=== PATIENT | male | born 1945 | race Caucasian/White ===

== ENCOUNTER → 2019-08-24 09:54 | Outpatient (BNVA) | payer MEDICARE, SELFPAY | PROVIDERS: Family Provider Family Medicine; PCP Family Medicine; Visit Provider Urology | DX: N13.8 Other obstructive and reflux uropathy (principal); N40.1 Benign prostatic hyperplasia with lower urinary tract symptoms; F17.210 Nicotine dependence, cigarettes, uncomplicated | CPT/HCPCS: 81001 ==

== ENCOUNTER → 2020-08-23 09:36 | Outpatient (BNVA) | payer MEDICARE, SELFPAY | PROVIDERS: Family Provider Family Medicine; PCP Family Medicine; Visit Provider Urology | DX: N40.1 Benign prostatic hyperplasia with lower urinary tract symptoms (principal); N13.8 Other obstructive and reflux uropathy | CPT/HCPCS: 81003 ==

== ENCOUNTER 2020-11-02 05:54 | Inpatient (IN) | payer MEDICARE, SELFPAY ==
[2020-11-02] VITALS (20 sets, daily range): BP systolic 90–118; BP diastolic 50–73; PULSE 60–144; RESP 18–26; TEMP 36.6; O2SAT 91–95; BMI 23.1
--- NOTE | 2020-11-02 06:07 | W.ED.FALL ---
HPI - Fall General: Chief Complaint: Fall Stated Complaint: FALL Time Seen by Provider: 11/02/20 05:57 History of Present Illness: HPI Narrative: 75-year-old male presents emergency room after a fall at home. He had a mechanical fall yesterday afternoon he is able to get himself up and get into the house and eventually get into bed he was not able to really bear weight on his left leg when he did that. This morning he was unable to get out of bed and called EMS. He states he only has pain if he tries to move or get around. On presentation here he is in atrial fibrillation with a rapid heart rate in the 140s to 150s he denies any chest pain or shortness of breath states he is actually fairly comfortable as long as he does not move around at all. MD complaint: fall Onset (ago): hour(s) Fall from: standing Fall witnessed: no Place fall occurred: home Loss of consciousness: None Prolonged down time: no Context: tripped/slipped Location of injury: pelvis (Left hip) Associated symptoms-after fall: Denies abdominal pain, chest pain, confusion, difficulty walking, headache(s), hematuria, lightheadedness, neck pain, numbness, short of breath, vertigo or weakness Review of Systems Const: Denies: fever(s), chills, body aches, change in appetite, fatigue or malaise ENMT: Denies: throat pain, ear or mastoid pain, nasal discharge or nasal congestion Card: Denies: chest pain or lightheadedness Resp: Denies: dyspnea, productive cough or non-productive cough GI: Denies: abdominal pain : Denies: hematuria Musc: Denies: neck pain Skin/Breast: Denies: rash or pruritus Neuro: Denies: headache(s), difficulty walking, vertigo or confusion PFSH ED PFSH: Medical History BPH w urinary obs/LUTS Chronic progressive lower urinary tract symptoms consistent with BPH with good response to double dose TAMSULOSIN. No objective concerns regarding risk Heart murmur Skin lesion Surgical History H/O cataract removal with insertion of prosthetic lens H/O hernia repair H/O knee surgery Social History Smoking and tobacco status: current every day smoker Alcohol intake: current Alcohol intake frequency: 0-2 Drinks per Day Lives independently: Yes Current occupational status: retired Physical Exam Const: COMMON NORMALS: no acute distress GENERAL APPEARANCE: cooperative and comfortable ORIENTATION/CONSCIOUSNESS: Yes awake, Yes oriented to person, Yes oriented to place and Yes oriented to time HENMT: COMMON NORMALS: normocephalic, atraumatic and hearing grossly normal bilaterally HEAD & SCALP: normocephalic and atraumatic Resp: COMMON NORMALS: normal respiratory effort, No retractions, No use of accessory muscles and clear to auscultation bilaterally AUSCULTATION: clear to auscultation bilaterally Cardio: RATE: tachycardic RHYTHM: abnormal rhythm irregularly irregular GI: COMMON NORMALS: Soft to palpation and No hepatosplenomegaly present AUSCULTATION: Yes normoactive bowel sounds PALPATION: Yes Soft to palpation, No Tenderness to palpation present (GI), No Guarding due to palpation present (GI) and Yes No hepatosplenomegaly present Extremity: COMMON NORMALS: normal to inspection, capillary refill normal, no clubbing, cyanosis or edema, no calf tenderness and no pedal edema Neuro: SENSORIUM/ORIENTATION: Yes oriented to person, Yes oriented to place and Yes oriented to time Skin: COMMON NORMALS: no rashes or lesions noted GENERAL SKIN EXAM: no rashes or lesions noted Course Vital Signs: Vital signs: Vital Signs Temperature 97.9 F 11/02/20 05:55 Pulse Rate 74 11/02/20 10:54 Respiratory Rate 18 11/02/20 10:54 Blood Pressure 107/59 11/02/20 10:54 Pulse Oximetry 94 11/02/20 10:54 MDM - Fall MDM Narrative: Medical decision making narrative: New onset atrial fibrillation with rapid ventricular response additionally patient has mild hyponatremia his primary issue is the left hip fracture. Discussed with Dr. Cachorro Morrissey has been started for rate control ordered an echo as well. Also discussed Dr. Murcia. Lab Data: Labs: Lab Results 11/02/20 11/02/20 11/02/20 Range/Units 07:20 07:20 07:20 WBC 11.6 H (4.0-10.0) 10^3/ uL RBC 4.87 (4.1-5.3) 10^6/u L Hgb 14.7 (11.7-16.6) g/dL Hct 43.1 (42.0-52.0) % MCV 88.5 (80-94) fl MCH 30.2 (28.0-34.0) pg MCHC 34.1 (30.0-36.0) g/dL RDW 14.2 (12.1-15.1) % Plt Count 262 (130-400) 10^3/c mm MPV 9.1 (7.4-10.4) fL Neut % (Auto) 84.4 % Lymph % (Auto) 7.7 % [place] % (Auto) 6.3 % Eos % (Auto) 0.7 % Baso % (Auto) 0.4 % Neut # (Auto) 9.80 H (1.8-7.7) 10^3/u L Lymph # (Auto) 0.9 (0.8-4.8) 10^3/u L [place] # (Auto) 0.7 (0.2-0.9) 10^3/u L Eos # (Auto) 0.1 (0.0-0.8) 10^3/u L Baso # (Auto) 0.1 (0.0-0.1) 10^3/u L Nucleated RBC % (a uto) 0 % Nucleated RBCs # 0.0 /100WBC PT (12.1-14.9) SECO NDS INR (0.8-1.2) APTT (23.9-36.7) SECO NDS Sodium 129 L (136-145) mmol/L Potassium 3.8 (3.5-5.1) mmol/L Chloride 93 L (98-107) mmol/L Carbon Dioxide 23 (22-29) mmol/L Anion Gap 16.8 (5-19) BUN 7 L (8-23) mg/dL Creatinine 0.4 L (0.7-1.2) mg/dL GFR Calculation Not Reportable Glucose 93 (65-115) mg/dL Calculated Osmolal ity 266 L (285-295) mOsm/k g Calcium 8.7 (8.5-10.5) mg/dL Magnesium 1.9 (1.7-2.3) mg/dL Total Bilirubin 1.2 (0.15-1.2) mg/dL AST 14 (0-40) U/L ALT 11 (0-41) U/L Alkaline Phosphata se 95 (40-130) IU/L Troponin T Baselin e 23 H (0-15) ng/L Troponin T 120 Min [place] (0-15) ng/L Delta Troponin T (0-10) ABS# Total Protein 7.3 (6.6-8.7) g/dL Albumin 3.7 (3.5-5.2) g/dL Globulin 3.6 (1.3-4.6) g/dL TSH 3.37 (0.27-4.20) uIU/ mL Urine Color (Yellow) Urine Appearance (CLEAR) Urine pH (5-7) Ur Specific Gravit y (1.005-1.030) Urine Protein (Negative) Urine Glucose (UA) (Normal) Urine Ketones (Negative) Urine Blood (Negative) Urine Nitrate (Negative) Urine Bilirubin (Negative) Urine Urobilinogen (Negative) mg/dL Ur Leukocyte Riana ase (Negative) Urine RBC (0-2) /hpf Urine WBC (0-5) /hpf Ur Squamous Epith Cells (0-5) /hpf Amorphous Sediment Urine Bacteria (NONE) /hpf Urine Mucus /hpf Urine Sperm /hpf 11/02/20 11/02/20 11/02/20 Range/Units 07:20 07:44 09:59 WBC (4.0-10.0) 10^3/ uL RBC (4.1-5.3) 10^6/u L Hgb (11.7-16.6) g/dL Hct (42.0-52.0) % MCV (80-94) fl MCH (28.0-34.0) pg MCHC (30.0-36.0) g/dL RDW (12.1-15.1) % Plt Count (130-400) 10^3/c mm MPV (7.4-10.4) fL Neut % (Auto) % Lymph % (Auto) % [place] % (Auto) % Eos % (Auto) % Baso % (Auto) % Neut # (Auto) (1.8-7.7) 10^3/u L Lymph # (Auto) (0.8-4.8) 10^3/u L [place] # (Auto) (0.2-0.9) 10^3/u L Eos # (Auto) (0.0-0.8) 10^3/u L Baso # (Auto) (0.0-0.1) 10^3/u L Nucleated RBC % (a uto) % Nucleated RBCs # /100WBC PT 15.40 H (12.1-14.9) SECO NDS INR 1.18 (0.8-1.2) APTT 29.5 (23.9-36.7) SECO NDS Sodium (136-145) mmol/L Potassium (3.5-5.1) mmol/L Chloride (98-107) mmol/L Carbon Dioxide (22-29) mmol/L Anion Gap (5-19) BUN (8-23) mg/dL Creatinine (0.7-1.2) mg/dL GFR Calculation Glucose (65-115) mg/dL Calculated Osmolal ity (285-295) mOsm/k g Calcium (8.5-10.5) mg/dL Magnesium (1.7-2.3) mg/dL Total Bilirubin (0.15-1.2) mg/dL AST (0-40) U/L ALT (0-41) U/L Alkaline Phosphata se (40-130) IU/L Troponin T Baselin e (0-15) ng/L Troponin T 120 Min [place] 20.88 H (0-15) ng/L Delta Troponin T -2.12 L (0-10) ABS# Total Protein (6.6-8.7) g/dL Albumin (3.5-5.2) g/dL Globulin (1.3-4.6) g/dL TSH (0.27-4.20) uIU/ mL Urine Color Yellow (Yellow) Urine Appearance Clear (CLEAR) Urine pH 6.5 (5-7) Ur Specific Gravit y 1.015 (1.005-1.030) Urine Protein Neg (Negative) Urine Glucose (UA) Norm (Normal) Urine Ketones 2+ H (Negative) Urine Blood 2+ H (Negative) Urine Nitrate Negative (Negative) Urine Bilirubin Neg (Negative) Urine Urobilinogen 4 H (Negative) mg/dL Ur Leukocyte Riana ase Negative (Negative) Urine RBC 0-4 H (0-2) /hpf Urine WBC None (0-5) /hpf Ur Squamous Epith Cells 0-4 H (0-5) /hpf Amorphous Sediment Not Reportable Urine Bacteria Trace (NONE) /hpf Urine Mucus 1+ /hpf Urine Sperm 1+ /hpf Discharge Plan Discharge Patient Disposition: Admitted As Inpatient Clinical Impression: Atrial fibrillation, Closed left hip fracture, BPH w urinary obs/LUTS Condition: Stable Coding Level of Care Code ED Supervisor for Chg Fwd Exam Detailed
--- NOTE | 2020-11-02 06:08 | XRR_ITS ---
PROCEDURE INFORMATION: Exam: XR Left Hip Exam date and time: 11/02/2020 6:08 AM Age: 75 years old Clinical indication: Injury or trauma; Fall; Blunt trauma (contusions or hematomas); Left; Hip; Injury details: Fell yesterday; Additional info: Fall/pain TECHNIQUE: Imaging protocol: XR Left hip. Views: 2 or 3 views hip with pelvis when performed. COMPARISON: CTA Lower Extremity [id number] 11/16/2015 7:56 AM FINDINGS: Bones/joints: There is a transverse impacted fracture through the left femoral neck with varus deformity. Soft tissues: Unremarkable. XR/XR hip LT 2-3V wo/w pel* [id number] IMPRESSION: Impacted fracture of the left femoral neck.
--- NOTE | 2020-11-02 06:10 | ECG_ITS ---
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 Measurements Intervals [place] Rate: 147 P: MD: QRS: -52 QRSD: 88 T: 64 QT: 275 QTc: 430 Interpretive Statements ATRIAL FIBRILLATION WITH RVR LEFT AXIS DEVIATION [QRS AXIS < -30] Compared to ECG 01/30/2016 10:17:51 Ventricular premature complex(es) now present Sinus rhythm no longer present Electronically Signed On 11-02-2020 20:06:09 CDT by David Merino M.D. [id number]
[2020-11-02] MEDS: sodium chloride 0.9% 500 ML 999 ML IV (06:15)
--- NOTE | 2020-11-02 06:38 | USCV_ITS ---
Elliott Anderson Age: 75 Gender: M : 1945 Exam Date: 11/02/2020 09:18 Ordering Phys: Romeo Cortes DO Technologist: Exam Location: [facility] [place] Indication: MURM BP: 104 / 57 HR: 113 Rhythm: Sinus Technical Quality: Difficult MEASUREMENTS (Male / Female) Normal Values 2D ECHO LV Diastolic Diameter PLAX 3.5 cm 4.2 - 5.9 / 3.9 - 5.3 cm LV Systolic Diameter PLAX 2.5 cm IVS Diastolic Thickness 1.0 cm 0.6 - 1.0 / 0.6 - 0.9 cm IVS Systolic Thickness 1.6 cm LVPW Diastolic Thickness 1.1 cm 0.6 - 1.0 / 0.6 - 0.9 cm LVPW Systolic Thickness 1.1 cm LVOT Diameter 2.0 cm LV Ejection Fraction 2D Teich 53.5 % LV Ejection Fraction MOD 2C 51.1 % LV Ejection Fraction 2C AL 51.8 % LA Diameter 3.1 cm LA Width 4.9 cm LA Height 4.9 cm RA Width 4.3 cm RA Height 5.0 cm Aorta at Sinotubular Diameter 2.9 cm DOPPLER AV Peak Velocity 461.2 cm/s LVOT Peak Velocity 94.0 cm/s AV Area Cont Eq vti 0.8 cm squared AV Area Cont Eq pk 0.7 cm squared MV Area PHT 5.0 cm squared Mitral E to A Ratio 1.6 MV E' Velocity 49.0 cm/s Mitral E to MV E' Ratio 7.4 Mitral E to LV E' Lateral Ratio 6.0 Mitral E to LV E' Septal Ratio 9.8 TR Peak Velocity 259.8 cm/s TR Peak Gradient 27.0 mmHg TV Peak E Velocity 119.0 cm/s Right Atrial Pressure 3.0 mmHg Pulmonary Artery Systolic Pressu 30.0 mmHg FINDINGS Left Ventricle Normal left ventricular size. LV systolic function is normal with EF of 55-60%. No regional wall motion abnormalities. Diastolic function is indeterminate because of atrial fibrillation Right Ventricle The right ventricle is normal in size and function. Right Atrium The right atrium is normal in size. Left Atrium The left atrium is normal in size. Mitral Valve Grossly normal without significant stenosis or prolapse. There is no mitral regurgitation. Aortic Valve Grossly aortic valve is thick and calcified. Severe aortic stenosis is noted. By continuity equation, aortic valve area is 0.73cm2 and mean gradient across the aortic valve is 41mmHg. There is no aortic regurgitation. Tricuspid Valve Structurally normal tricuspid valve without significant stenosis or regurgitation. Insufficient TR jet to calculate RVSP Pulmonic Valve Structurally normal pulmonic valve without significant stenosis. There is no pulmonic regurgitation. Pericardium Normal pericardium without effusion. Aorta Normal ascending aorta dimension. CONCLUSIONS Technically limited quality echocardiogram because of poor ultrasonic windows. LV systolic function is normal with EF of 55 to 60%. Diastolic function is indeterminate because of atrial fibrillation. Aortic valve is grossly thick and calcified. May continue to equation, severe aortic stenosis is noted with aortic valve area of 0.73 cm squared and mean gradient across the valve of 41 mmHg. Compared to prior echocardiogram from 2017, aortic stenosis has progressed from moderate at that time to severe now. David Merino MD (Electronically Signed) Final Date: 02 November 2020 12:42 S
--- NOTE | 2020-11-02 06:43 | XRR_ITS ---
PROCEDURE INFORMATION: Exam: XR Chest Exam date and time: 11/02/2020 6:43 AM Age: 75 years old Clinical indication: Chest pressure; Patient HX: Fall hip pain. Film was done supine. ; Additional info: New onset afib TECHNIQUE: Imaging protocol: XR of the chest. Views: 1 view. COMPARISON: CTA Lower Extremity [id number] 11/16/2015 7:56 AM FINDINGS: Lungs: There is pulmonary vascular prominence with bilateral hazy interstitial pulmonary infiltrates. These findings could be due to heart failure with interstitial edema. A superimposed interstitial pneumonitis cannot be excluded. Pleural spaces: Unremarkable. No pleural effusion. No pneumothorax. Heart/Mediastinum: Heart is not enlarged. There is tortuosity and calcification of the aorta. Bones/joints: Unremarkable. XR/XR chest 1V portable [id number] IMPRESSION: There is pulmonary vascular congestion with bilateral interstitial hazy infiltrates suggesting heart failure with interstitial edema. Superimposed interstitial pneumonia is not excluded.
[2020-11-02 07:30] LABS: Basophils # 0.1 10^3/uL (0.0-0.1); Basophils % 0.4 %; Eosinophils # 0.1 10^3/uL (0.0-0.8); Eosinophils % 0.7 %; Hematocrit 43.1 % (42.0-52.0); Hemoglobin 14.7 g/dL (11.7-16.6); Lymphocytes # 0.9 10^3/uL (0.8-4.8); Lymphocytes % 7.7 %; Mean Corpuscular HGB Conc 34.1 g/dL (30.0-36.0); Mean Corpuscular Hemoglobin 30.2 pg (28.0-34.0); Mean Corpuscular Volume 88.5 fl (80-94); Mean Platelet Volume 9.1 fL (7.4-10.4); Monocytes # 0.7 10^3/uL (0.2-0.9); Monocytes % 6.3 %; Neutrophils % 84.4 %; Nucleated Red Blood Cells % 0 %; Platelet Count 262 10^3/cmm (130-400); Red Blood Count 4.87 10^6/uL (4.1-5.3); Red Cell Distribution Width 14.2 % (12.1-15.1); White Blood Count 11.6 10^3/uL (4.0-10.0)
--- NOTE | 2020-11-02 07:42 | PM.HP ---
Providers/Chief Complaint Primary Care Provider: Leonard Huerta DO Chief Complaint: FALL History of Present Illness Elliott Anderson is a 75 year old male who presents to the hospital with history of fall yesterday and left hip pain since that time. He reports he was carrying a lot of eggs and some orange juice and he fell after loss losing his balance. He denies any dizziness, head injury, loss of consciousness. He reports he has a little bit of breast pain as well on the left. He denies any severe pain when he takes a deep breath. He denies any frequent falls. He reports he does not know that he has any lung disease, but certainly might as he has a long history of smoking. Denies any prior history of coronary disease, or arrhythmia. He reports he has had a heart murmur in the past but this has not been worked up. Denies history of Covid. Was vaccinated April. Review of Systems General: Reports: 10 or more systems reviewed and unremarkable except in HPI and below Const: Denies: fever(s) or chills Eyes: Denies: change in vision ENMT: Denies: throat pain Card: Reports: chest pain (Left-sided musculoskeletal following fall) Resp: Denies: dyspnea (Denies any shortness of breath above baseline.) GI: Denies: abdominal pain : Denies: flank pain Musc: Denies: neck pain Skin/Breast: Denies: rash Neuro: Denies: headache(s) Psych: Denies: anxiety or depression Endo: Denies: polyuria Yohan/Lymph: Denies: easy bruising All/Imm: Denies: urticaria Medications/Allergies Home Medications Medication Instructions Recorded Confirmed Last Taken Type coenzyme Q10 [CoQ-10] 100 mg PO DAILY 11/02/20 11/02/20 10/26/20 History multivitamin 1 tab PO DAILY 11/02/20 11/02/20 10/26/20 History tamsulosin 0.4 mg PO BID 11/02/20 11/02/20 11/01/20 History Allergies Allergy/AdvReac Type Severity Reaction Status Date / Time No Known Allergies Allergy Verified 11/02/20 07:46 PFSH Acute PFSH: Medical History (Updated 11/02/20 @ 07:48 by Kana Martinez MD) BPH w urinary obs/LUTS Chronic progressive lower urinary tract symptoms consistent with BPH with good response to double dose TAMSULOSIN. No objective concerns regarding risk Heart murmur Skin lesion Surgical History H/O cataract removal with insertion of prosthetic lens H/O hernia repair H/O knee surgery Social History Smoking and tobacco status: current every day smoker Alcohol intake: current Alcohol intake frequency: 0-2 Drinks per Day Lives independently: Yes Current occupational status: retired Vitals/I&O/Wt Last Vital Signs Temp 97.9 F 11/02/20 05:55 Pulse 122 H 11/02/20 07:41 Resp 20 H 11/02/20 07:41 BP 111/61 11/02/20 07:41 Pulse Ox 95 11/02/20 07:41 11/01/20 11/02/20 11/02/20 22:59 06:59 14:59 Intake Total 5.083 / 5.083 Balance 5.083 / 5.083 Weight last 48 hrs Weight 79.379 kg Physical Exam Narrative: EXAM NARRATIVE: General exam no distress HEENT: Pupils equally round. Oropharynx clear. Neck is supple no lymphadenopathy thyromegaly Cardiovascular irregularly irregular with accelerated rate but 3/6 systolic murmur heard best at the right upper sternal border, honking in quality Lungs bilateral expiratory wheezes Abdomen is soft with positive bowel sounds. No obvious organomegaly exam is deferred, Jones is noted Extremities no cyanosis clubbing or edema. Some shortening of the left lower extremity with external rotation is noted. Distal pulses intact. Skin no rash Neuro no obvious focal deficits. Urinary Catheter Management^: Jones: Cath Placed During This Visit: yes Urinary Catheter Date of Insertion: 11/02/20 Urinary Catheter Time of Insertion: 07:18 Data : 11/02/20 07:20 11/02/20 07:20 Other data: Left hip film demonstrates leftfemoral neck fracture with shortening. Final reading pending. Chest x-ray demonstrates hilar fullness, COPD/fibrotic disease. Final reading pending. \EKG demonstrates a rate of 147, irregular, A. fib with RVR, left axis deviation, nonspecific ST-T wave changes. 1 PVC is noted. A&P Assessment and plan (1) Closed left hip fracture: No other obvious injuries Will need surgical repair Orthopedic consultation Will allow p.o. diet. The surgical repair is unlikely to occur today. This is secondary to need for treatment of atrial fibrillation with rapid ventricular rate. Status: Acute (2) Atrial fibrillation: Continue Cardizem drip Initiate metoprolol 25 mg p.o. twice daily, titrate up as needed Echocardiogram, suspect aortic stenosis Check TSH, magnesium, electrolytes Cardiology consultation Consider full dose anticoagulation, following surgical repair. Status: Acute (3) Fall: Mechanical fall, no evidence of syncope Status: Acute (4) Wheezing: Budesonide DuoNeb as needed Await formal reading of chest x-ray Status: Acute (5) Heart murmur: Echocardiogram Status: Acute (6) Tobacco dependency: Encourage abstinence Status: Acute (7) BPH w urinary obs/LUTS: Status: Chronic Additional A&P Information Full code SCDs for DVT prophylaxis. Consider pharmacologic DVT prophylaxis with heparin or Lovenox pending further clarification of surgical timing. Secondary to atrial fibrillation will likely need long-term anticoagulation following surgery as well. Attestations Medical Necessity Statement*: Will need greater than 2 midnight stay for treatment of hip fracture in atrial fibrillation with rapid ventricular rate Time Spent in Patient Care: Greater than 35 minutes Coding Level of Care Code Acute Rn Outpatient Surgery for g Fwd Diagnoses Closed left hip fracture S72.002A Atrial fibrillation I48.91 Fall W19.XXXA Wheezing R06.2 Heart murmur R01.1 Tobacco dependency F17.200 BPH w urinary obs/LUTS N40.1; N13.8
[2020-11-02 07:44] LABS: INR 1.18 (0.8-1.2); Partial Thromboplastin Time 29.5 SECONDS (23.9-36.7)
--- NOTE | 2020-11-02 07:47 | PC.PHAR ---
pt states he takes care of his own medications-pt states he only takes one rx medication which is flomax-pt states he hasnt taken his otc meds for a week
[2020-11-02 07:56] LABS: Add Urine Culture? No; Bacteria Urine TRACE /hpf; Bilirubin Urine Neg (Negative); Blood Urine 2+ (Negative); Glucose Urine UA Norm (Normal); Ketones Urine 2+ (Negative); Leukocyte Esterase Urine Negative (Negative); Mucus Urine 1+ /hpf; Nitrate Urine Negative (Negative); Protein Urine Neg (Negative); RBC Urine 0-4 /hpf (0-2); Specific Gravity, Urine 1.015 (1.005-1.030); Sperm Urine 1+ /hpf; Squamous Epithelial Cell Urine 0-4 /hpf (0-5); Urine Appearance Clear (CLEAR); Urine Color Yellow (Yellow); Urobilinogen Urine 4 mg/dL (Negative); pH Urine 6.5 (5-7)
[2020-11-02 07:57] LABS: Troponin(5th) Baseline 23 ng/L (0-15)
[2020-11-02 08:07] LABS: Alanine Aminotransferase 11 U/L (0-41); Albumin Level 3.7 g/dL (3.5-5.2); Alkaline Phosphatase 95 IU/L (40-130); Aspartate Amino Transferase 14 U/L (0-40); Blood Urea Nitrogen 7 mg/dL (8-23); Calcium 8.7 mg/dL (8.5-10.5); Carbon Dioxide 23 mmol/L (22-29); Chloride 93 mmol/L (98-107); Globulin 3.6 g/dL (1.3-4.6); Glucose 93 mg/dL (65-115); Magnesium 1.9 mg/dL (1.7-2.3); Osmolality Calculated 266 mOsm/kg (285-295); Sodium 129 mmol/L (136-145); Thyroid Stimulating Hormone 3.37 uIU/mL (0.27-4.20); Total Bilirubin 1.2 mg/dL (0.15-1.2); Total Protein 7.3 g/dL (6.6-8.7)
--- NOTE | 2020-11-02 08:10 | ECG_ITS ---
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 Measurements Intervals [place] Rate: 111 P: [place]: QRS: -48 QRSD: 101 T: 73 QT: 327 QTc: 446 Interpretive Statements ATRIAL FIBRILLATION WITH RAPID VENTRICULAR RESPONSE LEFT ANTERIOR FASCICULAR BLOCK [QRS AXIS <= -45, QR IN I, RS IN II] Compared to ECG 01/30/2016 10:17:51 Left anterior fascicular block now present Sinus rhythm no longer present Left-axis deviation no longer present Electronically Signed On 11-02-2020 20:09:45 CDT by David Merino M.D. [id number]
[2020-11-02 08:12] LABS: Anion Gap 16.8 (5-19); Potassium 3.8 mmol/L (3.5-5.1)
[2020-11-02] MEDS: heparin 5,000 unit/mL INJ 1 mL 5000 UNIT SUBCUT (08:25)
[2020-11-02 10:23] LABS: Troponin 5 2HR 20.88 ng/L (0-15)
[2020-11-02 10:30] LABS: Troponin 5 2HR Delta -2.12 ABS# (0-10)
[2020-11-02] MEDS: metoprolol tartrate 25 mg Tablet PO (10:55)
--- NOTE | 2020-11-02 12:10 | ECG_ITS ---
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 Measurements Intervals [place] Rate: 60 P: [place]: QRS: -42 QRSD: 102 T: 62 QT: 422 QTc: 422 Interpretive Statements ATRIAL FIBRILLATION INCOMPLETE RIGHT BUNDLE BRANCH BLOCK [90+ ms QRS DURATION, TERMINAL R IN V1/V2, 40+ ms S IN I/aVL/V4/V5/V6] Compared to ECG 11/02/2020 08:23:36 Left-axis deviation now present Incomplete right bundle-branch block now present Left anterior fascicular block no longer present Electronically Signed On 11-02-2020 20:09:06 CDT by David Merino M.D. [id number]
[2020-11-02] MEDS: D5-NS 0.45% + KCL 20 mEq 20 MEQ/1,000 ML BAG 75 MEQ IV (12:26)
--- NOTE | 2020-11-02 12:47 | PM.CONSULT ---
Providers/Reason For Consult Consulting Physician/Specialty*: David Merino MD/ Cardiology Reason for Consult*: Pre op clearance/aortic stenosis Requesting Physician: Dr Martinez Attending Physician: Dolores Villanueva MD Primary Care Provider: Leonard Huerta DO History of Present Illness History of Present Illness Elliott Anderson is a 75 year old male with history of moderate aortic stenosis on echo performed in 2017, presented to the hospital after a fall and was found to have left hip fracture. Plan was to perform surgery and that is the reason cardiology was consulted for preop clearance. Patient also went into A. fib with RVR. He was started on Cardizem drip. Heart rate is controlled. Patient has mild palpable chest discomfort on the left side following fall. No shortness of breath at this time. He was having palpitations before. Echocardiogram was performed and showed severe aortic stenosis with a valve area of 0.7 cm?, mean gradient of 41 mmHg and an EF of 55%. EKG shows atrial fibrillation with RVR. Troponins did not trend up significantly. Denies any symptoms of chest pain at baseline prior to current episode but does get short of breath on exertion. Review of Systems General: Reports: 10 or more systems reviewed and unremarkable except in HPI and below Const: Denies: fever(s) or chills Eyes: Denies: change in vision ENMT: Denies: throat pain Card: Reports: chest pain (Left-sided musculoskeletal following fall) Resp: Reports: dyspnea GI: Denies: abdominal pain : Denies: flank pain Musc: Denies: neck pain Skin/Breast: Denies: rash Neuro: Denies: headache(s) Psych: Denies: anxiety or depression Endo: Denies: polyuria Yohan/Lymph: Denies: easy bruising All/Imm: Denies: urticaria Meds/Allergies Home Medications and Allergies Home Medications Medication Instructions Recorded Confirmed Last Taken Type coenzyme Q10 [CoQ-10] 100 mg PO DAILY 11/02/20 11/02/20 10/26/20 History multivitamin 1 tab PO DAILY 11/02/20 11/02/20 10/26/20 History tamsulosin 0.4 mg PO BID 11/02/20 11/02/20 11/01/20 History Allergies Allergy/AdvReac Type Severity Reaction Status Date / Time No Known Allergies Allergy Verified 11/02/20 07:46 Current Medications Current Medications Generic Name Dose Route Start Last Admin Trade Name Ernst PRN Reason Stop Dose Admin Heparin Sodium (Beef Lung) 5,000 unit 11/02/20 08:00 11/02/20 08:25 Heparin 5,000 Unit/Ml Inj 1 Ml SUBCUT 5,000 unit Q12H ANNA Administration Diltiazem HCl 125 mg/ Sodium 125 mls @ 0 mls/hr 11/02/20 06:15 11/02/20 12:32 Chloride IV 5 mg/hr .Q0M ANNA 5 mls/hr Titration Protocol Per Protocol Potassium Chloride/Dextrose/Sod Cl 20 meq in 1,000 mls @ 75 mls/hr 11/02/20 12:07 11/02/20 12:26 D5-Ns 0.45% + Kcl 20 Meq IV 75 mls/hr .[id number] ANNA Administration Metoprolol Tartrate 25 mg 11/02/20 09:00 11/02/20 10:55 Metoprolol Tartrate 25 Mg Tablet PO 25 mg BID@0900,2100 ANNA Administration PFSH Acute PFSH: Medical History BPH w urinary obs/LUTS Chronic progressive lower urinary tract symptoms consistent with BPH with good response to double dose TAMSULOSIN. No objective concerns regarding risk Heart murmur Skin lesion Surgical History H/O cataract removal with insertion of prosthetic lens H/O hernia repair H/O knee surgery Social History Smoking and tobacco status: current every day smoker Alcohol intake: current Alcohol intake frequency: 0-2 Drinks per Day Lives independently: Yes Current occupational status: retired Vitals/I&O/Wt Last Vital Signs Temp 97.9 F 11/02/20 05:55 Pulse 72 11/02/20 12:08 Resp 18 11/02/20 12:08 BP 100/54 11/02/20 12:08 Pulse Ox 92 11/02/20 12:08 11/01/20 11/02/20 11/02/20 22:59 06:59 14:59 Intake Total 74.917 / 74.917 Balance 74.917 / 74.917 Weight last 48 hrs Weight 175 lb Physical Exam Narrative: EXAM NARRATIVE: GENERAL: Patient is alert, awake and oriented x3. [] NECK: No jugular vein distension. [] HEENT: No cyanosis. No icterus. No pallor. [] HEART: Irregularly irregular heart rhyhtm, grade 4/6 systolic murmur best heard on right sternal borders radiating to the carotids LUNGS: Clear to auscultate bilaterally. [] ABDOMEN: Soft, nontender and nondistended. Positive bowel sounds. No guarding, rebound or tenderness. [] CENTRAL NERVOUS SYSTEM: Grossly nonfocal. [] EXTREMITIES: Lower extremities with 1+ edema bilaterally. Pulses palpable in the lower extremities, both dorsalis pedis and posterior tibial. [] Urinary Catheter Management^: Jones: Cath Placed During This Visit: yes Urinary Catheter Date of Insertion: 11/02/20 Urinary Catheter Time of Insertion: 07:18 A&P Assessment and plan (1) Atrial fibrillation: Status: Acute (2) Severe aortic stenosis: Status: Acute (3) Tobacco dependency: Status: Acute (4) Pre-operative clearance: Status: Acute Patient has presented with hip fracture and will need surgery for that. He has new onset atrial fibrillation which has been rate controlled at this time. Hold off on anticoagulation in anticipation of surgical procedure. Can receive DVT prophylaxis dose. Patient is at high cardiac risk to undergo surgical procedure given his severe aortic stenosis. We will recommend transferring him to tertiary care center for orthopedic surgery with ability to perform balloon valvuloplasty/for TAVR if needed to emergently and have cardiac anesthesia availability. Patient's heart rate is well controlled at this time. Continue current medications. Thank you for involving us with care of this patient. Please call with questions. Coding Level of Care Code Acute Balance Wheel Motion Inspector for Jw Mazariegos Diagnoses Atrial fibrillation I48.91 Severe aortic stenosis I35.0 Tobacco dependency F17.200 Pre-operative clearance Z01.818
--- NOTE | 2020-11-02 12:49 | PM.MISC ---
Miscellaneous Note Purpose of Documentation: Review of x-ray with decision for appropriate intervention. Subsequent cancellation secondary to medical issues. Note: This morning, I was consulted by the emergency room physician regarding this patient with a subcapital left hip fracture. I reviewed the imaging studies and scheduled him for surgical intervention after cardiology evaluation and medical optimization. At approximately 12:15 p.m., I received a call from the hospitalist stating that the patient would likely be transferred secondary to severe aortic stenosis. Currently, this transfer is pending, but a formal consultation will not be made at this time at the request of the hospitalist team.
[2020-11-02 13:03] LABS: SARS Covid-2 Antigen Negative (Negative)
--- NOTE | 2020-11-02 13:07 | PM.TDS ---
Transfer Summary Providers Date of Admission: 11/02/20 06:58 Date of Discharge: 11/02/20 Attending Provider at Admission: Kana Martinez MD Attending Provider at Transfer: Kana Martinez MD Primary Care Provider: Leonard Huerta DO Anticipated Date of Transfer: Anticipated date of transfer: 11/02/20 Receiving Facility & Provider: Receiving Provider: [Dr. Moffett] Receiving facility: [[facility]] Diagnoses at Discharge Discharge Diagnosis (1) Closed left hip fracture: Status: Acute (2) Atrial fibrillation: Status: Acute (3) Fall: Status: Acute (4) Wheezing: Status: Acute (5) Heart murmur: Status: Acute (6) Tobacco dependency: Status: Acute (7) BPH w urinary obs/LUTS: Status: Chronic Permanent problem details: Chronic progressive lower urinary tract symptoms consistent with BPH with good response to double dose TAMSULOSIN. No objective concerns regarding risk Reason for Visit Reason for Visit: FALL Hospital Course Hospital Course Elliott presented to hospital with history of mechanical fall the day previously. He was having left hip pain. On arrival to the emergency department he was found to be in atrial fibrillation with rapid ventricular rate. X-ray of the hip demonstrated a left femoral neck fracture with varus deformity and impaction of the fracture site. In the emergency department the ER physician ordered Cardizem for control of his atrial fibrillation. I was called for admission. The patient was known to have a cardiac murmur. On auscultation this appeared to be aortic stenosis. Echocardiogram was obtained, as well as EKG troponin and other lab work. Troponin demonstrated no significant delta. EKG demonstrated a right bundle branch block. No ST elevation or ST depression that was significant was noted. Echocardiogram was called to me by cardiology, and demonstrated severe aortic stenosis with a valve area of 0.7, significant gradient, and an EF of 50 to 55%. Cardiology believe the patient needed transfer to a larger facility who has the ability to do aortic valvuloplasty/TAVR and have cardiac anesthesia available secondary to his aortic stenosis. This was arranged in [facility] kindly accepted the patient. When I last evaluated the patient vital signs were stable, heart rate was 70, Cardizem drip was at 10 mg/h. Metoprolol had been initiated on the patient to try to transition him off Cardizem drip, and he received his first dose of 25 mg in the emergency department. Physical Exam Narrative: EXAM NARRATIVE: See exam done earlier today, no changes Urinary Catheter Management^: Jones: Cath Placed During This Visit: yes Urinary Catheter Date of Insertion: 11/02/20 Urinary Catheter Time of Insertion: 07:18 TS Data Data Completed and Pending: Completed Studies During Hospitalization Category Date Time Status XR chest 1V cole ble [id number] Stat Exams 11/02/20 06:43 Completed XR hip LT 2-3V wo /w pel* [id number] Stat Exams 11/02/20 06:08 Completed CV. echo complete * [id number] Stat Ultrasound 11/02/20 06:38 Completed Pending at discharge Category Date Time Status Complete Blood Co unt w/Auto AM LABS Lab 11/03/20 04:00 Ordered Comprehensive Met abolic Panel AM LA BS Lab 11/03/20 04:00 Ordered Troponin(5th) 6 h our. Timed Lab 11/02/20 12:10 Ordered Labs from last 24 hours 11/02/20 11/02/20 11/02/20 12:37 09:59 07:44 WBC RBC Hgb Hct MCV MCH MCHC RDW Plt Count MPV Neut % (Auto) Lymph % (Auto) Troup % (Auto) Eos % (Auto) Baso % (Auto) Neut # (Auto) Lymph # (Auto) Troup # (Auto) Eos # (Auto) Baso # (Auto) Nucleated RBC % (a uto) Nucleated RBCs # PT INR APTT Sodium Potassium Chloride Carbon Dioxide Anion Gap BUN Creatinine GFR Calculation Glucose Calculated Osmolal ity Calcium Magnesium Total Bilirubin AST ALT Alkaline Phosphata se Troponin T Baselin e Troponin T 120 Min [place] 20.88 H Delta Troponin T -2.12 L Total Protein Albumin Globulin TSH Urine Color Yellow Urine Appearance Clear Urine pH 6.5 Ur Specific Gravit y 1.015 Urine Protein Neg Urine Glucose (UA) Norm Urine Ketones 2+ H Urine Blood 2+ H Urine Nitrate Negative Urine Bilirubin Neg Urine Urobilinogen 4 H Ur Leukocyte Riana ase Negative Urine RBC 0-4 H Urine WBC None Ur Squamous Epith Cells 0-4 H Amorphous Sediment Not Reportable Urine Bacteria Trace Urine Mucus 1+ Urine Sperm 1+ SARS-CoV-2 Ag (Rap id) Negative 11/02/20 11/02/20 11/02/20 07:20 07:20 07:20 WBC RBC Hgb Hct MCV MCH MCHC RDW Plt Count MPV Neut % (Auto) Lymph % (Auto) Troup % (Auto) Eos % (Auto) Baso % (Auto) Neut # (Auto) Lymph # (Auto) Troup # (Auto) Eos # (Auto) Baso # (Auto) Nucleated RBC % (a uto) Nucleated RBCs # PT 15.40 H INR 1.18 APTT 29.5 Sodium 129 L Potassium 3.8 Chloride 93 L Carbon Dioxide 23 Anion Gap 16.8 BUN 7 L Creatinine 0.4 L GFR Calculation Not Reportable Glucose 93 Calculated Osmolal ity 266 L Calcium 8.7 Magnesium 1.9 Total Bilirubin 1.2 AST 14 ALT 11 Alkaline Phosphata se 95 Troponin T Baselin e 23 H Troponin T 120 Min [place] Delta Troponin T Total Protein 7.3 Albumin 3.7 Globulin 3.6 TSH 3.37 Urine Color Urine Appearance Urine pH Ur Specific Gravit y Urine Protein Urine Glucose (UA) Urine Ketones Urine Blood Urine Nitrate Urine Bilirubin Urine Urobilinogen Ur Leukocyte Riana ase Urine RBC Urine WBC Ur Squamous Epith Cells Amorphous Sediment Urine Bacteria Urine Mucus Urine Sperm SARS-CoV-2 Ag (Rap id) 11/02/20 07:20 WBC 11.6 H RBC 4.87 Hgb 14.7 Hct 43.1 MCV 88.5 MCH 30.2 MCHC 34.1 RDW 14.2 Plt Count 262 MPV 9.1 Neut % (Auto) 84.4 Lymph % (Auto) 7.7 Troup % (Auto) 6.3 Eos % (Auto) 0.7 Baso % (Auto) 0.4 Neut # (Auto) 9.80 H Lymph # (Auto) 0.9 Troup # (Auto) 0.7 Eos # (Auto) 0.1 Baso # (Auto) 0.1 Nucleated RBC % (a uto) 0 Nucleated RBCs # 0.0 PT INR APTT Sodium Potassium Chloride Carbon Dioxide Anion Gap BUN Creatinine GFR Calculation Glucose Calculated Osmolal ity Calcium Magnesium Total Bilirubin AST ALT Alkaline Phosphata se Troponin T Baselin e Troponin T 120 Min [place] Delta Troponin T Total Protein Albumin Globulin TSH Urine Color Urine Appearance Urine pH Ur Specific Gravit y Urine Protein Urine Glucose (UA) Urine Ketones Urine Blood Urine Nitrate Urine Bilirubin Urine Urobilinogen Ur Leukocyte Riana ase Urine RBC Urine WBC Ur Squamous Epith Cells Amorphous Sediment Urine Bacteria Urine Mucus Urine Sperm SARS-CoV-2 Ag (Rap id) Vitals: Last Vital Signs Temp 97.9 F 11/02/20 05:55 Pulse 63 11/02/20 13:03 Resp 20 H 11/02/20 13:03 BP 96/61 11/02/20 13:03 Pulse Ox 93 11/02/20 13:03 TS Medications Medications Home Medications coenzyme Q10 [CoQ-10] 100 mg PO DAILY 11/02/20 [History Confirmed 11/02/20] multivitamin 1 tab PO DAILY 11/02/20 [History Confirmed 11/02/20] tamsulosin 0.4 mg PO BID 11/02/20 [History Confirmed 11/02/20] Active Medications Acetaminophen (Acetaminophen 325 Mg Tablet) 650 mg PO Q6H PRN PRN Reason: Mild/Mod Pain Or Temp >/= 101 Albuterol/Ipratropium (Ipratropium-Albuterol 3 Ml Neb) 3 ml INHALATION Q6H PRN PRN Reason: SHORTNESS OF BREATH Budesonide (Budesonide 0.5 Mg/2 Ml Neb) 0.5 mg INHALATION BID.RESPIRATORY ANNA Heparin Sodium (Beef Lung) (Heparin 5,000 Unit/Ml Inj 1 Ml) 5,000 unit SUBCUT Q12H ANNA Last Admin: 11/02/20 08:25 Dose: 5,000 unit Documented by: Diltiazem HCl 125 mg/ Sodium (Chloride) 125 mls @ 0 mls/hr IV .Q0M ANNA; Protocol Last Titration: 11/02/20 12:32 Dose: 5 mg/hr, 5 mls/hr Documented by: Potassium Chloride/Dextrose/Sod Cl (D5-Ns 0.45% + Kcl 20 Meq) 20 meq in 1,000 mls @ 75 mls/hr IV .[id number] ANNA Last Admin: 11/02/20 12:26 Dose: 75 mls/hr Documented by: Metoprolol Tartrate (Metoprolol Tartrate 25 Mg Tablet) 25 mg PO BID@0900,2100 [facility] Last Admin: 11/02/20 10:55 Dose: 25 mg Documented by: Morphine Sulfate (Morphine 4 Mg/Ml Sdv 1 Ml) 4 mg IVP Q4H PRN PRN Reason: SEVERE PAIN Ondansetron HCl (Ondansetron 2 Mg/Ml Sdv 2 Ml) 4 mg IVP Q6H PRN PRN Reason: vomiting, or N/V if npo Tamsulosin HCl (Tamsulosin 0.4 Mg Capsule) 1 mg PO BID [facility] Discharge Plan Discharge Patient Disposition: Xfer Short-Term Hosp Condition: Stable Prescriptions: No Action multivitamin Tablet 1 tab PO DAILY RF: 0 CoQ-10 100 mg Capsule 100 mg PO DAILY RF: 0 tamsulosin 0.4 mg capsule 0.4 mg PO BID RF: 0 Discharge Orders: Transfer Out of Facility (Order); Ordered 11/02/20 Ordered By: Kana Martinez Referrals: Leonard Huerta DO [Primary Care Provider] - Transfer Attestations Time Spent in Transfer Care*: greater than 30 min Status at Transfer: Cognitive status at transfer: cognitively intact, Quality Metrics Clinical Quality Measures: During this hospital stay, did patient experience: None Coding Level of Care Code Acute Pusher Runner for Chg Fwd Diagnoses Closed left hip fracture S72.002A Atrial fibrillation I48.91 Fall W19.XXXA Wheezing R06.2 Heart murmur R01.1 Tobacco dependency F17.200 BPH w urinary obs/LUTS N40.1; N13.8
[2020-11-02 14:25] LABS: Troponin 5 6HR 20.09 ng/L (0-15)
[2020-11-02 14:29] LABS: Troponin 5 6HR Delta -2.91 ng/L (0-12)
[2020-11-02] MEDS: heparin drip 25,000 UNIT/500 ML PREMIX 22.23 UNIT IV (14:37)
--- NOTE | 2020-11-03 18:20 | PC.RESP ---
Smoking Cessation information sent to patient.
== END 2020-11-02 19:08 | disposition short-term general hospital (02) | DRG 536 ==
LOC: ER 10:29 → ER IP 12:34
PROVIDERS: Internal Medicine; Admitting Provider Student in an Organized Health Care Education/Training Program; Emergency Provider Family Medicine; PCP Family Medicine; Visit Provider Student in an Organized Health Care Education/Training Program
DX: S72.012A Unspecified intracapsular fracture of left femur, initial encounter for closed fracture (principal); N13.8 Other obstructive and reflux uropathy; E87.1 Hypo-osmolality and hyponatremia; W01.0XXA Fall on same level from slipping, tripping and stumbling without subsequent striking against object, initial encounter; I48.91 Unspecified atrial fibrillation; N40.1 Benign prostatic hyperplasia with lower urinary tract symptoms; F17.210 Nicotine dependence, cigarettes, uncomplicated; J44.9 Chronic obstructive pulmonary disease, unspecified; I35.0 Nonrheumatic aortic (valve) stenosis
CPT/HCPCS: 51702; 71045; 73502; 80053; 81001; 83735; 84443; 84484; 85025; 85610; 85730; 87426; 93005; 93306; 96365; 96367; 96372; 96375; 99291; 99292; J1644; J3490; J7040

== ENCOUNTER → 2020-12-11 15:43 | Outpatient (BNVA) | payer MEDICARE, SELFPAY | PROVIDERS: PCP Family Medicine; Visit Provider Nurse Practitioner Family | DX: R82.71 Bacteriuria (principal); N40.1 Benign prostatic hyperplasia with lower urinary tract symptoms; N13.8 Other obstructive and reflux uropathy | CPT/HCPCS: 81003; 87077; 87086; 87184 ==

== ENCOUNTER 2020-12-21 09:08 | Outpatient (CLI) | payer MEDICARE, SELFPAY ==
--- NOTE | 2020-12-21 13:01 | ONC CON_ITS ---
Dr. Caraballo New Patient Note Patient: Elliott Anderson Unit #: [id number]: 1945 Dicatated By: Roger Caraballo M.D.Date of Visit: Dec 21, 2020 Onc MED New Patient/Consult Referring Physician: Juan Antonio Robles Chief Complaint: Lung cancer. 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 On 11/02/2020 he was admitted to the hospital with traumatic left hip fracture. It occurred in association with atrial fibrillation/RVR and severe aortic stenosis. Due to the aortic stenosis, he was transferred to [facility] for further management, where he underwent a valvuloplasty procedure followed by left hip hemiarthroplasty. His preoperative evaluation also included chest CT which showed a 2.5 x 2.7 cm spiculated mass in the right upper lobe with extension into the mediastinum and right hilum. Overall the soft tissue mass measured 6.9 x 3.8 cm. The mass was noted to encase and significantly narrow the right lobar and segmental pulmonary arteries and was also noted to encase the right upper lobe bronchus. There were associated small mediastinal left hilar lymph nodes. An additional spiculated nodule measuring 8 mm was noted in the right apex. Other findings included severe emphysematous changes bilaterally. There was complete collapse of the left lower lung secondary to occlusion of the left lower lobe bronchus thought to be related to mucous plugging. CT abdomen/pelvis showed no obvious metastatic disease and there was also no metastatic disease noted on contrast-enhanced head CT scan. On 11/09/2020 he underwent bronchoscopy/EBUS. There were copious secretions found throughout the tracheobronchial tree which were partially obstructing the airway, and nose were suctioned. There is apparently no endobronchial lesion identified. You underwent FNA biopsy of left and right paratracheal and subcarinal lymph nodes. Cytology on the 4L in the subcarinal lymph nodes were negative, but the 4R FNA biopsy was positive for metastatic non-small cell carcinoma. The PD-L1 expression by IHC was negative at < 1%. He was then transferred to [place] for rehabilitation, and he has since then been able to return home. He is seen now for further management of the lung cancer. He still has very limited activity, though he is able to ambulate short distances with a walker. His ECOG score is 3. His appetite has not been good, though lately it has been getting a little better. He has had a recent weight loss in the range of 15 pounds. He does not have fever or night sweats. He reports some visual blurring/haziness. He has not had sore throat or difficulty swallowing. He has a little bit of cough at night. He does not complain of shortness of breath, and he has not had chest pain or hemoptysis. He has no GI complaints other than some constipation, but that also is improving. He required an indwelling Jones catheter while he was at rehab. He is now voiding adequately, but he has on antibiotic therapy for urinary tract infection. He has some pain in his left hip with ambulation. He has no other joint or bone pain. He does not complain of headache or dizziness, and he has no focal neurologic symptoms. Past Medical History: His medical history includes aortic stenosis, atrial fibrillation, benign prostatic hypertrophy, and chronic obstructive pulmonary disease. Past Surgical History: He underwent valvuloplasty for aortic stenosis on 11/06/2020, left total hip arthroplasty on 11/07/2020, and bronchoscopy/EBUS on 11/09/2020. His other surgical/procedural history includes arthroscopic right knee surgery, bilateral cataract excisions, hernia repair, and left knee surgery. Medications: Apixaban 1 Tablet (of 5 mg) Oral b.i.d., Aspirin 81 1 Tablet (of 81 mg) Tablet, chewable Oral daily, Bactrim DS 1 Tablet (of 800-160 mg) Oral b.i.d. for 3 days, Metoprolol Tartrate 12.5 mg (of 25 mg) Tablet Oral daily, Tamsulosin HCl 1 Capsule (of 0.4 mg) Oral b.i.d. Allergies: No Known Allergies. Social History: Mr. Anderson is . 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 He has history of smoking 1 pack of cigarettes daily for about 50 years. He quit smoking in October 2020. He says that he used to drink a lot, but he cut down significantly about 6 to 8 months ago. He now drinks 1 beer daily. Family History: His father and his sister both with dementia. He does not know anything about his mother. Review Of Symptoms: Constitutional - He still has very limited activity. Is able to ambulate short distances with a walker. His appetite has not been good, but it is getting a little better. He has had recent weight loss of about 15 pounds. He does not have fever or night sweats. ECOG score is 3, Eyes - His vision has been blurry, ENMT - No hearing loss or tinnitus. No sinus congestion/drainage. No mouth sores. No sore throat or difficulty swallowing, Hematologic/Lymphatic - He has easy bruising, but no other bleeding, Respiratory - He has a little bit of cough at night. He says his breathing is fine. No pleuritic pain or hemoptysis, Cardiovascular - No angina pain. No palpitations, Gastrointestinal - No nausea or vomiting. No heartburn or acid reflux. He has been having some constipation. No blood in the stool or black stools, Genitourinary (M) - He was having difficulty voiding and he had Jones catheter placed during rehab. Bladder function now is adequate, but he is on antibiotic for urinary tract infection, Musculoskeletal - He has some left hip pain with ambulation. He has no other joint or bone pain, Integumentary - He has dry skin. He has a decubitus ulceration on the left heel, Neurologic - No headache or dizziness. No numbness or tingling. No other focal neurologic symptoms, Psychiatric - No anxiety or depression. No insomnia. Vital Signs: Performed on Dec 21, 2020 09:50: 0, 0, 21.37, 1.97 sq.m, 73 in, 97 %, 65 /min, 18 /min, 103/57 mm(hg), 97.8 F (LOW), and 162 lbs (HIGH). Physical Examination: Constitutional - He appears generally weak and chronically ill, Eyes - Sclerae nonicteric. Conjunctivae clear, ENMT - No lesions noted in the oral cavity, Neck - No mass or thyromegaly, Hematologic/Lymphatic - No cervical, clavicular, or axillary adenopathy, Respiratory - Lungs sound clear with diminished air movement bilaterally, Cardiovascular - Heart rhythm is regular. There is a II/ systolic murmur. There is no gallop or rub noted, Abdomen - Soft and non-tender. Liver and spleen are not enlarged. There is no abdominal mass or ascites noted and there is no inguinal adenopathy, Back/Spine - No spine or CVA tenderness noted, Extremities - There are venous stasis changes bilaterally. There is slight edema on the left. There is a palpable posterior tibial pulse on the right. I am not able to palpate a pulse in the left foot, but it is warm to touch. He has fairly extensive purpura, Integumentary - His skin is dry and flaky. There is an ulceration on the left heel. There are no suspicious skin lesions noted, Neurologic - No focal neurologic deficits noted. Problem List: 1. Non-small cell carcinoma involving the upper lobe of the right lung, stage at least IIIB (T3, N2, M0). 2. He had CT evidence of left lower lobe atelectasis, presumed to be due to mucous plugging. 3. Aortic stenosis, status post valvuloplasty procedure on 11/06/2020. 4. Traumatic left hip fracture, status post hemiarthroplasty on 11/07/2020. 5. Atrial fibrillation. 6. COPD. 7. Benign prostatic hypertrophy. 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 He underwent bronchoscopy/EBUS on 11/09/2020. The diagnosis was confirmed by FNA biopsy of station 4R lymph node. The tumor was negative for PD-L1 expression, <1%. CT shows relatively large primary malignancy in the right upper lobe/right hilar area. There is additional 8 mm satellite nodule in the right apex, which appears suspicious. The CT findings and pathology results reviewed with the patient and we discussed the clinical implications. He has a non-small cell lung cancer with biopsy-proven mediastinal lymph node involvement. He is advised that his disease is inoperable. In the absence of any metastatic disease, the standard treatment would be radiation and concurrent chemotherapy with potential for subsequent maintenance immunotherapy. Treatment recommendations may change, though, depending on the status of the right apical pulmonary nodule and/or evidence of other metastatic disease. As such, he will be scheduled now for staging PET/CT. I will see him again when those results are available. In the meantime, as he is on full dose anticoagulation with apixaban, he is recommended to stop aspirin. Signed By: Roger Caraballo M.D. <<Signature on File>>
== END 2020-12-21 09:09 | disposition home or self-care (01) ==
PROVIDERS: PCP Family Medicine; Visit Provider Internal Medicine Medical Oncology
DX: C34.11 Malignant neoplasm of upper lobe, right bronchus or lung (principal); J98.11 Atelectasis; I70.0 Atherosclerosis of aorta; Z96.642 Presence of left artificial hip joint; I48.91 Unspecified atrial fibrillation; J44.9 Chronic obstructive pulmonary disease, unspecified; N40.0 Benign prostatic hyperplasia without lower urinary tract symptoms; Z23 Encounter for immunization; Z79.899 Other long term (current) drug therapy
CPT/HCPCS: 90471; 90670; 90686; 99205

== ENCOUNTER 2021-01-17 08:30 | Outpatient (CLI) | payer MEDICARE, SELFPAY | END 2021-01-17 08:31 | disposition home or self-care (01) | LOC: ONCMED 08:33 | PROVIDERS: PCP Family Medicine; Visit Provider Internal Medicine Medical Oncology | DX: C34.11 Malignant neoplasm of upper lobe, right bronchus or lung (principal) | CPT/HCPCS: 36415 ==

== ENCOUNTER 2021-02-01 10:23 | Outpatient (CLI) | payer MEDICARE, SELFPAY ==
--- NOTE | 2021-02-02 08:33 | ONC FU_ITS ---
Dr. Caraballo Patient Follow-Up Note Patient: Elliott Anderson Unit #: [id number]: 1945 Dicatated By: Roger Caraballo M.D.Date of Visit:Feb 01, 2021 Onc Med Follow-up/Prog Note Chief Complaint: Lung cancer. 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 On 11/02/2020 he was admitted to the hospital with traumatic left hip fracture. It occurred in association with atrial fibrillation/RVR and severe aortic stenosis. Due to the aortic stenosis, he was transferred to [facility] for further management, where he underwent a valvuloplasty procedure followed by left hip hemiarthroplasty. His preoperative evaluation also included chest CT which showed a 2.5 x 2.7 cm spiculated mass in the right upper lobe with extension into the mediastinum and right hilum. Overall the soft tissue mass measured 6.9 x 3.8 cm. The mass was noted to encase and significantly narrow the right lobar and segmental pulmonary arteries and was also noted to encase the right upper lobe bronchus. There were associated small mediastinal left hilar lymph nodes. An additional spiculated nodule measuring 8 mm was noted in the right apex. Other findings included severe emphysematous changes bilaterally. There was complete collapse of the left lower lung secondary to occlusion of the left lower lobe bronchus thought to be related to mucous plugging. CT abdomen/pelvis showed no obvious metastatic disease and there was also no metastatic disease noted on contrast-enhanced head CT scan. On 11/09/2020 he underwent bronchoscopy/EBUS. There were copious secretions found throughout the tracheobronchial tree which were partially obstructing the airway, and nose were suctioned. There is apparently no endobronchial lesion identified. You underwent FNA biopsy of left and right paratracheal and subcarinal lymph nodes. Cytology on the 4L in the subcarinal lymph nodes were negative, but the 4R FNA biopsy was positive for metastatic non-small cell carcinoma. The PD-L1 expression by IHC was negative at < 1%. He was then transferred to [place] for rehabilitation, and he subsequently was able to return home. I had seen him initially on 12/21/2020. His further evaluation included a staging PET/CT on 01/01/2021. 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 This included a left parotid mass measuring 1.6 x 1.2 cm with SUV 7.76 and an additional medial nodular density within the left parotid measuring 8.3 x 13.6 mm with SUV 10.02. A 9.3 mm density either within or anterior to the right parotid had SUV 5.61 and there are multiple additional right parotid lesions with SUVs ranging from 3.13-6.24. A level 2 lymph node just behind the right parotid measuring 8.4 mm was FDG avid with SUV 8.07. A large right hilar mass which was noted to invade the mediastinum and encases the right upper lobe bronchus measured 6.7 x 4.0 cm and was FDG avid with SUV 14.09. A left lower lobe superior segment subpleural nodular density measuring 4.2 x 3.6 cm had SUV 12.18. Left bronchial and hilar lymphadenopathy showed increased metabolic activity with SUVs of 11.16 and 5.50. A spiculated nodule in the right apex anteriorly was FDG negative and an additional spiculated nodule in the right upper lobe measuring 8.4 x 10.4 mm was FDG avid with SUV 3.18. Right carinal lymph nodes measuring 1.2 and 1.7 cm were FDG avid with SUV of 13.55 and 10.57. Overall, the findings were consistent with bilateral pulmonary neoplastic lesions and bilateral neoplastic parotid gland lesions and associated right cervical level 2, left bronchial, left hilar, and right subcarinal lymph node involvement. His evaluation also included next generation sequencing by liquid biopsy which showed no actionable mutations. His medical illnesses, in addition to the aortic stenosis and atrial fibrillation, include COPD and benign prostatic hypertrophy. He has a history of smoking 1 pack of cigarettes daily for about 50 years. He quit smoking in October 2020. He is seen for a follow-up visit. He still has limited activity, but he is ambulatory with a walker and he is trying to exercise more. His ECOG score is 2. He has pretty good appetite for breakfast, not much the rest of the day. He has gained weight. He does not have fever or night sweats. He is having difficulty with his vision. He does not have sore throat or difficulty swallowing. He has shortness of breath with activity. He tends to have cough when he first goes to bed. He is not having chest pain or hemoptysis. He has no GI complaints other than constipation, his bowels are moving about every other day. He says his urination is too frequent. He currently is not having any significant joint or bone pain. He does not complain of headache. He does have some lightheadedness and he also has difficulty with balance. He has no numbness/paresthesia or other focal neurologic symptoms. Medications: Apixaban 1 Tablet (of 5 mg) Oral b.i.d., Aspirin 81 1 Tablet (of 81 mg) Tablet, chewable Oral daily, Bactrim DS 1 Tablet (of 800-160 mg) Oral b.i.d. for 3 days, Metoprolol Tartrate 12.5 mg (of 25 mg) Tablet Oral daily, Tamsulosin HCl 1 Capsule (of 0.4 mg) Oral b.i.d. Allergies: No Known Allergies. Vital Signs: Performed on Feb 01, 2021 10:51 Height - 73.00 in Weight - 176.0 lbs (HIGH) BSA - 2.04 sq.m BMI - 23.22 Temperature - 97.0 F (LOW) Pulse - 129 /min (HIGH) Respiration - 18 /min BP - 145/63 mm(hg) (HIGH) O2 Sat - 98 % Pain - 0 Fatigue - 10 Physical Examination: Constitutional - He appears somewhat weak generally, Eyes - Sclerae nonicteric. Conjunctivae clear, ENMT - No lesions noted in the oral cavity, Hematologic/Lymphatic - No cervical, clavicular, or axillary adenopathy, Respiratory - Lungs show coarse breath sounds and some decrease in air movement bilaterally, Cardiovascular - Heart rhythm is irregular. There is a II/ systolic murmur. There is no gallop or rub noted, Abdomen - Soft. Liver and spleen are not enlarged. There is no abdominal mass or ascites noted. There is a large inguinal hernia on the right. There is no inguinal adenopathy noted, Extremities - There are venous stasis changes bilaterally. There is no edema, Neurologic - No focal neurologic deficits noted. Problem List: 1. Non-small cell carcinoma involving the upper lobe of the right lung, by clinical evaluation stage at least NICOLE (T4, N3, M1a). 2. He had CT evidence of left lower lobe atelectasis, initially thought to be due to mucous plugging. 3. Aortic stenosis, status post valvuloplasty procedure on 11/06/2020. 4. Traumatic left hip fracture, status post hemiarthroplasty on 11/07/2020. 5. Atrial fibrillation. 6. COPD. 7. Benign prostatic hypertrophy. 8. Right inguinal hernia. 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 He underwent bronchoscopy/EBUS on 11/09/2020. The diagnosis was confirmed by FNA biopsy of station 4R lymph node. The tumor was negative for PD-L1 expression, <1%. CT showed relatively large primary malignancy in the right upper lobe/right hilar area. Staging PET/CT showed FDG avid right hilar mass measuring 6.7 x 4.0 cm. There was associated invasion of the mediastinum. A 4.2 x 3.6 cm left lower lobe mass was also FDG avid. Other findings included bilateral FDG avid parotid lesions. There appeared to be involved cervical level 2, left bronchial, left hilar, and right subcarinal lymph nodes. As such, his disease appears to be stage at least NICOLE (T4, N3, M1a) and possibly IVB to be aware of the parotid lesions represent metastatic disease or an unrelated malignant process. There were no actionable mutations identified on next generation sequencing by liquid biopsy. The PET/CT findings and pathology were reviewed with the patient and his son, and we discussed the clinical implications. While there is some uncertainty as to the staging of his lung cancer, with bilateral pulmonary masses he is clearly not a candidate for chemoradiation. With a PD-L1 negative tumor and in the absence of an actionable mutation, the recommended treatment would be combined chemotherapy/immunotherapy utilizing carboplatin/paclitaxel for the chemotherapy regimen. I reviewed anticipated side effects with the chemotherapy which may include nausea/vomiting, alopecia, weakness/fatigue, low blood counts, and neuropathy, among others. I also reviewed potential side effects with the immunotherapy which may include enteritis, pneumonitis, endocrinopathies, skin rash, joint pain, and renal or hepatic dysfunction, among others. Given the potential for those side effects, I also discussed the possibility of limiting treatment to palliative radiation to the right hilar mass. Patient indicates that he does want to pursue treatment aggressively, but he tells me now that he is scheduled to have a repeat echocardiogram later this month in preparation for additional surgery for the aortic stenosis. 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 Signed By: Roger Caraballo M.D. <<Signature on File>>
== END 2021-02-01 10:24 | disposition home or self-care (01) ==
LOC: ONCMED 10:27
PROVIDERS: PCP Family Medicine; Visit Provider Internal Medicine Medical Oncology
DX: C34.11 Malignant neoplasm of upper lobe, right bronchus or lung (principal); I48.91 Unspecified atrial fibrillation; J44.9 Chronic obstructive pulmonary disease, unspecified; N40.0 Benign prostatic hyperplasia without lower urinary tract symptoms; I35.0 Nonrheumatic aortic (valve) stenosis; Z87.891 Personal history of nicotine dependence
CPT/HCPCS: 99215

== ENCOUNTER → 2021-02-06 07:53 | Outpatient (BNVA) | payer MEDICARE, SELFPAY | PROVIDERS: PCP Family Medicine; Visit Provider Nurse Practitioner Family | DX: R60.9 Edema, unspecified (principal) | CPT/HCPCS: 80048; 83880 ==

== ENCOUNTER 2021-02-09 09:52 | Outpatient (CLI) | payer MEDICARE, SELFPAY ==
--- NOTE | 2021-02-09 09:55 | USCV_ITS ---
Elliott Anderson Age: 76 Gender: M : 1945 Exam Date: 02/09/2021 10:11 Ordering Phys: RENNY KELLER Technologist: Gabriella Holbrook Exam Location: [facility] [place] Indication: POST WORK ON AO. BP: 120 / 80 HR: 112 Rhythm: Sinus Technical Quality: Technically difficult study MEASUREMENTS (Male / Female) Normal Values 2D ECHO LV Diastolic Diameter PLAX 3.1 cm 4.2 - 5.9 / 3.9 - 5.3 cm LV Systolic Diameter PLAX 1.9 cm IVS Diastolic Thickness 1.0 cm 0.6 - 1.0 / 0.6 - 0.9 cm IVS Systolic Thickness 1.2 cm LVPW Diastolic Thickness 1.1 cm 0.6 - 1.0 / 0.6 - 0.9 cm LVPW Systolic Thickness 1.5 cm LVOT Diameter 2.0 cm LV Ejection Fraction 2D Teich 72.6 % LV Ejection Fraction MOD 2C 63.7 % LV Ejection Fraction 2C AL 64.1 % LA Diameter 3.5 cm Aorta at Sinotubular Diameter 3.3 cm M-MODE Aortic Annulus Diameter 3.3 cm LA Ao Ratio MM 1.2 MV E Point Septal Separation 0.5 cm DOPPLER AV Peak Velocity 343.5 cm/s LVOT Peak Velocity 80.6 cm/s AV Area Cont Eq vti 0.8 cm squared AV Area Cont Eq pk 0.7 cm squared TR Peak Velocity 198.8 cm/s TR Peak Gradient 15.8 mmHg TR Mean Velocity 115.0 cm/s TR Mean Gradient 6.5 mmHg TR Velocity Time Integral 34.0 cm TV Peak E Velocity 75.0 cm/s FINDINGS Left Ventricle Normal left ventricular cavity size. Normal left ventricular systolic function. No regional wall motion abnormalities. Left ventricular ejection fraction is estimated at 60 %. Right Ventricle Normal right ventricular size. RVSP could not be calculated due to incomplete tricuspid regurgitation velocity profile. Right Atrium The right atrium is normal in size. Left Atrium The left atrium is normal in size. Mitral Valve Structurally normal mitral valve without significant stenosis or prolapse. There is no mitral regurgitation. Aortic Valve Severe aortic valve calcification. Moderate to severe aortic valve stenosis, mean gradient 24 mmHg, ERIKA 0.85 cm squared. Mild aortic valve regurgitation. Tricuspid Valve Mild tricuspid valve regurgitation. Pulmonic Valve Structurally normal pulmonic valve without significant stenosis. There is no pulmonic regurgitation. Pericardium Normal pericardium without effusion. Aorta Normal ascending aorta dimension. CONCLUSIONS 1-Normal left ventricular cavity size. Normal left ventricular systolic function. No regional wall motion abnormalities. Left ventricular ejection fraction is estimated at 60 %. 2-Severe aortic valve calcification. Moderate to severe aortic valve stenosis, mean gradient 24 mmHg, ERIKA 0.85 cm squared. Mild aortic valve regurgitation. 3-Mild tricuspid valve regurgitation. 4-There is no pericardial effusion. 5-No significant change since the prior echocardiogram study of 12/02/2020. Ruddy Self MD (Electronically Signed) Final Date: 10 February 2021 15:27 S
== END 2021-02-09 09:53 | disposition home or self-care (01) ==
LOC: US 09:54
PROVIDERS: PCP Family Medicine; Visit Provider Internal Medicine Cardiovascular Disease
DX: I08.2 Rheumatic disorders of both aortic and tricuspid valves (principal)
CPT/HCPCS: 93308; 93325

== ENCOUNTER → 2021-02-12 09:20 | Outpatient (BNVA) | payer MEDICARE, SELFPAY | PROVIDERS: PCP Family Medicine; Visit Provider Urology | DX: R33.9 Retention of urine, unspecified (principal) | CPT/HCPCS: 81003; 87077; 87086; 87184 ==

== ENCOUNTER 2021-02-14 16:32 | Outpatient (CLI) | payer MEDICARE, SELFPAY ==
--- NOTE | 2021-02-14 17:00 | CTR_ITS ---
PROCEDURE INFORMATION: Exam: CTA Chest With Contrast Exam date and time: 02/14/2021 5:00 PM Age: 76 years old Clinical indication: Shortness of breath; Additional info: Lung CA, swelling in both arms TECHNIQUE: Imaging protocol: Computed tomographic angiography of the chest with contrast. 3D rendering (Not supervised by radiologist): MIP and/or 3D reconstructed images were created by the technologist. Total images: 905 Radiation optimization: All CT scans at this facility use at least one of these dose optimization techniques: automated exposure control; mA and/or kV adjustment per patient size (includes targeted exams where dose is matched to clinical indication); or iterative reconstruction. Contrast material: OMNI 350; Contrast volume: 95 ml; Contrast route: INTRAVENOUS (IV); COMPARISON: CTA Chest w Abd/Pel w* 11/03/2020 4:37 PM RADIATION DOSE METRICS: Total DLP (mGy-cm): 634.78 FINDINGS: Pulmonary arteries: No visible evidence of pulmonary embolism/pulmonary arterial thrombus. Aorta: The thoracic aorta is nonaneurysmal. No visible intimal flap or dissection. Moderately advanced arterial sclerotic disease. Tortuous thoracic aorta often seen in hypertensive cardiovascular disease. Lungs: Marked progression of disease of lung carcinoma. Right upper lobe, right suprahilar, and right middle mediastinal tumor mass has increased substantially in volume resulting in complete occlusion of the right upper lobe bronchus and collapse of the right upper lobe. Three new large metastatic neoplasm masses left lower lobe superior segment largest measuring approximately 5.5 cm x 4.3 cm and a 2nd inferiorly measuring approximately 4.7 cm x 3.1 cm and a 3rd measuring approximately 3.3 cm in diameter. Small hematogenous metastasis right lung identified. Advanced centrilobular emphysema. Pleural spaces: Moderate volume right pleural effusion presumed malignant. Heart: Microcardia. Left ventricular hypertrophy. No visible pericardial effusion. Advanced 3 vessel coronary artery disease. 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 Extensive venous collateralization. Lymph nodes: Evidence of lymphangitic metastasis. Mediastinal and bilateral hilar tumor lymphadenopathy. Bilateral marginal axillary lymphadenopathy. Bones/joints: No visible acute osseous abnormality. No visible osteolytic or osteoblastic destructive process. Degenerative disease of the spine with diffuse idiopathic skeletal hyperostosis. Soft tissues: Anasarca. CT/CT angio chest PE protcl [id number] IMPRESSION: 1. No visible evidence of pulmonary embolism/pulmonary arterial thrombus. 2. Superior vena cava syndrome as detailed in text above. 3. Marked progression of lung carcinoma as detailed in text above. 4. Evidence of lymphangitis metastasis with mediastinal and bilateral hilar tumor lymphadenopathy. 5. Prominent bilateral axillary lymph nodes. 6. Anasarca. 7. Other nonurgent, nonemergent, chronic, and age related findings as detailed in text above.
[2021-02-14] MEDS: iohexol 350 mg/mL 100 mL Btl IV (18:01)
== END 2021-02-14 16:33 | disposition home or self-care (01) ==
LOC: RAD 16:34
PROVIDERS: PCP Family Medicine; Visit Provider Internal Medicine Medical Oncology
DX: C34.11 Malignant neoplasm of upper lobe, right bronchus or lung (principal); M79.89 Other specified soft tissue disorders; R06.02 Shortness of breath; R60.1 Generalized edema
CPT/HCPCS: 71275

== ENCOUNTER 2021-02-22 06:19 | Outpatient (RCR) | payer MEDICARE, SELFPAY ==
[2021-02-14 14:12] LABS: Basophils # 0.1 10^3/uL (0.0-0.1); Basophils % 0.9 %; Eosinophils # 0.3 10^3/uL (0.0-0.8); Eosinophils % 4.9 %; Hematocrit 30.2 % (42.0-52.0); Hemoglobin 9.6 g/dL (11.7-16.6); Lymphocytes # 1.3 10^3/uL (0.8-4.8); Lymphocytes % 19.8 %; Mean Corpuscular HGB Conc 31.8 g/dL (30.0-36.0); Mean Corpuscular Volume 85.1 fl (80-94); Mean Platelet Volume 8.8 fL (7.4-10.4); Monocytes # 0.7 10^3/uL (0.2-0.9); Monocytes % 10.7 %; Neutrophils # 4.26 10^3/uL (1.8-7.7); Neutrophils % 63.4 %; Nucleated Red Blood Cells % 0 %; Platelet Count 298 10^3/cmm (130-400); Red Blood Count 3.55 10^6/uL (4.1-5.3); Red Cell Distribution Width 14.8 % (12.1-15.1); White Blood Count 6.7 10^3/uL (4.0-10.0)
[2021-02-14 14:33] LABS: Alanine Aminotransferase 12 U/L (0-41); Albumin Level 3.8 g/dL (3.5-5.2); Alkaline Phosphatase 108 IU/L (40-130); Anion Gap 19.2 (5-19); Aspartate Amino Transferase 16 U/L (0-40); Blood Urea Nitrogen 7 mg/dL (8-23); Calcium 8.5 mg/dL (8.5-10.5); Carbon Dioxide 21 mmol/L (22-29); Chloride 94 mmol/L (98-107); Globulin 3.5 g/dL (1.3-4.6); Glucose 88 mg/dL (65-115); NT Pro B Type Natriuretic Pept 568 pg/mL (0-450); Osmolality Calculated 267 mOsm/kg (285-295); Potassium 4.2 mmol/L (3.5-5.1); Sodium 130 mmol/L (136-145); Total Bilirubin 0.4 mg/dL (0.15-1.2); Total Protein 7.3 g/dL (6.6-8.7)
[2021-02-14 15:41] LABS: Iron 33 ug/dL (59-158); Percent Saturation 12.3 % (20-50); Total Iron Binding Capacity 268 mcg/dl; Unsaturated Iron Binding 235 ug/dL (112-347)
--- NOTE | 2021-02-14 17:27 | ONC FU_ITS ---
Dr. Caraballo Patient Follow-Up Note Patient: Elliott Anderson Unit #: [id number]: 1945 Dicatated By: Roger Caraballo M.D.Date of Visit:Feb 14, 2021 Onc Med Follow-up/Prog Note Chief Complaint: Lung cancer. 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 On 11/02/2020 he was admitted to the hospital with traumatic left hip fracture. It occurred in association with atrial fibrillation/RVR and severe aortic stenosis. Due to the aortic stenosis, he was transferred to [facility] for further management, where he underwent a valvuloplasty procedure followed by left hip hemiarthroplasty. His preoperative evaluation also included chest CT which showed a 2.5 x 2.7 cm spiculated mass in the right upper lobe with extension into the mediastinum and right hilum. Overall the soft tissue mass measured 6.9 x 3.8 cm. The mass was noted to encase and significantly narrow the right lobar and segmental pulmonary arteries and was also noted to encase the right upper lobe bronchus. There were associated small mediastinal left hilar lymph nodes. An additional spiculated nodule measuring 8 mm was noted in the right apex. Other findings included severe emphysematous changes bilaterally. There was complete collapse of the left lower lung secondary to occlusion of the left lower lobe bronchus thought to be related to mucous plugging. CT abdomen/pelvis showed no obvious metastatic disease and there was also no metastatic disease noted on contrast-enhanced head CT scan. On 11/09/2020 he underwent bronchoscopy/EBUS. There were copious secretions found throughout the tracheobronchial tree which were partially obstructing the airway, and nose were suctioned. There is apparently no endobronchial lesion identified. You underwent FNA biopsy of left and right paratracheal and subcarinal lymph nodes. Cytology on the 4L in the subcarinal lymph nodes were negative, but the 4R FNA biopsy was positive for metastatic non-small cell carcinoma. The PD-L1 expression by IHC was negative at < 1%. He was then transferred to [place] for rehabilitation, and he subsequently was able to return home. I had seen him initially on 12/21/2020. His further evaluation included a staging PET/CT on 01/01/2021. 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 This included a left parotid mass measuring 1.6 x 1.2 cm with SUV 7.76 and an additional medial nodular density within the left parotid measuring 8.3 x 13.6 mm with SUV 10.02. A 9.3 mm density either within or anterior to the right parotid had SUV 5.61 and there are multiple additional right parotid lesions with SUVs ranging from 3.13-6.24. A level 2 lymph node just behind the right parotid measuring 8.4 mm was FDG avid with SUV 8.07. A large right hilar mass which was noted to invade the mediastinum and encases the right upper lobe bronchus measured 6.7 x 4.0 cm and was FDG avid with SUV 14.09. A left lower lobe superior segment subpleural nodular density measuring 4.2 x 3.6 cm had SUV 12.18. Left bronchial and hilar lymphadenopathy showed increased metabolic activity with SUVs of 11.16 and 5.50. A spiculated nodule in the right apex anteriorly was FDG negative and an additional spiculated nodule in the right upper lobe measuring 8.4 x 10.4 mm was FDG avid with SUV 3.18. Right carinal lymph nodes measuring 1.2 and 1.7 cm were FDG avid with SUV of 13.55 and 10.57. Overall, the findings were consistent with bilateral pulmonary neoplastic lesions and bilateral neoplastic parotid gland lesions and associated right cervical level 2, left bronchial, left hilar, and right subcarinal lymph node involvement. His evaluation also included next generation sequencing by liquid biopsy which showed no actionable mutations. His medical illnesses, in addition to the aortic stenosis and atrial fibrillation, include COPD and benign prostatic hypertrophy. He has a history of smoking 1 pack of cigarettes daily for about 50 years. He quit smoking in October 2020. INTERIM HISTORY: I had seen him for a follow-up visit on 02/01/2021. At that point he was beginning to show some improvement in his performance status. Treatment for the lung cancer was deferred pending repeat echocardiogram and further recommendations from his cardiac surgeon. The echocardiogram, on 02/09/2021 showed normal left ventricular systolic function with ejection fraction estimated at 60%. There was severe aortic valve calcification and moderate to severe aortic valve stenosis with a mean gradient of 24 mmHg and ERIKA 0.85 cm???. There was mild aortic valve regurgitation. There was no pericardial effusion. He is seen now for an unplanned visit, as he has now developed swelling in both arms. He has also been feeling lightheaded. He is able to ambulate short distances with a walker. His ECOG score is 2. His appetite is not very good. He has not had fever or night sweats. He has not had sore throat or difficulty swallowing. He says his breathing is terrible at times, but at other times it is okay. He does get short of breath with activity. He does not have much cough. He has not had chest pain or hemoptysis. He has no GI complaints. During his hospitalization and rehab he had catheter associated urinary tract infection twice, and since he has been home he has continued to have problems with bladder function. He is seeing Dr. Bear. He is not having any significant joint or bone pain. He has no focal neurologic symptoms. Medications: Apixaban 1 Tablet (of 5 mg) Oral b.i.d., Aspirin 81 1 Tablet (of 81 mg) Tablet, chewable Oral daily, Bactrim DS 1 Tablet (of 800-160 mg) Oral b.i.d. for 3 days, Metoprolol Tartrate 12.5 mg (of 25 mg) Tablet Oral daily, Tamsulosin HCl 1 Capsule (of 0.4 mg) Oral b.i.d. Allergies: No Known Allergies. Vital Signs: Performed on Feb 14, 2021 15:35 Height - 73.00 in Weight - 185.8 lbs (HIGH) BSA - 2.09 sq.m BMI - 24.51 Temperature - 97.5 F (LOW) Pulse - 81 /min Respiration - 18 /min BP - 144/67 mm(hg) (HIGH) O2 Sat - 97 % Pain - 0 Fatigue - 10 Physical Examination: Constitutional - He appears generally weak, Eyes - Sclerae nonicteric. Conjunctivae clear, ENMT - No lesions noted in the oral cavity, Neck - There is no swelling noted in the neck or face. There is no jugular venous distention, Hematologic/Lymphatic - No cervical, clavicular, or axillary adenopathy, Respiratory - Lungs show coarse breath sounds bilaterally. There is some decrease in air movement which is worse on the right, Cardiovascular - Heart rhythm is regular. There is a II/ systolic murmur. There is no gallop or rub noted, Abdomen - Soft. Liver and spleen are not enlarged. There is no abdominal mass or ascites noted. There is a large inguinal hernia on the right. There is no inguinal adenopathy noted, Extremities - He has developed swelling of both arms extending down to the dorsum of the hands. There is mild lower extremity edema, Neurologic - No focal neurologic deficits noted. Lab/Imaging: Test performed on Feb 14, 2021 13:50 NT proBNP 568 pg/mL Iron 33 mcg/dL Sodium 130 mmol/L Iron Binding Capacity (TIBC) 268 mcg/dl Potassium 4.2 mmol/L % Iron Saturation 12.3 % Chloride 94 mmol/L CO2 21 mmol/L UIBC 235 mcg/dL Anion Gap 19.2 BUN 7 mg/dL Creatinine 0.4 mg/dL Cr Clearance (Est) 190.21 mL/min Glucose 88 mg/dL Osmolality - Calculated 267 mOsm/kg Calcium 8.5 mg/dL Protein, Total 7.3 g/dL Albumin 3.8 g/dL Globulin 3.5 g/dL Bilirubin, Total 0.4 mg/dL ALT (SGPT) 12 U/L AST (SGOT) 16 U/L Alkaline Phosphatase 108 IU/L WBC 6.7 10 3/uL RBC 3.55 10 6/uL HGB 9.6 g/dL HCT 30.2 % MCV 85.1 fl MCH 27.0 pg MCHC 31.8 g/dL RDW 14.8 % Platelet Count 298 10 3/cmm MPV 8.8 fL Neutrophils 4.26 10 3/uL Lymphocytes 1.3 10 3/uL Monocytes 0.7 10 3/uL Eosinophils 0.3 10 3/uL Basophils 0.1 10 3/uL Neutrophil % 63.4 % Lymphocyte % 19.8 % Monocyte % 10.7 % Eosinophil % 4.9 % Basophils % 0.9 % NRBC % 0 % Problem List: 1. Non-small cell carcinoma involving the upper lobe of the right lung, by clinical evaluation stage at least NICOLE (T4, N3, M1a). 2. He had CT evidence of left lower lobe atelectasis, initially thought to be due to mucous plugging. 3. Aortic stenosis, status post valvuloplasty procedure on 11/06/2020. 4. Traumatic left hip fracture, status post hemiarthroplasty on 11/07/2020. 5. Atrial fibrillation. 6. COPD. 7. Benign prostatic hypertrophy. 8. Right inguinal hernia. Problems Addressed with this Encounter and Plan: 1. 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 He underwent bronchoscopy/EBUS on 11/09/2020. The diagnosis was confirmed by FNA biopsy of station 4R lymph node. The tumor was negative for PD-L1 expression, <1%. CT showed relatively large primary malignancy in the right upper lobe/right hilar area. Staging PET/CT showed FDG avid right hilar mass measuring 6.7 x 4.0 cm. There was associated invasion of the mediastinum. A 4.2 x 3.6 cm left lower lobe mass was also FDG avid. Other findings included bilateral FDG avid parotid lesions. There appeared to be involved cervical level 2, left bronchial, left hilar, and right subcarinal lymph nodes. As such, his disease appears to be stage at least NICOLE (T4, N3, M1a) and possibly IVB to be aware of the parotid lesions represent metastatic disease or an unrelated malignant process. There were no actionable mutations identified on next generation sequencing by liquid biopsy. The PET/CT findings and pathology were reviewed with the patient and his son, and we discussed the clinical implications. He was advised that he would not be a candidate for chemoradiation, and that any treatment would be palliative. He indicated, though, that he did want to pursue treatment aggressively. We discussed the fact that with a PD-L1 negative tumor and with no actionable mutations identified, the best option would be combined chemotherapy/immunotherapy utilizing carboplatin/paclitaxel for the chemotherapy regimen. However, his treatment initially was deferred pending repeat echocardiogram and further recommendations from his cardiovascular surgeon. The echocardiogram showed moderate to severe aortic stenosis but with normal left ventricular systolic function. Following discussion with the cardiovascular surgeon, the plan was to proceed with treatment for the lung cancer. With evidence of significant response, he would then potentially be eligible for aortic valve replacement. In the meantime, he has now developed significant swelling in both arms. Given the location of his tumor, the findings are highly suspicious for developing superior vena cava obstruction. As such, he is being evaluated today with a CT angiogram of the chest. If it does confirm vena cava obstruction, he will be referred to Dr. Franklin on an urgent basis for palliative radiation prior to beginning any systemic therapy. 2. He has moderately severe anemia with low transferrin saturation, consistent with iron deficiency. He will initially start on oral iron supplementation. If he is not showing response or not able to tolerate the oral iron, he will be given parenteral iron replacement. Signed By: Roger Caraballo M.D. <<Signature on File>>
--- NOTE | 2021-02-15 | CT_ITS ---
Radiation Therapy Planning CT images; total exam DLP: 572.71 mGy-cm MTDD
--- NOTE | 2021-02-15 10:54 | N.ONRAD NP_ITS ---
Radiation Oncology Consultation Patient Name: Elliott Anderson Date of : 1945 Date of Service: 02/15/2021 Attending Physician: Gurwinder Franklin M.D. Elliott Anderson was seen for urgent consultation this morning at the request of Roger Caraballo M.D. for consideration of palliative thoracic radiotherapy. In October, he was transported by EMS to be evaluated at the [facility] Emergency Department after he sustained a fall at home. Upon arrival, an ECG identified atrial fibrillation with rapid ventricular rate. A left hip radiograph identified a transverse impacted fracture femoral neck with a varus deformity. Chest x-ray revealed pulmonary vascular congestion suggesting heart failure. An echocardiogram diagnosed severe aortic stenosis with an aortic valve area of 0.73 cm??? and a mean gradient of 41 mmHg. He was transferred to [facility] in [place], [place] for management of the aortic valve stenosis. A thoracoabdominopelvic CT scan according to TAVR protocol demonstrated a 2.5 cm x 2.7 cm spiculated mass within the right upper lobe of the lung contiguous with the right cristian and mediastinum. The mass encases the right upper lobe bronchus resulting in moderate narrowing. Mediastinal and left hilar lymphadenopathy was described. A cardiac catheterization with balloon aortic valvuloplasty and left hip hemiarthroplasty were performed on November 06 ??? 2020. A bronchoscopy with EBUS guided biopsy was completed on November 09, 2020. The biopsy from lymph node station 4R was positive for metastatic non-small cell carcinoma. Immunostains positive for p40 and negative for TTF-1???1 and consistent with squamous cell carcinoma. The tumor???s PD???L1 TPS was less than 1% and there was no ALK gene rearrangement/deletion nor ROS1 gene rearrangement. A PET CT ordered on January 01, 2021 identified a 6.7 cm x 4 cm right hilar mass (SUV 14.1), a left lower lobe subpleural nodule measuring 4.2 cm x 3.6 cm (SUV 12.2), left hilar adenopathy (SUV 11.2), and bilateral parotid masses with FDG activity. On February 14, 2021, he requested an appointment with his medical oncologist for bilateral upper extremity edema. Physical exam reported edema bilateral extending to the dorsum of the hands. No jugulo-venous distention. A CT angiogram (independently reviewed in synapse) confirmed disease progression of the right upper lobe mass resulting in complete occlusion of the superior vena cava, and right upper lobe bronchus with collapse of the right upper lobe lung. Also described were left lower lobe masses measuring 5.5 cm x 4.3 cm, 7 cm x 3.1 cm, and 3.3 cm. The patient was evaluated for emergent palliative thoracic radiotherapy in the setting of superior vena cava syndrome. Following a discussion concerning Mr. Anderson??? symptoms, an attempt at palliative radiotherapy is warranted. I would recommend a two week course of hypo-fractionated radiotherapy focusing upon the previously described right upper lobe and hilar mass. A computed tomographic radiotherapy planning scan will be performed to identify the gross tumor volume. The potential toxicities of thoracic radiotherapy were reviewed. The patient has verbalized understanding would like to proceed as recommended. The patient's medical treatment plan was discussed with Ree Mccormack M.D. Signed by: Dr. Gurwinder Franklin 02/15/2021 10:52:25 AM
--- NOTE | 2021-02-19 12:57 | ONCRAD TMN_ITS ---
Radiation Oncology Weekly Treatment Management Patient: Justin Tejada MR#: [id number] : 1945> Attending Physician: Dr. Gabe Christie Date of Service: 02/19/2021 Referring Physician(s) : Roger Caraballo M.D. Diagnosis: C34.11 - Malignant neoplasm of upper lobe, right bronchus or lung, Diagnosed 02/01/2021 (Active) Stage NICOLE, T4, N3, M1a Radiotherapy to date: Course: SVC Syn 2020, Treatment Site: SVC Syndrome, Ref. ID: [id number], Energy: 15X, Dose/Fx (cGy): 300, #Fx: 3 / 10, Dose Correction (cGy): 0, Total Dose (cGy): 900, Start Date: 02/15/2021, Elapsed Days: 4 Reason for visit: The patient is being seen today as part of their regularly scheduled weekly on treatment visits to assess for acute toxicities from radiotherapy. Mr. Anderson was seen in the treatment room prior to his third treatment because of some serous drainage and slight bleeding from the area of severe lymphedema in his right arm. There was no evidence of infection in the area of drainage was wrapped. His treatment occurred routinely and he was seen in nursing. Although the treating therapist impression is that he has improved, the patient is concerned about lightheadedness with standing and feeling poorly in general. He does not have any shortness of breath, and that certainly represents improvement. No troublesome cough or hemoptysis. Review of Systems: See above for symptoms related to SVC syndrome. He does state that he was hospitalized in [place] for a protracted period of time and had a catheter placed in his bladder. He has continued to have some issues with voiding and is under the care of Dr. Bear. He says that Dr. Bear has checked a specimen to evaluate for infection. Results are pending. He is concerned that his urine volume has diminished. My impression is that the diminished urination has occurred very recently during the time he has become symptomatic from SVC syndrome and developed lymphedema. Vital Signs: Performed on 02/19/2021 11:42 AM BMI - 24.514 kg/m2 (high), Height - 73 in, Weight - 185.8 lbs, Temperature - 97.2 f, Pulse - 82 /min, Respiration - 18 /min, O2 Sat - 95 % (low), Pain - 0, Fatigue - 0 and BP - 128/ 58 mm(hg)(/low). Physical Exam: Alert, oriented, in no respiratory distress. He is anxious about the symptoms related to SVC syndrome. He readily engages in conversation and does not develop any difficulty breathing with that. The veins in his neck become distended when he is in the supine position. They are barely noticeable when he is erect. There are distended veins on both the anterior and posterior chest antonio. On auscultation of the lungs he has harsh rhonchi bilaterally. No rales or wheezes noted. Heart rhythm regular. He has a very harsh systolic murmur. Imaging: Radiation therapy imaging related to accurate target localization (i.e. KV, MV and CBCT) was reviewed. Appropriate changes, if any, were made to ensure treatment accuracy. Plan: We discussed the anticipated improvement that should occur as the cancer shrinks and there is less pressure on the superior vena cava. He had no questions about the treatment process itself. No change in treatment plan. Signed by: Dr. Gabe Christie 02/19/2021 12:56:19 PM
--- NOTE | 2021-02-22 12:42 | ONCRAD TMN_ITS ---
Radiation Oncology Weekly Treatment Management Patient: Justin Tejada MR#: [id number] : 1945> Attending Physician: Dr. Gabe Christie Date of Service: 02/22/2021 Referring Physician(s) : Roger Caraballo M.D. Diagnosis: C34.11 - Malignant neoplasm of upper lobe, right bronchus or lung, Diagnosed 02/01/2021 (Active) Stage NICOLE, T4, N3, M1a Radiotherapy to date: Course: SVC Syn 2020, Treatment Site: SVC Syndrome, Ref. ID: [id number], Energy: 15X, Dose/Fx (cGy): 300, #Fx: 6 / 10, Dose Correction (cGy): 0, Total Dose (cGy): 1,800, Start Date: 02/15/2021, Elapsed Days: 7 Reason for visit: Mr. Anderson was seen today because he seemed to be having more difficulty breathing in the supine position on the treatment unit. His exam revealed that he was afebrile. His lung exam revealed slightly more dullness to percussion over the right lower lung. He had harsh rhonchi over the right upper lobe area. The left lung was clear except for mild rhonchi. Pulse oximetry in the supine position on the treatment table was 70% on room air. In the sitting position his pulse ox was 80 to 81% on room air. He was placed on 6 L/min O2 per nasal cannula. On this level of O2, he was comfortable in the supine position and was able to go through with his treatment. In the sitting position after the treatment, his pulse ox was 90%. The offline review images taken today were reviewed. The tumor volume appears unchanged. There is slightly more pleural fluid fluid noted in the right hemithorax. The right mainstem bronchus and bronchus intermedius are both are open but appear slightly narrowed compared to his simulation images. In discussing this issue with the patient, he denies noticing any change at all in his breathing at home. He does not complain of fever, chills, or purulent sputum production. Review of Systems: No change in any symptoms. Vital Signs: Temp 98.0 F Physical Exam: Alert, oriented, no acute distress. Distention of neck veins and veins on the chest unchanged. No lymphadenopathy or masses in the neck. Increased dullness to percussion over the right lower lobe. Harsh rhonchi over the right upper lobe. Left lung clear except for mild rhonchi. Imaging: Radiation therapy imaging related to accurate target localization (i.e. KV, MV and CBCT) was reviewed. Appropriate changes, if any, were made to ensure treatment accuracy. Plan: Based on his pulse oximetry values, Mr. Anderson will be placed on home O2. We will start at 2 L/min continuously. He may increase the oxygen on his own to 2-1/2 to 3 L/min. If he has respiratory difficulty at 3 L/min, he should come to the emergency room for evaluation. He does have slightly more pleural fluid on the right and may need a thoracentesis. He is grandson lives with him and the patient said there would be no problem in terms of being transported to the emergency room if needed. Signed by: Dr. Gabe Christie 02/22/2021 12:40:52 PM
[2021-02-22] MEDS: sodium chloride 0.9% (100 ml) 100 ML 75 ML (13:00)
[2021-02-22] MEDS: ipratropium-albuterol 3 mL Neb INHALATION (13:05)
== END 2021-02-23 23:59 | disposition home or self-care (01) ==
LOC: ONCMED 06:19
PROVIDERS: Internal Medicine Medical Oncology; PCP Family Medicine; Visit Provider Specialist
DX: Z51.0 Encounter for antineoplastic radiation therapy (principal); C34.11 Malignant neoplasm of upper lobe, right bronchus or lung; S72.092A Other fracture of head and neck of left femur, initial encounter for closed fracture; M21.152 Varus deformity, not elsewhere classified, left hip; I35.0 Nonrheumatic aortic (valve) stenosis; Z79.899 Other long term (current) drug therapy; M79.89 Other specified soft tissue disorders; R06.02 Shortness of breath; R60.1 Generalized edema
CPT/HCPCS: 36415; 71275; 77290; 77295; 77300; 77334; 77336; 77387; 77412; 80053; 83540; 83550; 83880; 85025; 96374; 99205; 99214; J2930; Q9967

== ENCOUNTER 2021-02-28 10:29 | Outpatient (RCR) | payer MEDICARE, SELFPAY ==
--- NOTE | 2021-02-26 12:54 | ONCRAD TMN_ITS ---
Radiation Oncology Treatment Management Note Patient Name: Elliott Anderson Date of : 1945 Date of Service: 02/26/2021 Attending Physician: Gurwinder Franklin M.D. 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 The M1a designation corresponds to separate nodules in the contralateral lung. He was transported by EMS to be evaluated at the [facility] Emergency Department after he sustained a fall at home. Upon arrival, an ECG identified atrial fibrillation with rapid ventricular rate. A left hip radiograph identified a transverse impacted fracture femoral neck with a varus deformity. An echocardiogram diagnosed severe aortic stenosis with an aortic valve area of 0.73 cm??? and a mean gradient of 41 mmHg. He was transferred to [facility] in [place], [place] for management of the aortic valve stenosis. A thoracoabdominopelvic CT scan according to TAVR protocol demonstrated a 2.5 cm x 2.7 cm spiculated mass within the right upper lobe of the lung contiguous with the right cristian and mediastinum. The mass encases the right upper lobe bronchus resulting in moderate narrowing. Mediastinal and left hilar lymphadenopathy was described. A cardiac catheterization with balloon aortic valvuloplasty and left hip hemiarthroplasty were performed on November 06 ??? 2020. A bronchoscopy with EBUS guided biopsy was completed on November 09, 2020. The biopsy from lymph node station 4R was positive for metastatic non-small cell carcinoma. Immunostains positive for p40 and negative for TTF-1???1. The tumor???s PD???L1 TPS was less than 1% and there was no ALK gene rearrangement/deletion nor ROS1 gene rearrangement. A PET CT ordered on January 01, 2021 identified a 6.7 cm x 4 cm right hilar mass (SUV 14.1), a left lower lobe subpleural nodule measuring 4.2 cm x 3.6 cm (SUV 12.2), left hilar adenopathy (SUV 11.2), and bilateral parotid masses with FDG activity. On February 14, 2021, he requested an appointment with his medical oncologist for bilateral upper extremity edema. Physical exam reported edema bilateral extending to the dorsum of the hands. No jugulo-venous distention. 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 Also described were left lower lobe masses measuring 5.5 cm x 4.3 cm, 7 cm x 3.1 cm, and 3.3 cm. The patient has received 21 Gy of a prescribed 30 Magallanes to the right upper-lobe lung mass with a 3-dimensional conformal radiotherapy plan utilizing wedge pair treatment talavera. Upon review of systems, he denied On physical examination, the patient weighed 186 lbs. His temperature was 98 ???F and the blood pressure was 129/73 mmHg. His pulse was 77 bpm and his respiratory rate was 20. No erythema was present within the skin. Continue palliative radiotherapy as prescribed. Signed by: Dr. Gurwinder Franklin 02/26/2021 12:53:34 PM
--- NOTE | 2021-03-01 08:16 | N.ONRD TS_ITS ---
Radiation OncologyTreatment Summary Patient Name: Elliott Anderson Date of : 1945 Date of Service: 03/01/2021 Attending Physician: Gurwinder Franklin M.D. Elliott Anderson has completed palliative radiation therapy for the management of a superior vena cava syndrome. 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 The M1a designation corresponds to separate nodules in the contralateral lung. He was transported by EMS to be evaluated at the [facility] Emergency Department after he sustained a fall at home. Upon arrival, an ECG identified atrial fibrillation with rapid ventricular rate. A left hip radiograph identified a transverse impacted fracture femoral neck with a varus deformity. An echocardiogram diagnosed severe aortic stenosis with an aortic valve area of 0.73 cm??? and a mean gradient of 41 mmHg. He was transferred to [facility] in [place], [place] for management of the aortic valve stenosis. A thoracoabdominopelvic CT scan according to TAVR protocol demonstrated a 2.5 cm x 2.7 cm spiculated mass within the right upper lobe of the lung contiguous with the right cristian and mediastinum. The mass encases the right upper lobe bronchus resulting in moderate narrowing. Mediastinal and left hilar lymphadenopathy was described. A cardiac catheterization with balloon aortic valvuloplasty and left hip hemiarthroplasty were performed on November 06 ??? 2020. A bronchoscopy with EBUS guided biopsy was completed on November 09, 2020. The biopsy from lymph node station 4R was positive for metastatic non-small cell carcinoma. Immunostains positive for p40 and negative for TTF-1???1. The tumor???s PD???L1 TPS was less than 1% and there was no ALK gene rearrangement/deletion nor ROS1 gene rearrangement. A PET CT ordered on January 01, 2021 identified a 6.7 cm x 4 cm right hilar mass (SUV 14.1), a left lower lobe subpleural nodule measuring 4.2 cm x 3.6 cm (SUV 12.2), left hilar adenopathy (SUV 11.2), and bilateral parotid masses with FDG activity. On February 14, 2021, he requested an appointment with his medical oncologist for bilateral upper extremity edema. Physical exam reported edema bilateral extending to the dorsum of the hands. No jugulo-venous distention. 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 Also described were left lower lobe masses measuring 5.5 cm x 4.3 cm, 7 cm x 3.1 cm, and 3.3 cm. Daily radiotherapy was administered between the dates of February 15, 2021 through February 28, 2021. A prescribed dose of 27 Gy was delivered in 9 fractions encompassing 14 elapsed days. The final treatment was deferred on account of inclement weather. The right upper-lobe mass was treated utilizing a 3-dimensional conformal radiotherapy plan with a LIBYAN/PEARCE wedge pair field design. The LIBYAN/PEARCE wedge pair talavera were designed with a gantry angles of 45??? and 315??? and an enhanced dynamic wedge of 45???. The LIBYAN field measured 7.5 cm x 7.5 cm within the X-direction and 7 cm x 7 cm within the Y-direction. The measured SSD was 88.4 cm. The field allocated 237 monitor units. The PEARCE field measured 7.5 cm x 7.5 cm within the X-direction and 7 cm x 7 cm within the Y-direction. The SSD measured 88.4 cm. The port apportioned 228 monitor units. All treatments were performed with the Mixpanel linear accelerator and an isocentric technique. The dose was calculated by Anisotropic Analytic Algorithm. A photon energy of 15 MV was prescribed with the plan normalized to deliver 100% of the prescription dose to 100% of the planning target volume. Signed by: Dr. Gurwinder Franklin 03/01/2021 8:15:27 AM
== END 2021-03-09 10:15 | disposition home or self-care (01) ==
LOC: ONCMED 10:29
PROVIDERS: PCP Family Medicine; Visit Provider Radiology Radiation Oncology
DX: Z51.0 Encounter for antineoplastic radiation therapy (principal); C34.11 Malignant neoplasm of upper lobe, right bronchus or lung; D50.9 Iron deficiency anemia, unspecified; Z79.899 Other long term (current) drug therapy
CPT/HCPCS: 77014; 77387; 77412; 99214

== ENCOUNTER 2021-03-09 10:30 | Day surgery (SDC) | payer MEDICARE, SELFPAY ==
[2021-03-05 16:02] VITALS: BMI 23.7
--- NOTE | 2021-03-09 10:57 | US_ITS ---
WS: [id number] ULTRASOUND-GUIDED THORACENTESIS CLINICAL INFORMATION: malignant neoplasm rtt upper lobe lung COMPARISON: None. PROCEDURE: Informed consent: The risks, benefits, and alternatives of the procedure were discussed with the dain ent. Verbal and written consent was obtained. Timeout: A timeout was performed to confirm the correct patient, procedure, and site. Site: Right Preparation: A suitable skin site was identified. The patient was prepped and draped in usual sterile fashion. Lidocaine 1% was used for local anesthesia. Catheter: 4 Danish One-Step catheter. Fluid Volume: 1200 ml Color: Clear yellow Discarded safely. Complications: None. US/ thoracentesis [id number] IMPRESSION: 1. Uncomplicated ultrasound-guided thoracentesis. 2. Portable radiograph is pending.
[2021-03-09 11:13] VITALS: BP 112/72; PULSE 110; RESP 18; TEMP 36.2; O2SAT 98
[2021-03-09 11:28] LABS: INR 1.06 (0.8-1.2)
--- NOTE | 2021-03-09 12:25 | XR_ITS ---
WS: [id number] XR chest 1V portable [id number] REASON FOR EXAM: POST THORACENTESIS FINDINGS: Large right hilar and mediastinal mass with significant atelectasis of the right upper lobe. Residual right pleural fluid postthoracentesis. No right pneumothorax. Reticular central/hilar lung opacities and enlargement/and/or overlying mass in the left hilum. XR/XR chest 1V portable [id number] IMPRESSION: No recent imaging to evaluate the prethoracentesis right pleural fluid volume. There is some residual pleural fluid. There is no pneumothorax. There is neoplasm in both hemithoraces.
[2021-03-09 12:26] VITALS: BP 115/82; PULSE 109; RESP 18; O2SAT 100
== END 2021-03-09 13:19 | disposition home or self-care (01) ==
LOC: GILAB 10:33
PROVIDERS: PCP Family Medicine; Visit Provider Radiology Neuroradiology
PROC: (CPT 32554; principal; 2021-03-09 12:00)
DX: C34.11 Malignant neoplasm of upper lobe, right bronchus or lung (principal)
CPT/HCPCS: 32555; 36415; 71045; 85610; 88112; 88305

== ENCOUNTER 2021-03-26 06:43 | Outpatient (RCR) | payer MEDICARE, SELFPAY ==
--- NOTE | 2021-03-18 11:34 | ONC FU_ITS ---
Dr. Caraballo Patient Follow-Up Note Patient: Elliott Anderson Unit #: [id number]: 1945 Dicatated By: Roger Caraballo M.D.Date of Visit:Mar 15, 2021 Onc Med Follow-up/Prog Note Chief Complaint: Lung cancer. 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 On 11/02/2020 he was admitted to the hospital with traumatic left hip fracture. It occurred in association with atrial fibrillation/RVR and severe aortic stenosis. Due to the aortic stenosis, he was transferred to [facility] for further management, where he underwent a valvuloplasty procedure followed by left hip hemiarthroplasty. His preoperative evaluation also included chest CT which showed a 2.5 x 2.7 cm spiculated mass in the right upper lobe with extension into the mediastinum and right hilum. Overall the soft tissue mass measured 6.9 x 3.8 cm. The mass was noted to encase and significantly narrow the right lobar and segmental pulmonary arteries and was also noted to encase the right upper lobe bronchus. There were associated small mediastinal left hilar lymph nodes. An additional spiculated nodule measuring 8 mm was noted in the right apex. Other findings included severe emphysematous changes bilaterally. There was complete collapse of the left lower lung secondary to occlusion of the left lower lobe bronchus thought to be related to mucous plugging. CT abdomen/pelvis showed no obvious metastatic disease and there was also no metastatic disease noted on contrast-enhanced head CT scan. On 11/09/2020 he underwent bronchoscopy/EBUS. There were copious secretions found throughout the tracheobronchial tree which were partially obstructing the airway, and nose were suctioned. There is apparently no endobronchial lesion identified. You underwent FNA biopsy of left and right paratracheal and subcarinal lymph nodes. Cytology on the 4L in the subcarinal lymph nodes were negative, but the 4R FNA biopsy was positive for metastatic non-small cell carcinoma. The PD-L1 expression by IHC was negative at < 1%. He was then transferred to [place] for rehabilitation, and he subsequently was able to return home. I had seen him initially on 12/21/2020. His further evaluation included a staging PET/CT on 01/01/2021. 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 This included a left parotid mass measuring 1.6 x 1.2 cm with SUV 7.76 and an additional medial nodular density within the left parotid measuring 8.3 x 13.6 mm with SUV 10.02. A 9.3 mm density either within or anterior to the right parotid had SUV 5.61 and there are multiple additional right parotid lesions with SUVs ranging from 3.13-6.24. A level 2 lymph node just behind the right parotid measuring 8.4 mm was FDG avid with SUV 8.07. A large right hilar mass which was noted to invade the mediastinum and encases the right upper lobe bronchus measured 6.7 x 4.0 cm and was FDG avid with SUV 14.09. A left lower lobe superior segment subpleural nodular density measuring 4.2 x 3.6 cm had SUV 12.18. Left bronchial and hilar lymphadenopathy showed increased metabolic activity with SUVs of 11.16 and 5.50. A spiculated nodule in the right apex anteriorly was FDG negative and an additional spiculated nodule in the right upper lobe measuring 8.4 x 10.4 mm was FDG avid with SUV 3.18. Right carinal lymph nodes measuring 1.2 and 1.7 cm were FDG avid with SUV of 13.55 and 10.57. Overall, the findings were consistent with bilateral pulmonary neoplastic lesions and bilateral neoplastic parotid gland lesions and associated right cervical level 2, left bronchial, left hilar, and right subcarinal lymph node involvement. His evaluation also included next generation sequencing by liquid biopsy which showed no actionable mutations. His medical illnesses, in addition to the aortic stenosis and atrial fibrillation, include COPD and benign prostatic hypertrophy. He has a history of smoking 1 pack of cigarettes daily for about 50 years. He quit smoking in October 2020. INTERIM HISTORY: I had seen him for a follow-up visit on 02/01/2021. At that point he was beginning to show some improvement in his performance status. Treatment for the lung cancer was deferred pending repeat echocardiogram and further recommendations from his cardiac surgeon. The echocardiogram, on 02/09/2021 showed normal left ventricular systolic function with ejection fraction estimated at 60%. There was severe aortic valve calcification and moderate to severe aortic valve stenosis with a mean gradient of 24 mmHg and ERIKA 0.85 cm???. There was mild aortic valve regurgitation. There was no pericardial effusion. He was then seen again on February 14, 2021. 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 CT angiogram of the chest showed significant disease progression of the right upper lobe, right suprahilar, and right middle mediastinal tumor mass. There was associated occlusion of the right upper lobe bronchus and collapse of the right upper lobe and there was associated obstruction of the superior vena cava. Three new large metastatic lesions were noted in the left lower lobe superior segment, largest measuring 5.5 x 4.3 cm. With those findings, he began palliative radiation on an urgent basis. He completed treatment on February 28, 2021, total dose 2700 cGy. For some reason he opted not to take his last treatment. On March 09, 2021 he underwent ultrasound-guided right thoracentesis with removal of 1200 mL of pleural fluid. Cytology was negative. He is seen for a follow-up visit. He is feeling somewhat better following completion of the radiation. He is up and around at home. His ECOG score is 2. Appetite is still poor. He does not have fever or night sweats. He has had some soreness in his throat, but it is getting better. He still has some cough, but his breathing is better now. He has not been having chest pain. He has no GI/ complaints other than constipation. He has no significant joint or bone pain. He does not complain of headache. He does have some lightheadedness, but that also is decreasing. He has no numbness/paresthesia or other focal neurologic symptoms. Medications: Apixaban 1 Tablet (of 5 mg) Oral b.i.d., Aspirin 81 1 Tablet (of 81 mg) Tablet, chewable Oral daily, Bactrim DS 1 Tablet (of 800-160 mg) Oral b.i.d. for 3 days, Metoprolol Tartrate 12.5 mg (of 25 mg) Tablet Oral daily, Tamsulosin HCl 1 Capsule (of 0.4 mg) Oral b.i.d. Allergies: No Known Allergies. Vital Signs: Performed on Mar 15, 2021 10:37 Height - 73.00 in Weight - 171.4 lbs (LOW) BSA - 2.02 sq.m BMI - 22.61 Temperature - 97.6 F (LOW) Pulse - 50 /min (LOW) Respiration - 16 /min BP - 98/70 mm(hg) O2 Sat - 91 % (LOW) Pain - 0 Fatigue - 0 Physical Examination: Constitutional - He appears somewhat weak generally, Eyes - Sclerae nonicteric. Conjunctivae clear, ENMT - No lesions noted in the oral cavity, Hematologic/Lymphatic - No cervical, clavicular, or axillary adenopathy, Respiratory - Lungs show diminished air movement bilaterally, Cardiovascular - Heart rhythm is irregular. There is a II/ systolic murmur. There is no gallop or rub noted, Abdomen - Soft. Liver and spleen are not enlarged. There is no abdominal mass or ascites noted. There is a large inguinal hernia on the right. There is no inguinal adenopathy noted, Extremities - There is mild residual swelling of the arms. There is no lower extremity edema, Neurologic - No focal neurologic deficits noted. Lab/Imaging: Test performed on Feb 14, 2021 13:50 NT proBNP 568 pg/mL Iron 33 mcg/dL Sodium 130 mmol/L Iron Binding Capacity (TIBC) 268 mcg/dl Potassium 4.2 mmol/L % Iron Saturation 12.3 % Chloride 94 mmol/L CO2 21 mmol/L UIBC 235 mcg/dL Anion Gap 19.2 BUN 7 mg/dL Creatinine 0.4 mg/dL Cr Clearance (Est) 190.21 mL/min Glucose 88 mg/dL Osmolality - Calculated 267 mOsm/kg Calcium 8.5 mg/dL Protein, Total 7.3 g/dL Albumin 3.8 g/dL Globulin 3.5 g/dL Bilirubin, Total 0.4 mg/dL ALT (SGPT) 12 U/L AST (SGOT) 16 U/L Alkaline Phosphatase 108 IU/L WBC 6.7 10 3/uL RBC 3.55 10 6/uL HGB 9.6 g/dL HCT 30.2 % MCV 85.1 fl MCH 27.0 pg MCHC 31.8 g/dL RDW 14.8 % Platelet Count 298 10 3/cmm MPV 8.8 fL Neutrophils 4.26 10 3/uL Lymphocytes 1.3 10 3/uL Monocytes 0.7 10 3/uL Eosinophils 0.3 10 3/uL Basophils 0.1 10 3/uL Neutrophil % 63.4 % Lymphocyte % 19.8 % Monocyte % 10.7 % Eosinophil % 4.9 % Basophils % 0.9 % NRBC % 0 % Problem List: 1. Non-small cell carcinoma involving the upper lobe of the right lung, by clinical evaluation stage at least NICOLE (T4, N3, M1a). 2. He had CT evidence of left lower lobe atelectasis, initially thought to be due to mucous plugging. 3. Aortic stenosis, status post valvuloplasty procedure on 11/06/2020. 4. Traumatic left hip fracture, status post hemiarthroplasty on 11/07/2020. 5. Atrial fibrillation. 6. COPD. 7. Benign prostatic hypertrophy. 8. Right inguinal hernia. Problems Addressed with this Encounter and Plan: 1. 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 He underwent bronchoscopy/EBUS on 11/09/2020. The diagnosis was confirmed by FNA biopsy of station 4R lymph node. The tumor was negative for PD-L1 expression, <1%. CT showed relatively large primary malignancy in the right upper lobe/right hilar area. Staging PET/CT showed FDG avid right hilar mass measuring 6.7 x 4.0 cm. There was associated invasion of the mediastinum. A 4.2 x 3.6 cm left lower lobe mass was also FDG avid. Other findings included bilateral FDG avid parotid lesions. There appeared to be involved cervical level 2, left bronchial, left hilar, and right subcarinal lymph nodes. As such, his disease appears to be stage at least NICOLE (T4, N3, M1a) and possibly IVB to be aware of the parotid lesions represent metastatic disease or an unrelated malignant process. There were no actionable mutations identified on next generation sequencing by liquid biopsy. The PET/CT findings and pathology were reviewed with the patient and his son, and we discussed the clinical implications. He was advised that he would not be a candidate for chemoradiation, and that any treatment would be palliative. He indicated, though, that he did want to pursue treatment aggressively. We discussed the fact that with a PD-L1 negative tumor and with no actionable mutations identified, the best option would be combined chemotherapy/immunotherapy utilizing carboplatin/paclitaxel for the chemotherapy regimen. However, his treatment initially was deferred pending repeat echocardiogram and further recommendations from his cardiovascular surgeon. The echocardiogram showed moderate to severe aortic stenosis but with normal left ventricular systolic function. Following discussion with the cardiovascular surgeon, the plan was to proceed with treatment for the lung cancer and consider aortic valve replacement if he was to have significant response. 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 He has CT angiogram of the chest showed significant disease progression of the right upper lobe, right suprahilar, and right middle mediastinal tumor mass. There was associated occlusion of the right upper lobe bronchus and collapse of the right upper lobe and there was associated obstruction of the superior vena cava. Three new large metastatic lesions were noted in the left lower lobe superior segment, largest measuring 5.5 x 4.3 cm. With those findings, he underwent palliative radiation. He received 9/10 planned fractions, completed on February 28, 2021, total dose 2700 cGy. He has had symptomatic improvement with the radiation. Performance status is still somewhat marginal, but he is motivated to continue further treatment for the lung cancer. With a PD-L1 negative tumor and with no actionable mutations identified, he is offered the option to have combined chemotherapy/immunotherapy with carboplatin/pemetrexed in combination with pembrolizumab. Treatment will be initiated pending verification of insurance coverage. He also will need some type of venous access device, and I will discuss that with Dr. Alexis. 2. He has moderately severe anemia with low transferrin saturation, consistent with iron deficiency. He began on oral iron supplementation, but he has been tolerating it poorly due to constipation. As such, he will be given the option to have parenteral iron replacement, but that also will be subject to verification of insurance coverage. Signed By: Roger Caraballo M.D. <<Signature on File>>
--- NOTE | 2021-03-22 09:31 | CT_ITS ---
WS: [id number] CT CHEST WITH INTRAVENOUS CONTRAST HISTORY: RESTAGING EVALUATION TECHNIQUE: Contiguous 5 mm axial imaging performed on the thorax. Coronal and sagittal reformats are submitted. All CT scans at [facility] use at least one of these dose optimization techniques: automated exposure control; mA and/or kV adjustment per patient size (includes targeted exams where dose is matched to clinical indication); or iterative reconstruction. CONTRAST: Omnipaque 300; 95 mL IV. DLP: 711.5 mGy.cm COMPARISON: 02/14/2021 Lungs and central airway: Complete and progressive collapse of the RIGHT upper lobe. Soft tissue occl usion of the RIGHT upper lobe bronchus as seen on the prior examination. Moderate-sized layering RIGH T pleural effusion has slightly progressed since the prior study. Fluid along the fissures bilaterall y. 2 subpleural-based nodules in the posterior LEFT lower lobe are reidentified. The superior nodule measures 3.6 x 2.7 cm and the more inferior nodule measures 3.8 x 3.4 cm. These nodules have not dukes ged significantly in size. There is adjacent interstitial thickening and stranding which may be lymph angitic spread of tumor. This interstitial thickening is also noted throughout the remaining lobes. A dditional solid nodule with a maximum diameter of 2.1 cm in the more central LEFT lower lobe. There i s an additional nodule measuring 0.8 cm in the RIGHT lower lobe which was present on the prior study. Pleura: No significant effusion on the LEFT. Moderate size RIGHT pleural effusion has slightly increa sed. Heart and pericardium: No significant shift of the mediastinal structures. Heart is moderately enlarg ed. Mediastinum and cristian: The mediastinal and hilar lymph nodes surrounding the aorta and in the prevascu lar space actually have slightly decreased in size. The LEFT hilar lymph node measures 14 mm which is unchanged. There are additional LEFT hilar lymph nodes which have improved or resolved significantly . Mild improvement in the RIGHT hilar lymphadenopathy. Vessels: Thoracic aorta is mildly atherosclerotic. Normal size pulmonary artery. Partial narrowing an d encasement by tumor of the LEFT upper lobe pulmonary artery. Slight improved contrast enhancement t hrough the SVC although there is still occlusion of the SVC. Extensive collateralization from the SVC obstruction noted. Chest wall and lower neck: No soft tissue masses. Upper abdomen: Splenic granulomata. No adrenal mass seen. The visualized liver is negative for metast atic sites. Mild soft tissue anasarca. Osseous structures: No destructive process. CT/CT chest w con* [id number] IMPRESSION: 1. No appreciable change in size of the 3 metastatic masses in the LEFT lower lobe. 2. Complete collapse RIGHT upper lobe due to proximal bronchial obstruction. P rogressed slightly since the prior examination. Mass obstructing the bronchus i n the RIGHT upper lobe has not significantly changed or improved. 3. Moderate RIGHT pleural effusion has also increased in size. 4. Additional RIGHT lower lobe pulmonary nodule is unchanged. Other changes of lymphangitic spread of tumor are suspected bilaterally. 5. Bilateral hilar lymphadenopathy has improved slightly. Overall the mediasti nal and hilar lymph nodes seen on the prior study have also slightly improved. The largest lymph node in the LEFT hilar region measures 14 mm. 6. No evidence for metastatic disease to the liver or adrenal glands. 7. Continued superior vena cava syndrome. Extensive enhancing collaterals thro ughout the upper thorax.
[2021-03-22] MEDS: iohexol 300 mg/mL 100 mL Btl IV (09:58)
[2021-03-26] MEDS: cyanocobalamin 1,000 mcg/mL SDV 1000 MCG SUBCUT (10:51)
[2021-03-26] MEDS: ferric carboxy (IVPB) 750 MG in sodium chloride 0.9% (100 ml) 100 ML 460 MG IV (10:55)
[2021-03-26] MEDS: sodium chloride 0.9% (100 ml) 100 ML 400 ML (10:55)
== END 2021-03-26 23:59 | disposition home or self-care (01) ==
LOC: RAD 06:43
PROVIDERS: PCP Family Medicine; Visit Provider Internal Medicine Medical Oncology
DX: C34.11 Malignant neoplasm of upper lobe, right bronchus or lung (principal); J98.11 Atelectasis; I70.0 Atherosclerosis of aorta; Z96.642 Presence of left artificial hip joint; I48.91 Unspecified atrial fibrillation; J44.9 Chronic obstructive pulmonary disease, unspecified; N40.0 Benign prostatic hyperplasia without lower urinary tract symptoms; K40.90 Unilateral inguinal hernia, without obstruction or gangrene, not specified as recurrent; D50.9 Iron deficiency anemia, unspecified; D51.9 Vitamin B12 deficiency anemia, unspecified; Z79.899 Other long term (current) drug therapy
CPT/HCPCS: 71260; 96365; 96372; 99214; 99215; J1439; J3420; Q9967

== ENCOUNTER 2021-04-02 10:38 | Outpatient (RCR) | payer MEDICARE, SELFPAY ==
[2021-04-02] MEDS: sodium chloride 0.9% (100 ml) 100 ML 400 ML (10:55)
[2021-04-02] MEDS: ferric carboxy (IVPB) 750 MG in sodium chloride 0.9% (100 ml) 100 ML 460 MG IV (10:55)
--- NOTE | 2021-04-18 14:13 | ONC FU_ITS ---
Dr. Caraballo Patient Follow-Up Note Patient: Elliott Anderson Unit #: [id number]: [id number] Dicatated By: Roger Caraballo M.D.Date of Visit:Apr 18, 2021 Onc Med Follow-up/Prog Note Chief Complaint: Lung cancer. 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 On 11/02/2020 he was admitted to the hospital with traumatic left hip fracture. It occurred in association with atrial fibrillation/RVR and severe aortic stenosis. Due to the aortic stenosis, he was transferred to [facility] for further management, where he underwent a valvuloplasty procedure followed by left hip hemiarthroplasty. His preoperative evaluation also included chest CT which showed a 2.5 x 2.7 cm spiculated mass in the right upper lobe with extension into the mediastinum and right hilum. Overall the soft tissue mass measured 6.9 x 3.8 cm. The mass was noted to encase and significantly narrow the right lobar and segmental pulmonary arteries and was also noted to encase the right upper lobe bronchus. There were associated small mediastinal left hilar lymph nodes. An additional spiculated nodule measuring 8 mm was noted in the right apex. Other findings included severe emphysematous changes bilaterally. There was complete collapse of the left lower lung secondary to occlusion of the left lower lobe bronchus thought to be related to mucous plugging. CT abdomen/pelvis showed no obvious metastatic disease and there was also no metastatic disease noted on contrast-enhanced head CT scan. On 11/09/2020 he underwent bronchoscopy/EBUS. There were copious secretions found throughout the tracheobronchial tree which were partially obstructing the airway, and nose were suctioned. There is apparently no endobronchial lesion identified. You underwent FNA biopsy of left and right paratracheal and subcarinal lymph nodes. Cytology on the 4L in the subcarinal lymph nodes were negative, but the 4R FNA biopsy was positive for metastatic non-small cell carcinoma. The PD-L1 expression by IHC was negative at < 1%. He was then transferred to [place] for rehabilitation, and he subsequently was able to return home. I had seen him initially on 12/21/2020. His further evaluation included a staging PET/CT on 01/01/2021. 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 This included a left parotid mass measuring 1.6 x 1.2 cm with SUV 7.76 and an additional medial nodular density within the left parotid measuring 8.3 x 13.6 mm with SUV 10.02. A 9.3 mm density either within or anterior to the right parotid had SUV 5.61 and there are multiple additional right parotid lesions with SUVs ranging from 3.13-6.24. A level 2 lymph node just behind the right parotid measuring 8.4 mm was FDG avid with SUV 8.07. A large right hilar mass which was noted to invade the mediastinum and encases the right upper lobe bronchus measured 6.7 x 4.0 cm and was FDG avid with SUV 14.09. A left lower lobe superior segment subpleural nodular density measuring 4.2 x 3.6 cm had SUV 12.18. Left bronchial and hilar lymphadenopathy showed increased metabolic activity with SUVs of 11.16 and 5.50. A spiculated nodule in the right apex anteriorly was FDG negative and an additional spiculated nodule in the right upper lobe measuring 8.4 x 10.4 mm was FDG avid with SUV 3.18. Right carinal lymph nodes measuring 1.2 and 1.7 cm were FDG avid with SUV of 13.55 and 10.57. Overall, the findings were consistent with bilateral pulmonary neoplastic lesions and bilateral neoplastic parotid gland lesions and associated right cervical level 2, left bronchial, left hilar, and right subcarinal lymph node involvement. His evaluation also included next generation sequencing by liquid biopsy which showed no actionable mutations. His medical illnesses, in addition to the aortic stenosis and atrial fibrillation, include COPD and benign prostatic hypertrophy. He has a history of smoking 1 pack of cigarettes daily for about 50 years. He quit smoking in October 2020. INTERIM HISTORY: I had seen him for a follow-up visit on 02/01/2021. At that point he was beginning to show some improvement in his performance status. Treatment for the lung cancer was deferred pending repeat echocardiogram and further recommendations from his cardiac surgeon. The echocardiogram, on 02/09/2021 showed normal left ventricular systolic function with ejection fraction estimated at 60%. There was severe aortic valve calcification and moderate to severe aortic valve stenosis with a mean gradient of 24 mmHg and ERIKA 0.85 cm???. There was mild aortic valve regurgitation. There was no pericardial effusion. He was then seen again on February 14, 2021. 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 CT angiogram of the chest showed significant disease progression of the right upper lobe, right suprahilar, and right middle mediastinal tumor mass. There was associated occlusion of the right upper lobe bronchus and collapse of the right upper lobe and there was associated obstruction of the superior vena cava. Three new large metastatic lesions were noted in the left lower lobe superior segment, largest measuring 5.5 x 4.3 cm. With those findings, he began palliative radiation on an urgent basis. He completed treatment on February 28, 2021, total dose 2700 cGy. For some reason he opted not to take his last treatment. On March 09, 2021 he underwent ultrasound-guided right thoracentesis with removal of 1200 mL of pleural fluid. Cytology was negative. Repeat chest CT on 03/22/2021 showed slight improvement in the superior vena cava obstruction, but there was persistent mass obstructing the bronchus in the right upper lobe with complete right upper lobe collapse. A moderate right pleural effusion was noted to have increased. Bilateral hilar adenopathy was slightly improved. The left lower lobe metastatic lesions appeared stable. I had seen him for a follow-up visit on 03/15/2021. At that point his symptoms had improved somewhat. He still had fairly marginal performance status, but he was motivated to continue with further treatment. With the PD-L1 negative tumor, he was given the option to have a trial of systemic therapy with carboplatin/pemetrexed in combination with pembrolizumab. Due to his superior vena cava obstruction and poor peripheral venous access, he underwent placement of a femoral vein Port-A-Cath. He then began cycle 1 of carboplatin/pemetrexed/pembrolizumab on 04/11/2021. He is seen for a follow-up visit. He says that he felt terrible for 1 day after his chemotherapy treatment, mainly just feeling generally weak. By the next day he was better, and since then he has been feeling pretty good. He still has limited activity, but he is up and around at home. ECOG score is 2. His appetite is a little better. He has not had fever or night sweats. He has not had sore mouth or throat. He sometimes has cough. He says his breathing is okay. He does not complain of chest pain. He has no GI complaints other than some constipation. His bladder is overactive. He does not have any significant joint or bone pain. He does not complain of headache or dizziness, and he has no focal neurologic symptoms. Medications: Apixaban 1 Tablet (of 5 mg) Oral b.i.d., Aspirin 81 1 Tablet (of 81 mg) Tablet, chewable Oral daily, Metoprolol Tartrate 12.5 mg (of 25 mg) Tablet Oral daily, Tamsulosin HCl 1 Capsule (of 0.4 mg) Oral b.i.d. Allergies: No Known Allergies. Vital Signs: Performed on Apr 18, 2021 10:15 Height - 73.00 in Weight - 173.6 lbs (LOW) BSA - 2.03 sq.m BMI - 22.90 Temperature - 97.6 F (LOW) Pulse - 68 /min Respiration - 16 /min BP - 95/58 mm(hg) O2 Sat - 98 % Pain - 0 Fatigue - 0 Physical Examination: Constitutional - He appears somewhat weak generally, but not acutely ill, Eyes - Sclerae nonicteric. Conjunctivae clear, ENMT - No lesions noted in the oral cavity, Hematologic/Lymphatic - No cervical, clavicular, or axillary adenopathy, Respiratory - Lungs show some decrease in air movement bilaterally. There are coarse rales on the right, Cardiovascular - Heart rhythm is irregular. There is a II/ systolic murmur. There is no gallop or rub noted, Abdomen - Soft. Liver and spleen are not enlarged. There is no abdominal mass or ascites noted. There is a large inguinal hernia on the right. There is no inguinal adenopathy noted, Extremities - No edema, Integumentary - His skin is angel luis flaky, particularly on the lower extremities, Neurologic - No focal neurologic deficits noted. Lab/Imaging: Test performed on Apr 18, 2021 08:45 Sodium 128 mmol/L TSH 3.80 uIU/mL Potassium 3.7 mmol/L Chloride 95 mmol/L CO2 26 mmol/L Anion Gap 10.7 BUN 10 mg/dL Creatinine 0.5 mg/dL Cr Clearance (Est) 143.1600 mL/min Glucose 115 mg/dL Osmolality - Calculated 266 mOsm/kg Calcium 8.2 mg/dL Protein, Total 6.6 g/dL Albumin 3.6 g/dL Globulin 3.0 g/dL Bilirubin, Total 0.4 mg/dL ALT (SGPT) < 5 U/L AST (SGOT) 10 U/L Alkaline Phosphatase 93 IU/L WBC 2.5 10 3/uL RBC 3.84 10 6/uL HGB 10.6 g/dL HCT 33.0 % MCV 85.9 fl MCH 27.6 pg MCHC 32.1 g/dL RDW 18.7 % Platelet Count 134 10 3/cmm MPV 9.0 fL Neutrophils 1.91 10 3/uL Lymphocytes 0.5 10 3/uL Monocytes 0.1 10 3/uL Eosinophils 0.0 10 3/uL Basophils 0.0 10 3/uL Neutrophil % 75.4 % Lymphocyte % 19.8 % Monocyte % 2.0 % Eosinophil % 1.2 % Basophils % 0.8 % NRBC % 0 % CBC Slide Review Slide Review Perform SLIDE REVIEW AGREES WITH AUTOMATED RESULTS Problem List: 1. Non-small cell carcinoma involving the upper lobe of the right lung, by clinical evaluation stage at least NICOLE (T4, N3, M1a). 2. He had CT evidence of left lower lobe atelectasis, initially thought to be due to mucous plugging. 3. Aortic stenosis, status post valvuloplasty procedure on 11/06/2020. 4. Traumatic left hip fracture, status post hemiarthroplasty on 11/07/2020. 5. Atrial fibrillation. 6. COPD. 7. Benign prostatic hypertrophy. 8. Right inguinal hernia. Problems Addressed with this Encounter and Plan: 1. 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 He underwent bronchoscopy/EBUS on 11/09/2020. The diagnosis was confirmed by FNA biopsy of station 4R lymph node. The tumor was negative for PD-L1 expression, <1%. CT showed relatively large primary malignancy in the right upper lobe/right hilar area. Staging PET/CT showed FDG avid right hilar mass measuring 6.7 x 4.0 cm. There was associated invasion of the mediastinum. A 4.2 x 3.6 cm left lower lobe mass was also FDG avid. Other findings included bilateral FDG avid parotid lesions. There appeared to be involved cervical level 2, left bronchial, left hilar, and right subcarinal lymph nodes. As such, his disease appears to be stage at least NICOLE (T4, N3, M1a) and possibly IVB to be aware of the parotid lesions represent metastatic disease or an unrelated malignant process. There were no actionable mutations identified on next generation sequencing by liquid biopsy. The PET/CT findings and pathology were reviewed with the patient and his son, and we discussed the clinical implications. He was advised that he would not be a candidate for chemoradiation, and that any treatment would be palliative. He indicated, though, that he did want to pursue treatment aggressively. We discussed the fact that with a PD-L1 negative tumor and with no actionable mutations identified, the best option would be combined chemotherapy/immunotherapy utilizing carboplatin/paclitaxel for the chemotherapy regimen. However, his treatment initially was deferred pending repeat echocardiogram and further recommendations from his cardiovascular surgeon. The echocardiogram showed moderate to severe aortic stenosis but with normal left ventricular systolic function. Following discussion with the cardiovascular surgeon, the plan was to proceed with treatment for the lung cancer and consider aortic valve replacement if he was to have significant response. 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 He has CT angiogram of the chest showed significant disease progression of the right upper lobe, right suprahilar, and right middle mediastinal tumor mass. There was associated occlusion of the right upper lobe bronchus and collapse of the right upper lobe and there was associated obstruction of the superior vena cava. Three new large metastatic lesions were noted in the left lower lobe superior segment, largest measuring 5.5 x 4.3 cm. With those findings, he underwent palliative radiation. He received 9/10 planned fractions, completed on February 28, 2021, total dose 2700 cGy. He did show some symptomatic improvement with the radiation. His performance status was still somewhat marginal, but he was motivated to continue further treatment for the lung cancer. With a PD-L1 negative tumor and with no actionable mutations identified, he was offered the option to have combined chemotherapy/immunotherapy with carboplatin/pemetrexed in combination with pembrolizumab. He began cycle 1 on 04/11/2021. He felt generally weak for the first day after the treatment, but since then his symptoms have been improving, and he has otherwise been tolerating it well. He does have moderately severe neutropenia at day 8. He is not symptomatic with it. His blood count will be rechecked next week. He is scheduled for a follow-up visit in 2 weeks. 2. He had moderately severe anemia with low transferrin saturation, consistent with iron deficiency. He had very poor tolerance for his oral iron supplement. He was given parenteral iron replacement with an infusion of Injectafer on 04/11/2021. He tolerated it well. He will proceed now with his second scheduled Injectafer infusion. Signed By: Roger Caraballo M.D. <<Signature on File>>
== END 2021-04-08 23:59 | disposition home or self-care (01) ==
LOC: ONCMED 10:38
PROVIDERS: PCP Family Medicine; Visit Provider Internal Medicine Medical Oncology
DX: C34.11 Malignant neoplasm of upper lobe, right bronchus or lung (principal); J98.11 Atelectasis; I35.0 Nonrheumatic aortic (valve) stenosis; Z96.642 Presence of left artificial hip joint; I48.91 Unspecified atrial fibrillation; J44.9 Chronic obstructive pulmonary disease, unspecified; N40.0 Benign prostatic hyperplasia without lower urinary tract symptoms; K40.90 Unilateral inguinal hernia, without obstruction or gangrene, not specified as recurrent; D50.9 Iron deficiency anemia, unspecified; Z79.899 Other long term (current) drug therapy
CPT/HCPCS: 96365; 99215; J1439

== ENCOUNTER → 2021-04-03 09:46 | Outpatient (BNVA) | payer MEDICARE, SELFPAY | PROVIDERS: PCP Family Medicine; Visit Provider Nurse Practitioner Family | DX: R82.90 Unspecified abnormal findings in urine (principal); R82.71 Bacteriuria | CPT/HCPCS: 81003; 87086 ==

== ENCOUNTER → 2021-04-05 10:00 | Outpatient (BNVA) | payer MEDICARE, SELFPAY | PROVIDERS: PCP Family Medicine; Visit Provider Thoracic Surgery (Cardiothoracic Vascular Surgery) | DX: Z20.822 Contact with and (suspected) exposure to COVID-19 (principal); I87.1 Compression of vein | CPT/HCPCS: 87635 ==

== ENCOUNTER 2021-04-09 10:35 | Day surgery (SDC) | payer MEDICARE, SELFPAY ==
--- NOTE | 2021-04-05 11:14 | ECG_ITS ---
[facility] Test Date: 2021-04-05 Pat Name: Elliott Anderson Department: Room: Gender: Male Sales Mgr: : 1945 Requested By: Ana Marroquin Order Number: [id number] Reading MD: MARIANA RAIN Measurements Intervals [place] Rate: 69 P: 71 RI: 176 QRS: 20 QRSD: 94 T: 57 QT: 407 QTc: 436 Interpretive Statements SINUS RHYTHM SEPTAL MYOCARDIAL INFARCTION , OF INDETERMINATE AGE [40+ ms Q WAVE IN V1/V2] Compared to ECG 11/02/2020 12:27:29 Myocardial infarct finding now present Atrial fibrillation no longer present Incomplete right bundle-branch block no longer present Electronically Signed On 04-05-2021 21:49:26 PATROL SERGEANT by MARIANA RAIN [email or web address]
[2021-04-05 11:19] VITALS: BMI 23.1
--- NOTE | 2021-04-05 12:09 | ANES.PREANE2 ---
Pre-Anesthetic Assessment Height/Weight: Height 1.85 m Weight 79.379 kg Operation Date: 04/09/21 12:00 Proposed Procedures p Portacath Insertion(Not Applicable) - Vamsi Alexis MD Familial anesthetic complications: None Social Alcohol (12oz wine daily) and No tobacco Exam alert, oriented x 3, clear to auscultation bilaterally and regular rate & rhythm Airway Mallampati: Class III Dentition: partials Comments: Comments: Full [facility] Pul[facility] Lung cancer February 2019 IMPRESSION: ? 1.? No appreciable change in size of the 3 metastatic masses in the LEFT lower lobe. 2.? Complete collapse RIGHT upper lobe due to proximal bronchial obstruction. Progressed slightly since the prior examination. Mass obstructing the bronchus in the RIGHT upper lobe has not significantly changed or improved. 3.? Moderate RIGHT pleural effusion has also increased in size. 4.? Additional RIGHT lower lobe pulmonary nodule is unchanged. Other changes of lymphangitic spread of tumor are suspected bilaterally. 5.? Bilateral hilar lymphadenopathy has improved slightly. Overall the mediastinal and hilar lymph nodes seen on the prior study have also slightly improved. The largest lymph node in the LEFT hilar region measures 14 mm. 6.? No evidence for metastatic disease to the liver or adrenal glands. 7.? Continued superior vena cava syndrome. Extensive enhancing collaterals throughout the upper thorax. Echo?CONCLUSIONS ?1-Normal left ventricular cavity size. Normal left ventricular ?systolic function. No regional wall motion abnormalities. Left ?ventricular ejection fraction is estimated at 60 %. ?2-Severe aortic valve calcification. Moderate to severe aortic ?valve stenosis, mean gradient 24 mmHg, ERIKA 0.85 cm squared. Mild aortic ?valve regurgitation. ?3-Mild tricuspid valve regurgitation. ?4-There is no pericardial effusion. ?5-No significant change since the prior echocardiogram study of ?12/02/2020. CV/HEM Atrial Fibrillation Severe aortic stenosis; SVC syndrome Anesthetic Plan ASA status: 4 Anesthesia: MAC Medications/Allergies Home Medications Medication Instructions Recorded Confirmed Last Taken Type apixaban 5 mg tablet (Eliquis) 5 mg PO BID 03/09/21 04/05/21 03/03/21 History methenamine hippurate 1 gram tablet 1 g PO BID 03/09/21 04/05/21 03/03/21 History metoprolol succinate 25 mg 12.5 mg PO DAILY 03/09/21 04/05/21 03/03/21 History tablet,extended release 24 hr tamsulosin 0.4 mg capsule 0.4 mg PO BID 03/09/21 04/05/21 03/03/21 History ascorbic acid (vitamin C) 1,000 mg 1,000 mg PO DAILY 04/05/21 04/05/21 Unknown History tablet (Vitamin C) folic acid 1 mg tablet 1 mg PO DAILY 04/05/21 04/05/21 Unknown History Allergies Allergy/AdvReac Type Severity Reaction Status Date / Time No Known Allergies Allergy Verified 04/03/21 09:38 [facility] Anesthesia Medical History BPH w urinary obs/LUTS Chronic progressive lower urinary tract symptoms consistent with BPH with good response to double dose TAMSULOSIN. No objective concerns regarding risk Heart murmur Skin lesion Urinary retention Surgical History H/O cataract removal with insertion of prosthetic lens H/O hernia repair H/O knee surgery Family History Father , at age 70 Alzheimer disease Mother , at age 80 No problems noted. Social History Smoking and tobacco status: former smoker Quit status (tobacco): has quit using tobacco Year quit tobacco: 10/2020 Alcohol intake: current Alcohol intake frequency: 0-2 Drinks per Day Lives independently: Yes Marital status: / Current occupational status: retired Data Anesthesia : 04/05/21 11:45 04/05/21 11:45 Cardiac Studies: Echocardiogram 11/02/20 Echocardiogram Limited Views 02/09/21
[2021-04-05 12:19] LABS: Basophils # 0.1 10^3/uL (0.0-0.1); Eosinophils # 0.2 10^3/uL (0.0-0.8); Eosinophils % 2.5 %; Hematocrit 34.2 % (42.0-52.0); Hemoglobin 10.5 g/dL (11.7-16.6); Lymphocytes # 0.8 10^3/uL (0.8-4.8); Lymphocytes % 12.5 %; Mean Corpuscular HGB Conc 30.7 g/dL (30.0-36.0); Mean Corpuscular Hemoglobin 27.1 pg (28.0-34.0); Mean Corpuscular Volume 88.1 fl (80-94); Mean Platelet Volume 9.4 fL (7.4-10.4); Monocytes # 0.6 10^3/uL (0.2-0.9); Monocytes % 9.8 %; Neutrophils # 4.41 10^3/uL (1.8-7.7); Neutrophils % 73.7 %; Nucleated Red Blood Cells % 0 %; Platelet Count 254 10^3/cmm (130-400); Red Blood Count 3.88 10^6/uL (4.1-5.3)
[2021-04-05 12:43] LABS: Anion Gap 14.1 (5-19); Blood Urea Nitrogen 8 mg/dL (8-23); Calcium 9.1 mg/dL (8.5-10.5); Carbon Dioxide 24 mmol/L (22-29); Chloride 96 mmol/L (98-107); Glucose 76 mg/dL (65-115); Osmolality Calculated 267 mOsm/kg (285-295); Potassium 4.1 mmol/L (3.5-5.1); Sodium 130 mmol/L (136-145)
[2021-04-05 12:54] LABS: Add Urine Microscopic? YES; Bilirubin Urine Neg (Negative); Blood Urine 2+ (Negative); Glucose Urine UA Norm (Normal); Ketones Urine Negative (Negative); Leukocyte Esterase Urine Negative (Negative); Nitrate Urine Negative (Negative); Protein Urine Trace (Negative); Specific Gravity, Urine 1.025 (1.005-1.030); Urine Appearance Clear (CLEAR); Urine Color Yellow (Yellow); Urobilinogen Urine Neg (Negative); pH Urine 5 (5-7)
[2021-04-05 12:55] LABS: Amorphous Sediment Urine 1+ /hpf; Bacteria Urine TRACE /hpf; Mucus Urine 2+ /hpf; RBC Urine 0-4 /hpf (0-2); Squamous Epithelial Cell Urine 0-4 /hpf (0-5); WBC Urine 0-4 /hpf (0-5)
[2021-04-09] VITALS (7 sets, daily range): BP systolic 84–114; BP diastolic 54–73; PULSE 98–114; RESP 18; TEMP 36.2–36.7; O2SAT 91–99
--- NOTE | 2021-04-09 | SCC_ITS ---
Procedure done: Femoral vein Port-A-Cath placement 6.8 seconds of fluoroscopic guidance, for a cumulative dose of 1.11 mGy, was provided to Dr. Alexis by the radiology department. C-arm images of the chest were saved for the patient's permanent record. [facility] HOSPITALGermaine
--- NOTE | 2021-04-09 10:37 | SC_ITS ---
WS: [id number] INTRAOPERATIVE TECHNIQUE: 2 Spot fluoroscopic images for intraoperative purposes. FLUOROSCOPY TIME: 6.8 seconds CLINICAL INFORMATION: Port-A-Cath placement COMPARISON: None. FINDINGS: Partially visualized RIGHT femoral catheter. SC/C-arm FL for CVA [id number] IMPRESSION: Images obtained for intraoperative purposes.
[2021-04-09] MEDS: sodium chloride 0.9% 1,000 ML 30 ML IV (11:34)
--- NOTE | 2021-04-09 11:58 | P.ANESUD_ITS ---
Pre-Anesthetic Update Pre-Anesthetic Assessment: Date of Surgery/Procedure: 04/09/21 Preop Fabby gnosis: Port-A-Cath placement Proposed Procedure: Operation Date: 04/09/21 12:00 Proposed Procedures p Portacath Insertion(Not Applicable) - Vamsi Alexis MD Any changes to Pre-Anesthetic Assessment?: No Last Intake: Intake Last Liquid Date 04/08/21 Last Liquid Time 03:30 Last Solid Date 04/08/21 Last Solid Time 13:00 Vitals: Temperature 98.1 F 04/09/21 10:48 Temperature Source Temporal Artery S can 04/09/21 10:48 Pulse Rate 108 H 04/09/21 10:48 Pulse Rhythm 04/09/21 11:01 Pulse Strength 3+ Normal 04/09/21 11:01 Respiratory Rate 18 04/09/21 10:48 Blood Pressure 95/68 04/09/21 10:48 Blood Pressure Michelle n 77 04/09/21 10:48 Pulse Oximetry 99 04/09/21 10:48 Oxygen Delivery Me thod 04/09/21 11:01 Exam: Pre-Anes Outpt Exam: alert, oriented x 3, clear to auscultation bilaterally and regular rate & rhythm Cardiac Studies: Echocardiogram 11/02/20 Echocardiogram Limited Views 02/09/21
--- NOTE | 2021-04-09 12:00 | W.PM.OPSUD ---
Surgery/Procedure H&P Update DATE OF PROCEDURE: April 09, 2021 DATE H&P PERFORMED: 03/22/21 H&P UPDATE INFORMATION: I have reviewed H&P completed within last 30 days, I have examined patient prior to procedure and No changes to prior documentation PREOP DIAGNOSIS: Port-A-Cath placement PRIMARY INDICATION FOR PROCEDURE: Vascular access for chemotherapy Given SVC obstruction, we will plan for vascular access for Port-A-Cath placement through the femoral vein approach PLANNED PROCEDURE: Operation Date: 04/09/21 12:00 Proposed Procedures p Portacath Insertion(Not Applicable) - Vamsi Alexis MD
[2021-04-09] MEDS: lidocaine 1% INJ 20 mL SUBCUT (13:14)
[2021-04-09] MEDS: ceFAZolin 1,000 mg SDV 1000 MG IRRIGATION (13:19)
[2021-04-09] MEDS: heparin, porcine 1,000 unit/mL INJ 10 mL 10000 UNIT IRRIGATION (13:19)
--- NOTE | 2021-04-09 14:11 | PM.OP ---
Operative Report Date of procedure: April 09, 2021 Pre-op diagnosis: Preop Diagnosis Port-A-Cath placement Procedure done: Femoral vein Port-A-Cath placement Implants: Port-A-Cath and tubing Pathology: none sent Surgeon: Vamsi Alexis Estimated blood loss: 5 Complications: None Brief History: Mr. 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 He is status post radiotherapy. To allow for continued chemotherapy, Port-A-Cath placement is been requested. Due to obstruction of his superior vena cava, upper thoracic access is not available. Therefore I recommended femoral access and catheter placement. Rationale was carefully discussed with Mr. Anderson and his son. Details were reviewed. Appropriate consents have been reviewed and signed. The potential increased risk for Port-A-Cath failure and infection requiring need to explant were carefully discussed. Procedure: Ms. Anderson was taken to the operating room theater and carefully position where he received IV conscious sedation with anesthesia monitoring. Hair from the groin region was removed with clippers. The entire region from the mid abdomen down to mid thigh bilaterally was sterilely prepped and draped. Utilizing hand-held ultrasound, the right femoral vein was identified. 1% lidocaine was infiltrated in the skin and then an introducer needle was placed under ultrasound guidance into the right femoral vein, easily aspirated of blood, and a guidewire was placed and advanced under fluoroscopic guidance. Next, 1% lidocaine was infiltrated laterally and slightly inferior of the proximal right thigh. #15 scalpel blade was utilized to incise the skin and a subcutaneous pocket was created for the Port-A-Cath reservoir. After confirmation hemostasis a telemetry device was utilized to pass the vascular tubing from the Port-A-Cath reservoir pocket to the point of exit of the guidewire in the groin. This next, vascular tubing was measured to the appropriate length and connected to the Port-A-Cath reservoir and the entire system was flushed with heparinized saline solution. Dilator and tear-away sheath was placed over the guidewire and advanced under fluoroscopic guidance into position with removal of the guidewire and the dilator. Next, the vascular tubing was placed inside the tear-away sheath to its maximal length at which time the tear-away sheath was removed. The entire system easily aspirated of blood and was flushed with heparinized saline solution followed by full heparin strength. Next, the reservoir was secured to the floor of the pocket utilizing 2-0 silk suture. Hemostasis was confirmed. Wound was irrigated with antibiotic solution. Subtendinous layer was closed with 3-0 Vicryl suture followed by a second layer of 3-0 Vicryl suture to reapproximate the subcuticular region. Similar fashion was done to the small incision in the groin in which the vascular tubing was passed. Wounds were cleansed and dried. Biological mesh glue was then applied followed by pressure dressing. This relieved her procedure well, he was awakened from conscious sedation, and transported back to the outpatient surgery department. I did psychotherapist counselor with his son completion of the procedure. He is scheduled for oncologic appointment on April 11.
--- NOTE | 2021-04-09 16:04 | ANE.PACU2 ---
Inpatient post-anesthesia follow up: Airway intact: Yes Vital signs: Temperature 97.6 F Pulse Rate 112 Respiratory Rate 18 Blood Pressure 99/68 Pulse Oximetry 96 Oxygen Delivery Me thod Room Air Oxygen Flow Rate 2 Fraction of Inspir ed Oxygen Hydration adequate: Yes Nausea and vomiting: No Pain level: 3 Mental status: Baseline
== END 2021-04-09 14:55 | disposition home or self-care (01) ==
PROVIDERS: PCP Family Medicine; Visit Provider Thoracic Surgery (Cardiothoracic Vascular Surgery)
PROC: (CPT 36561; principal; 2021-04-09 12:00)
DX: C49.3 Malignant neoplasm of connective and soft tissue of thorax (principal); N40.1 Benign prostatic hyperplasia with lower urinary tract symptoms; N13.8 Other obstructive and reflux uropathy; Z87.891 Personal history of nicotine dependence; I87.1 Compression of vein
CPT/HCPCS: 36561; 36415; 77001; 80048; 81001; 85025; 93005; C1788; J0690; J1644; J2704; J7030

== ENCOUNTER 2021-04-18 06:57 | Outpatient (RCR) | payer MEDICARE, SELFPAY ==
[2021-04-11 08:38] LABS: Basophils # 0.1 10^3/uL (0.0-0.1); Basophils % 0.9 %; Eosinophils # 0.1 10^3/uL (0.0-0.8); Eosinophils % 2.3 %; Hematocrit 34.8 % (42.0-52.0); Lymphocytes # 0.6 10^3/uL (0.8-4.8); Lymphocytes % 11.2 %; Mean Corpuscular HGB Conc 31.6 g/dL (30.0-36.0); Mean Corpuscular Volume 88.5 fl (80-94); Mean Platelet Volume 9.3 fL (7.4-10.4); Monocytes # 0.6 10^3/uL (0.2-0.9); Monocytes % 10.9 %; Neutrophils # 4.25 10^3/uL (1.8-7.7); Neutrophils % 74.3 %; Nucleated Red Blood Cells % 0 %; Platelet Count 209 10^3/cmm (130-400); Red Blood Count 3.93 10^6/uL (4.1-5.3); White Blood Count 5.7 10^3/uL (4.0-10.0)
[2021-04-11 08:53] LABS: Alanine Aminotransferase < 5 U/L (0-41); Albumin Level 3.6 g/dL (3.5-5.2); Alkaline Phosphatase 102 IU/L (40-130); Anion Gap 12.2 (5-19); Aspartate Amino Transferase 8 U/L (0-40); Blood Urea Nitrogen 7 mg/dL (8-23); Carbon Dioxide 24 mmol/L (22-29); Chloride 100 mmol/L (98-107); Glucose 99 mg/dL (65-115); Osmolality Calculated 272 mOsm/kg (285-295); Potassium 4.2 mmol/L (3.5-5.1); Sodium 132 mmol/L (136-145); Total Bilirubin 0.4 mg/dL (0.15-1.2); Total Protein 6.6 g/dL (6.6-8.7)
[2021-04-11] MEDS: sodium chloride 0.9% 250 ML 125 ML IV (09:47)
[2021-04-11] MEDS: palonosetron 0.25 mg/5 mL SDV IV (09:47)
--- NOTE | 2021-04-11 09:50 | ONC FU_ITS ---
Josy Berger Progress Note Patient: Elliott Anderson Unit #: [id number]: [id number] Dicatated By: Josy Berger N.P.Date of Visit:Apr 11, 2021 Onc MED Follow-up/Prog Note Chief Complaint: Lung cancer. 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 On 11/02/2020 he was admitted to the hospital with traumatic left hip fracture. It occurred in association with atrial fibrillation/RVR and severe aortic stenosis. Due to the aortic stenosis, he was transferred to [facility] for further management, where he underwent a valvuloplasty procedure followed by left hip hemiarthroplasty. His preoperative evaluation also included chest CT which showed a 2.5 x 2.7 cm spiculated mass in the right upper lobe with extension into the mediastinum and right hilum. Overall the soft tissue mass measured 6.9 x 3.8 cm. The mass was noted to encase and significantly narrow the right lobar and segmental pulmonary arteries and was also noted to encase the right upper lobe bronchus. There were associated small mediastinal left hilar lymph nodes. An additional spiculated nodule measuring 8 mm was noted in the right apex. Other findings included severe emphysematous changes bilaterally. There was complete collapse of the left lower lung secondary to occlusion of the left lower lobe bronchus thought to be related to mucous plugging. CT abdomen/pelvis showed no obvious metastatic disease and there was also no metastatic disease noted on contrast-enhanced head CT scan. On 11/09/2020 he underwent bronchoscopy/EBUS. There were copious secretions found throughout the tracheobronchial tree which were partially obstructing the airway, and nose were suctioned. There is apparently no endobronchial lesion identified. You underwent FNA biopsy of left and right paratracheal and subcarinal lymph nodes. Cytology on the 4L in the subcarinal lymph nodes were negative, but the 4R FNA biopsy was positive for metastatic non-small cell carcinoma. The PD-L1 expression by IHC was negative at < 1%. He was then transferred to [place] for rehabilitation, and he subsequently was able to return home. I had seen him initially on 12/21/2020. His further evaluation included a staging PET/CT on 01/01/2021. 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 This included a left parotid mass measuring 1.6 x 1.2 cm with SUV 7.76 and an additional medial nodular density within the left parotid measuring 8.3 x 13.6 mm with SUV 10.02. A 9.3 mm density either within or anterior to the right parotid had SUV 5.61 and there are multiple additional right parotid lesions with SUVs ranging from 3.13-6.24. A level 2 lymph node just behind the right parotid measuring 8.4 mm was FDG avid with SUV 8.07. A large right hilar mass which was noted to invade the mediastinum and encases the right upper lobe bronchus measured 6.7 x 4.0 cm and was FDG avid with SUV 14.09. A left lower lobe superior segment subpleural nodular density measuring 4.2 x 3.6 cm had SUV 12.18. Left bronchial and hilar lymphadenopathy showed increased metabolic activity with SUVs of 11.16 and 5.50. A spiculated nodule in the right apex anteriorly was FDG negative and an additional spiculated nodule in the right upper lobe measuring 8.4 x 10.4 mm was FDG avid with SUV 3.18. Right carinal lymph nodes measuring 1.2 and 1.7 cm were FDG avid with SUV of 13.55 and 10.57. Overall, the findings were consistent with bilateral pulmonary neoplastic lesions and bilateral neoplastic parotid gland lesions and associated right cervical level 2, left bronchial, left hilar, and right subcarinal lymph node involvement. His evaluation also included next generation sequencing by liquid biopsy which showed no actionable mutations. His medical illnesses, in addition to the aortic stenosis and atrial fibrillation, include COPD and benign prostatic hypertrophy. He has a history of smoking 1 pack of cigarettes daily for about 50 years. He quit smoking in October 2020. INTERIM HISTORY: I had seen him for a follow-up visit on 02/01/2021. At that point he was beginning to show some improvement in his performance status. Treatment for the lung cancer was deferred pending repeat echocardiogram and further recommendations from his cardiac surgeon. The echocardiogram, on 02/09/2021 showed normal left ventricular systolic function with ejection fraction estimated at 60%. There was severe aortic valve calcification and moderate to severe aortic valve stenosis with a mean gradient of 24 mmHg and ERIKA 0.85 cm???. There was mild aortic valve regurgitation. There was no pericardial effusion. He was then seen again on February 14, 2021. 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 CT angiogram of the chest showed significant disease progression of the right upper lobe, right suprahilar, and right middle mediastinal tumor mass. There was associated occlusion of the right upper lobe bronchus and collapse of the right upper lobe and there was associated obstruction of the superior vena cava. Three new large metastatic lesions were noted in the left lower lobe superior segment, largest measuring 5.5 x 4.3 cm. With those findings, he began palliative radiation on an urgent basis. He completed treatment on February 28, 2021, total dose 2700 cGy. For some reason he opted not to take his last treatment. On March 09, 2021 he underwent ultrasound-guided right thoracentesis with removal of 1200 mL of pleural fluid. Cytology was negative. Patient presents today for education for chemo with Keytruda, carboplatin, and pemetrexed on a 21-day cycle. Son is also available for education. Patient states that he has been feeling well, he continues to have weakness but that is improving with time. He denies shortness of breath, cough, chest pain. The only pain he experiences at this time is that his right upper leg where his Port-A-Cath has been placed. He has some constipation but denies nausea or vomiting. He is currently being treated for urinary tract infection by Dr. Bear. He denies dysuria, fever or chills. Review Of Symptoms: See above. Past Medical History: Aortic stenosis Atrial fibrillation Benign prostatic hypertrophy Chronic obstructive pulmonary disease Past Surgical History: Arthroscopic right knee surgery Bilateral cataract excisions Hernia repair Left knee surgery Bronchoscopy/EBUS in 2020 Balloon valvuloplasty for aortic stenosis in 2020 Left hip hemiarthroplasty in 2020 COVID #1&2 in 2020 Allergies: No Known Allergies. Medications: Apixaban 1 Tablet (of 5 mg) Oral b.i.d. Aspirin 81 1 Tablet (of 81 mg) Tablet, chewable Oral daily Metoprolol Tartrate 12.5 mg (of 25 mg) Tablet Oral daily Tamsulosin HCl 1 Capsule (of 0.4 mg) Oral b.i.d. Family History: Mr. Anderson's mother is . Mr. Anderson's father is : alzheimer's disease. His father and his sister both with dementia. He does not know anything about his mother. Social History: Mr. Anderson is . Mr. Anderson no longer smokes. He drinks daily. He consumes 1 drink/day. 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 He has history of smoking 1 pack of cigarettes daily for about 50 years. He quit smoking in October 2020. He says that he used to drink a lot, but he cut down significantly about 6 to 8 months ago. He now drinks 1 beer daily. Physical Examination: Performed on Apr 11, 2021 08:32: Height - 73.00 in, Weight - 174.8 lbs (HIGH), BSA - 2.03 sq.m, BMI - 23.06, Temperature - 98.0 F (LOW), Pulse - 130 /min (HIGH), Respiration - 18 /min, BP - 107/65 mm(hg), O2 Sat - 100 %, Pain - 2, and Fatigue - 0. Performance Status: 2 - Ambulatory/capable of all self-care, unable to perform any work activities. Up and about more than 50% of waking hours. (ECOG) Constitutional Alert, cooperative, oriented. Mood and affect appropriate. Appears close to chronological age. Well nourished. Well developed. Head Normocephalic; no scars. Respiratory Left lung field clear to auscultation; Right lung field with course breath sounds Cardiovascular Regular rate with irregular rhythm Abdomen Non-tender, non-distended, no masses, ascites or hepatosplenomegaly. Good bowel sounds. No guarding or rebound tenderness. Extremities No visible deformities, no cyanosis, clubbing or edema. Pulses 3+ and equal bilaterally. Psychiatric Alert and oriented times three. Coherent speech. Verbalizes understanding of our discussions today. Laboratory: Test performed on Apr 11, 2021 08:15 Sodium 132 mmol/L Potassium 4.2 mmol/L Chloride 100 mmol/L CO2 24 mmol/L Anion Gap 12.2 BUN 7 mg/dL Creatinine 0.5 mg/dL Cr Clearance (Est) 143.16 mL/min Glucose 99 mg/dL Osmolality - Calculated 272 mOsm/kg Calcium 8.0 mg/dL Protein, Total 6.6 g/dL Albumin 3.6 g/dL Globulin 3.0 g/dL Bilirubin, Total 0.4 mg/dL ALT (SGPT) < 5 U/L AST (SGOT) 8 U/L Alkaline Phosphatase 102 IU/L WBC 5.7 10 3/uL RBC 3.93 10 6/uL HGB 11.0 g/dL HCT 34.8 % MCV 88.5 fl MCH 28.0 pg MCHC 31.6 g/dL RDW 20.0 % Platelet Count 209 10 3/cmm MPV 9.3 fL Neutrophils 4.25 10 3/uL Lymphocytes 0.6 10 3/uL Monocytes 0.6 10 3/uL Eosinophils 0.1 10 3/uL Basophils 0.1 10 3/uL Neutrophil % 74.3 % Lymphocyte % 11.2 % Monocyte % 10.9 % Eosinophil % 2.3 % Basophils % 0.9 % NRBC % 0 % Test performed on Feb 14, 2021 13:50 NT proBNP 568 pg/mL Iron 33 mcg/dL Iron Binding Capacity (TIBC) 268 mcg/dl % Iron Saturation 12.3 % UIBC 235 mcg/dL Impression: 1. Non-small cell carcinoma involving the upper lobe of the right lung, by clinical evaluation stage at least NICOLE (T4, N3, M1a). 2. He had CT evidence of left lower lobe atelectasis, initially thought to be due to mucous plugging. 3. Aortic stenosis, status post valvuloplasty procedure on 11/06/2020. 4. Traumatic left hip fracture, status post hemiarthroplasty on 11/07/2020. 5. Atrial fibrillation. 6. COPD. 7. Benign prostatic hypertrophy. 8. Right inguinal hernia. Plan: 1. 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 He underwent bronchoscopy/EBUS on 11/09/2020. The diagnosis was confirmed by FNA biopsy of station 4R lymph node. The tumor was negative for PD-L1 expression, <1%. CT showed relatively large primary malignancy in the right upper lobe/right hilar area. Staging PET/CT showed FDG avid right hilar mass measuring 6.7 x 4.0 cm. There was associated invasion of the mediastinum. A 4.2 x 3.6 cm left lower lobe mass was also FDG avid. Other findings included bilateral FDG avid parotid lesions. There appeared to be involved cervical level 2, left bronchial, left hilar, and right subcarinal lymph nodes. As such, his disease appears to be stage at least NICOLE (T4, N3, M1a) and possibly IVB to be aware of the parotid lesions represent metastatic disease or an unrelated malignant process. There were no actionable mutations identified on next generation sequencing by liquid biopsy. The PET/CT findings and pathology were reviewed with the patient and his son, and we discussed the clinical implications. He was advised that he would not be a candidate for chemoradiation, and that any treatment would be palliative. He indicated, though, that he did want to pursue treatment aggressively. We discussed the fact that with a PD-L1 negative tumor and with no actionable mutations identified, the best option would be combined chemotherapy/immunotherapy utilizing carboplatin/paclitaxel for the chemotherapy regimen. However, his treatment initially was deferred pending repeat echocardiogram and further recommendations from his cardiovascular surgeon. The echocardiogram showed moderate to severe aortic stenosis but with normal left ventricular systolic function. Following discussion with the cardiovascular surgeon, the plan was to proceed with treatment for the lung cancer and consider aortic valve replacement if he was to have significant response. 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 He has CT angiogram of the chest showed significant disease progression of the right upper lobe, right suprahilar, and right middle mediastinal tumor mass. There was associated occlusion of the right upper lobe bronchus and collapse of the right upper lobe and there was associated obstruction of the superior vena cava. Three new large metastatic lesions were noted in the left lower lobe superior segment, largest measuring 5.5 x 4.3 cm. With those findings, he underwent palliative radiation. He received 9/10 planned fractions, completed on February 28, 2021, total dose 2700 cGy. He has had symptomatic improvement with the radiation. Performance status is still somewhat marginal, but he is motivated to continue further treatment for the lung cancer. With a PD-L1 negative tumor and with no actionable mutations identified, he is offered the option to have combined chemotherapy/immunotherapy with carboplatin/pemetrexed in combination with pembrolizumab. Chemotherapy education and handouts were provided to the patient and his son. We discussed indications for treatment, side effects including nausea, vomiting, diarrhea, peripheral neuropathy and rash. Patient is doing well and is ready to start treatment chemotherapy with carboplatin and pemetrexed will be started today and every 21 days x 4 cycles. Keytruda will also be started today and be administered every 21 days. He will return in 1 week with CBC and CMP. 2. He has moderately severe anemia with low transferrin saturation, consistent with iron deficiency. Injectafer x2 was administered. Signed By: Josy Berger N.P. <<Signature on File>>
[2021-04-11] MEDS: famotidine 20 mg/2 mL INJ IVP (09:55)
[2021-04-11] MEDS: diphenhydrAMINE 50 mg/mL SDV 1mL 25 MG IV (09:55)
[2021-04-11] MEDS: fosaprepitant 150 MG in sodium chloride 0.9% 150 ML 300 MG IV (09:59)
[2021-04-18 09:01] LABS: Basophils % 0.8 %; Eosinophils % 1.2 %; Hemoglobin 10.6 g/dL (11.7-16.6); Lymphocytes # 0.5 10^3/uL (0.8-4.8); Lymphocytes % 19.8 %; Mean Corpuscular HGB Conc 32.1 g/dL (30.0-36.0); Mean Corpuscular Hemoglobin 27.6 pg (28.0-34.0); Mean Corpuscular Volume 85.9 fl (80-94); Monocytes # 0.1 10^3/uL (0.2-0.9); Neutrophils # 1.91 10^3/uL (1.8-7.7); Neutrophils % 75.4 %; Nucleated Red Blood Cells % 0 %; Platelet Count 134 10^3/cmm (130-400); Red Blood Count 3.84 10^6/uL (4.1-5.3); Red Cell Distribution Width 18.7 % (12.1-15.1); White Blood Count 2.5 10^3/uL (4.0-10.0)
[2021-04-18 09:28] LABS: Alanine Aminotransferase < 5 U/L (0-41); Albumin Level 3.6 g/dL (3.5-5.2); Alkaline Phosphatase 93 IU/L (40-130); Anion Gap 10.7 (5-19); Aspartate Amino Transferase 10 U/L (0-40); Blood Urea Nitrogen 10 mg/dL (8-23); Calcium 8.2 mg/dL (8.5-10.5); Carbon Dioxide 26 mmol/L (22-29); Chloride 95 mmol/L (98-107); Glucose 115 mg/dL (65-115); Osmolality Calculated 266 mOsm/kg (285-295); Potassium 3.7 mmol/L (3.5-5.1); Sodium 128 mmol/L (136-145); Total Bilirubin 0.4 mg/dL (0.15-1.2); Total Protein 6.6 g/dL (6.6-8.7)
[2021-04-18 09:35] LABS: Slide Review Slide Review Perform
[2021-04-18] MEDS: ferric carboxy (IVPB) 750 MG in sodium chloride 0.9% (100 ml) 100 ML 460 MG IV (09:48)
== END 2021-04-23 23:59 | disposition home or self-care (01) ==
LOC: ONCMED 06:57
PROVIDERS: Nurse Practitioner Family; PCP Family Medicine; Visit Provider Internal Medicine Medical Oncology
DX: Z51.12 Encounter for antineoplastic immunotherapy (principal); Z51.11 Encounter for antineoplastic chemotherapy; C34.11 Malignant neoplasm of upper lobe, right bronchus or lung; J98.11 Atelectasis; I35.0 Nonrheumatic aortic (valve) stenosis; Z96.642 Presence of left artificial hip joint; I48.91 Unspecified atrial fibrillation; J44.9 Chronic obstructive pulmonary disease, unspecified; N40.0 Benign prostatic hyperplasia without lower urinary tract symptoms; K40.90 Unilateral inguinal hernia, without obstruction or gangrene, not specified as recurrent; Z79.899 Other long term (current) drug therapy
CPT/HCPCS: 80053; 84443; 85025; 96365; 96367; 96375; 96413; 96417; 99215; J1100; J1200; J1439; J1453; J2469; J3490; J7040; J7050; J9045; J9271; J9305

== ENCOUNTER → 2021-04-27 12:51 | Outpatient (BNVA) | payer MEDICARE, SELFPAY | PROVIDERS: PCP Family Medicine; Visit Provider Nurse Practitioner Family | DX: N13.8 Other obstructive and reflux uropathy (principal); N40.1 Benign prostatic hyperplasia with lower urinary tract symptoms; R31.29 Other microscopic hematuria | CPT/HCPCS: 81003; 87086 ==

== ENCOUNTER 2021-05-22 06:45 | Outpatient (RCR) | payer MEDICARE, SELFPAY ==
[2021-04-25 14:02] LABS: Basophils % 0.6 %; Eosinophils # 0.1 10^3/uL (0.0-0.8); Eosinophils % 6.4 %; Hemoglobin 9.5 g/dL (11.7-16.6); Lymphocytes # 0.6 10^3/uL (0.8-4.8); Lymphocytes % 39.1 %; Mean Corpuscular HGB Conc 32.8 g/dL (30.0-36.0); Mean Corpuscular Hemoglobin 27.8 pg (28.0-34.0); Mean Corpuscular Volume 84.8 fl (80-94); Mean Platelet Volume 9.4 fL (7.4-10.4); Monocytes # 0.2 10^3/uL (0.2-0.9); Monocytes % 15.4 %; Neutrophils % 38.5 %; Nucleated Red Blood Cells % 0 %; Platelet Count 31 10^3/cmm (130-400); Red Blood Count 3.42 10^6/uL (4.1-5.3); Red Cell Distribution Width 17.6 % (12.1-15.1); White Blood Count 1.6 10^3/uL (4.0-10.0)
[2021-04-25 14:36] LABS: Slide Review Slide Review Perform
[2021-05-02 08:44] LABS: Basophils % 0.4 %; Eosinophils % 0.8 %; Hematocrit 28.8 % (42.0-52.0); Hemoglobin 9.5 g/dL (11.7-16.6); Lymphocytes # 0.5 10^3/uL (0.8-4.8); Lymphocytes % 20.5 %; Mean Corpuscular Hemoglobin 27.9 pg (28.0-34.0); Mean Corpuscular Volume 84.7 fl (80-94); Monocytes # 0.4 10^3/uL (0.2-0.9); Monocytes % 18.4 %; Neutrophils # 1.41 10^3/uL (1.8-7.7); Neutrophils % 59.1 %; Nucleated Red Blood Cells % 0 %; Platelet Count 135 10^3/cmm (130-400); Red Cell Distribution Width 18.6 % (12.1-15.1); White Blood Count 2.4 10^3/uL (4.0-10.0)
[2021-05-02 09:06] LABS: Alanine Aminotransferase 6 U/L (0-41); Albumin Level 3.8 g/dL (3.5-5.2); Alkaline Phosphatase 108 IU/L (40-130); Anion Gap 13.7 (5-19); Aspartate Amino Transferase 8 U/L (0-40); Blood Urea Nitrogen 7 mg/dL (8-23); Calcium 8.9 mg/dL (8.5-10.5); Carbon Dioxide 24 mmol/L (22-29); Chloride 96 mmol/L (98-107); Globulin 2.8 g/dL (1.3-4.6); Glucose 110 mg/dL (65-115); Osmolality Calculated 269 mOsm/kg (285-295); Potassium 3.7 mmol/L (3.5-5.1); Sodium 130 mmol/L (136-145); Total Bilirubin 0.3 mg/dL (0.15-1.2); Total Protein 6.6 g/dL (6.6-8.7)
--- NOTE | 2021-05-05 10:35 | ONC FU_ITS ---
Dr. Caraballo Patient Follow-Up Note Patient: Elliott Anderson Unit #: [id number]: 1945 Dicatated By: Roger Caraballo M.D.Date of Visit:May 02, 2021 Onc Med Follow-up/Prog Note Chief Complaint: Lung cancer. 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 On 11/02/2020 he was admitted to the hospital with traumatic left hip fracture. It occurred in association with atrial fibrillation/RVR and severe aortic stenosis. Due to the aortic stenosis, he was transferred to [facility] for further management, where he underwent a valvuloplasty procedure followed by left hip hemiarthroplasty. His preoperative evaluation also included chest CT which showed a 2.5 x 2.7 cm spiculated mass in the right upper lobe with extension into the mediastinum and right hilum. Overall the soft tissue mass measured 6.9 x 3.8 cm. The mass was noted to encase and significantly narrow the right lobar and segmental pulmonary arteries and was also noted to encase the right upper lobe bronchus. There were associated small mediastinal left hilar lymph nodes. An additional spiculated nodule measuring 8 mm was noted in the right apex. Other findings included severe emphysematous changes bilaterally. There was complete collapse of the left lower lung secondary to occlusion of the left lower lobe bronchus thought to be related to mucous plugging. CT abdomen/pelvis showed no obvious metastatic disease and there was also no metastatic disease noted on contrast-enhanced head CT scan. On 11/09/2020 he underwent bronchoscopy/EBUS. There were copious secretions found throughout the tracheobronchial tree which were partially obstructing the airway, and nose were suctioned. There is apparently no endobronchial lesion identified. You underwent FNA biopsy of left and right paratracheal and subcarinal lymph nodes. Cytology on the 4L in the subcarinal lymph nodes were negative, but the 4R FNA biopsy was positive for metastatic non-small cell carcinoma. The PD-L1 expression by IHC was negative at < 1%. He was then transferred to [place] for rehabilitation, and he subsequently was able to return home. I had seen him initially on 12/21/2020. His further evaluation included a staging PET/CT on 01/01/2021. 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 This included a left parotid mass measuring 1.6 x 1.2 cm with SUV 7.76 and an additional medial nodular density within the left parotid measuring 8.3 x 13.6 mm with SUV 10.02. A 9.3 mm density either within or anterior to the right parotid had SUV 5.61 and there are multiple additional right parotid lesions with SUVs ranging from 3.13-6.24. A level 2 lymph node just behind the right parotid measuring 8.4 mm was FDG avid with SUV 8.07. A large right hilar mass which was noted to invade the mediastinum and encases the right upper lobe bronchus measured 6.7 x 4.0 cm and was FDG avid with SUV 14.09. A left lower lobe superior segment subpleural nodular density measuring 4.2 x 3.6 cm had SUV 12.18. Left bronchial and hilar lymphadenopathy showed increased metabolic activity with SUVs of 11.16 and 5.50. A spiculated nodule in the right apex anteriorly was FDG negative and an additional spiculated nodule in the right upper lobe measuring 8.4 x 10.4 mm was FDG avid with SUV 3.18. Right carinal lymph nodes measuring 1.2 and 1.7 cm were FDG avid with SUV of 13.55 and 10.57. Overall, the findings were consistent with bilateral pulmonary neoplastic lesions and bilateral neoplastic parotid gland lesions and associated right cervical level 2, left bronchial, left hilar, and right subcarinal lymph node involvement. His evaluation also included next generation sequencing by liquid biopsy which showed no actionable mutations. His medical illnesses, in addition to the aortic stenosis and atrial fibrillation, include COPD and benign prostatic hypertrophy. He has a history of smoking 1 pack of cigarettes daily for about 50 years. He quit smoking in October 2020. INTERIM HISTORY: I had seen him for a follow-up visit on 02/01/2021. At that point he was beginning to show some improvement in his performance status. Treatment for the lung cancer was deferred pending repeat echocardiogram and further recommendations from his cardiac surgeon. The echocardiogram, on 02/09/2021 showed normal left ventricular systolic function with ejection fraction estimated at 60%. There was severe aortic valve calcification and moderate to severe aortic valve stenosis with a mean gradient of 24 mmHg and ERIKA 0.85 cm???. There was mild aortic valve regurgitation. There was no pericardial effusion. He was then seen again on February 14, 2021. 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 CT angiogram of the chest showed significant disease progression of the right upper lobe, right suprahilar, and right middle mediastinal tumor mass. There was associated occlusion of the right upper lobe bronchus and collapse of the right upper lobe and there was associated obstruction of the superior vena cava. Three new large metastatic lesions were noted in the left lower lobe superior segment, largest measuring 5.5 x 4.3 cm. With those findings, he began palliative radiation on an urgent basis. He completed treatment on February 28, 2021, total dose 2700 cGy. For some reason he opted not to take his last treatment. On March 09, 2021 he underwent ultrasound-guided right thoracentesis with removal of 1200 mL of pleural fluid. Cytology was negative. Repeat chest CT on 03/22/2021 showed slight improvement in the superior vena cava obstruction, but there was persistent mass obstructing the bronchus in the right upper lobe with complete right upper lobe collapse. A moderate right pleural effusion was noted to have increased. Bilateral hilar adenopathy was slightly improved. The left lower lobe metastatic lesions appeared stable. I had seen him for a follow-up visit on 03/15/2021. At that point his symptoms had improved somewhat. He still had fairly marginal performance status, but he was motivated to continue with further treatment. With the PD-L1 negative tumor, he was given the option to have a trial of systemic therapy with carboplatin/pemetrexed in combination with pembrolizumab. Due to his superior vena cava obstruction and poor peripheral venous access, he underwent placement of a femoral vein Port-A-Cath. He then began cycle 1 of carboplatin/pemetrexed/pembrolizumab on 04/11/2021. During that time, he also was given parenteral iron replacement for iron deficiency anemia. At day 15 he was neutropenic, ANC 600. He also had moderately severe thrombocytopenia, platelet count 31,000. He was given prophylactic antibiotic coverage with Levaquin. He is seen for a follow-up visit. He has not felt very good generally. He says that since starting the Levaquin he has felt blurry eyed and he also has had loose stools. His appetite has been lousy. Energy has not been too good, but he is still up and around. ECOG score is 2. He has not had fever or night sweats. He has not had sore mouth or throat. He has just a little cough, mainly at night. He says his breathing is not bad, but he is on oxygen. He does not complain of chest pain. He has no other GI complaints. He has frequent urination. He has no significant joint or bone pain. He does not complain of headache. He sometimes gets lightheaded. He has no numbness/paresthesia or other focal neurologic symptoms. Medications: Apixaban 1 Tablet (of 5 mg) Oral b.i.d., Aspirin 81 1 Tablet (of 81 mg) Tablet, chewable Oral daily, Metoprolol Tartrate 12.5 mg (of 25 mg) Tablet Oral daily, Tamsulosin HCl 1 Capsule (of 0.4 mg) Oral b.i.d. Allergies: No Known Allergies. Vital Signs: Performed on May 02, 2021 14:09 Height - 73.00 in Weight - 169.6 lbs (LOW) BSA - 2.01 sq.m BMI - 22.38 Temperature - 98.2 F (LOW) Pulse - 85 /min Respiration - 16 /min BP - 89/54 mm(hg) (LOW) O2 Sat - 97 % Pain - 0 Fatigue - 9 Physical Examination: Constitutional - He appears somewhat weak generally, Eyes - Sclerae nonicteric. Conjunctivae clear, ENMT - No lesions noted in the oral cavity, Hematologic/Lymphatic - No cervical, clavicular, or axillary adenopathy, Respiratory - Lungs show some decrease in air movement bilaterally, worse on the left. There are coarse breath sounds on the right, Cardiovascular - Heart rhythm appears regular. There is a II/ systolic murmur. There is no gallop or rub noted, Abdomen - Soft. Liver and spleen are not enlarged. There is no abdominal mass or ascites noted and there is no inguinal adenopathy, Extremities - Sllight edema, Neurologic - No focal neurologic deficits noted. Lab/Imaging: Test performed on May 02, 2021 08:35 Sodium 130 mmol/L Potassium 3.7 mmol/L Chloride 96 mmol/L CO2 24 mmol/L Anion Gap 13.7 BUN 7 mg/dL Creatinine 0.5 mg/dL Cr Clearance (Est) 143.1600 mL/min Glucose 110 mg/dL Osmolality - Calculated 269 mOsm/kg Calcium 8.9 mg/dL Protein, Total 6.6 g/dL Albumin 3.8 g/dL Globulin 2.8 g/dL Bilirubin, Total 0.3 mg/dL ALT (SGPT) 6 U/L AST (SGOT) 8 U/L Alkaline Phosphatase 108 IU/L WBC 2.4 10 3/uL RBC 3.40 10 6/uL HGB 9.5 g/dL HCT 28.8 % MCV 84.7 fl MCH 27.9 pg MCHC 33.0 g/dL RDW 18.6 % Platelet Count 135 10 3/cmm MPV 9.0 fL Neutrophils 1.41 10 3/uL Lymphocytes 0.5 10 3/uL Monocytes 0.4 10 3/uL Eosinophils 0.0 10 3/uL Basophils 0.0 10 3/uL Neutrophil % 59.1 % Lymphocyte % 20.5 % Monocyte % 18.4 % Eosinophil % 0.8 % Basophils % 0.4 % NRBC % 0 % Problem List: 1. Non-small cell carcinoma involving the upper lobe of the right lung, by clinical evaluation stage at least NICOLE (T4, N3, M1a). 2. He had CT evidence of left lower lobe atelectasis, initially thought to be due to mucous plugging. 3. Aortic stenosis, status post valvuloplasty procedure on 11/06/2020. 4. Traumatic left hip fracture, status post hemiarthroplasty on 11/07/2020. 5. Atrial fibrillation. 6. COPD. 7. Benign prostatic hypertrophy. 8. Right inguinal hernia. 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 He underwent bronchoscopy/EBUS on 11/09/2020. The diagnosis was confirmed by FNA biopsy of station 4R lymph node. The tumor was negative for PD-L1 expression, <1%. CT showed relatively large primary malignancy in the right upper lobe/right hilar area. Staging PET/CT showed FDG avid right hilar mass measuring 6.7 x 4.0 cm. There was associated invasion of the mediastinum. A 4.2 x 3.6 cm left lower lobe mass was also FDG avid. Other findings included bilateral FDG avid parotid lesions. There appeared to be involved cervical level 2, left bronchial, left hilar, and right subcarinal lymph nodes. As such, his disease appears to be stage at least NICOLE (T4, N3, M1a) and possibly IVB to be aware of the parotid lesions represent metastatic disease or an unrelated malignant process. There were no actionable mutations identified on next generation sequencing by liquid biopsy. The PET/CT findings and pathology were reviewed with the patient and his son, and we discussed the clinical implications. He was advised that he would not be a candidate for chemoradiation, and that any treatment would be palliative. He indicated, though, that he did want to pursue treatment aggressively. We discussed the fact that with a PD-L1 negative tumor and with no actionable mutations identified, the best option would be combined chemotherapy/immunotherapy utilizing carboplatin/paclitaxel for the chemotherapy regimen. However, his treatment initially was deferred pending repeat echocardiogram and further recommendations from his cardiovascular surgeon. The echocardiogram showed moderate to severe aortic stenosis but with normal left ventricular systolic function. Following discussion with the cardiovascular surgeon, the plan was to proceed with treatment for the lung cancer and consider aortic valve replacement if he was to have significant response. 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 He has CT angiogram of the chest showed significant disease progression of the right upper lobe, right suprahilar, and right middle mediastinal tumor mass. There was associated occlusion of the right upper lobe bronchus and collapse of the right upper lobe and there was associated obstruction of the superior vena cava. Three new large metastatic lesions were noted in the left lower lobe superior segment, largest measuring 5.5 x 4.3 cm. With those findings, he underwent palliative radiation. He received 9/10 planned fractions, completed on February 28, 2021, total dose 2700 cGy. He did show some symptomatic improvement with the radiation. His performance status was still somewhat marginal, but he was motivated to continue further treatment for the lung cancer. With a PD-L1 negative tumor and with no actionable mutations identified, he was offered the option to have combined chemotherapy/immunotherapy with carboplatin/pemetrexed in combination with pembrolizumab. He began cycle 1 on 04/11/2021. He felt generally weak for the first day after the treatment, but his symptoms had subsequently been improving. At day 15 he had moderately severe neutropenia and thrombocytopenia. He began on prophylactic antibiotic coverage with Levaquin. Since then he has not been feeling as good generally, but most of that he attributes to side effects from the Levaquin. At this point he still has mild neutropenia with absolute neutrophil count 1400. As such, I will delay his cycle 2 treatment for 1 week, and it will be administered with dose reductions in the carboplatin and pemetrexed. As before, he will continue to require close monitoring, as he is at high risk for chemotherapy related toxicities. Signed By: Roger Caraballo M.D. <<Signature on File>>
[2021-05-09 08:36] LABS: Basophils # 0.1 10^3/uL (0.0-0.1); Basophils % 1.3 %; Eosinophils % 0.6 %; Hematocrit 28.6 % (42.0-52.0); Hemoglobin 9.2 g/dL (11.7-16.6); Lymphocytes # 0.5 10^3/uL (0.8-4.8); Lymphocytes % 10.7 %; Mean Corpuscular HGB Conc 32.2 g/dL (30.0-36.0); Mean Corpuscular Hemoglobin 28.7 pg (28.0-34.0); Mean Corpuscular Volume 89.1 fl (80-94); Mean Platelet Volume 8.5 fL (7.4-10.4); Monocytes # 0.9 10^3/uL (0.2-0.9); Monocytes % 19.1 %; Neutrophils # 3.23 10^3/uL (1.8-7.7); Neutrophils % 67.9 %; Nucleated Red Blood Cells % 0 %; Platelet Count 298 10^3/cmm (130-400); Red Blood Count 3.21 10^6/uL (4.1-5.3); Red Cell Distribution Width 21.3 % (12.1-15.1); White Blood Count 4.8 10^3/uL (4.0-10.0)
[2021-05-09 08:57] LABS: Alanine Aminotransferase < 5 U/L (0-41); Albumin Level 3.6 g/dL (3.5-5.2); Alkaline Phosphatase 111 IU/L (40-130); Anion Gap 12.6 (5-19); Aspartate Amino Transferase 11 U/L (0-40); Blood Urea Nitrogen 10 mg/dL (8-23); Calcium 8.8 mg/dL (8.5-10.5); Carbon Dioxide 25 mmol/L (22-29); Chloride 98 mmol/L (98-107); Globulin 3.2 g/dL (1.3-4.6); Glucose 100 mg/dL (65-115); Osmolality Calculated 273 mOsm/kg (285-295); Potassium 3.6 mmol/L (3.5-5.1); Sodium 132 mmol/L (136-145); Total Bilirubin 0.4 mg/dL (0.15-1.2); Total Protein 6.8 g/dL (6.6-8.7)
[2021-05-09] MEDS: palonosetron 0.25 mg/5 mL SDV IV (09:50)
[2021-05-09] MEDS: sodium chloride 0.9% 250 ML 75 ML IV (09:50)
[2021-05-09] MEDS: diphenhydrAMINE 50 mg/mL SDV 1mL 25 MG IV (09:53)
[2021-05-09] MEDS: famotidine 20 mg/2 mL INJ IVP (09:55)
[2021-05-09] MEDS: fosaprepitant 150 MG in sodium chloride 0.9% 150 ML 300 MG IV (10:11)
--- NOTE | 2021-05-09 11:07 | ONC FU_ITS ---
Dr. Caraballo Patient Follow-Up Note Patient: Elliott Anderson Unit #: [id number]: 1945 Dicatated By: Roger Caraballo M.D.Date of Visit:May 09, 2021 Onc Med Follow-up/Prog Note Chief Complaint: Lung cancer. 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 On 11/02/2020 he was admitted to the hospital with traumatic left hip fracture. It occurred in association with atrial fibrillation/RVR and severe aortic stenosis. Due to the aortic stenosis, he was transferred to [facility] for further management, where he underwent a valvuloplasty procedure followed by left hip hemiarthroplasty. His preoperative evaluation also included chest CT which showed a 2.5 x 2.7 cm spiculated mass in the right upper lobe with extension into the mediastinum and right hilum. Overall the soft tissue mass measured 6.9 x 3.8 cm. The mass was noted to encase and significantly narrow the right lobar and segmental pulmonary arteries and was also noted to encase the right upper lobe bronchus. There were associated small mediastinal left hilar lymph nodes. An additional spiculated nodule measuring 8 mm was noted in the right apex. Other findings included severe emphysematous changes bilaterally. There was complete collapse of the left lower lung secondary to occlusion of the left lower lobe bronchus thought to be related to mucous plugging. CT abdomen/pelvis showed no obvious metastatic disease and there was also no metastatic disease noted on contrast-enhanced head CT scan. On 11/09/2020 he underwent bronchoscopy/EBUS. There were copious secretions found throughout the tracheobronchial tree which were partially obstructing the airway, and nose were suctioned. There is apparently no endobronchial lesion identified. You underwent FNA biopsy of left and right paratracheal and subcarinal lymph nodes. Cytology on the 4L in the subcarinal lymph nodes were negative, but the 4R FNA biopsy was positive for metastatic non-small cell carcinoma. The PD-L1 expression by IHC was negative at < 1%. He was then transferred to [place] for rehabilitation, and he subsequently was able to return home. I had seen him initially on 12/21/2020. His further evaluation included a staging PET/CT on 01/01/2021. 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 This included a left parotid mass measuring 1.6 x 1.2 cm with SUV 7.76 and an additional medial nodular density within the left parotid measuring 8.3 x 13.6 mm with SUV 10.02. A 9.3 mm density either within or anterior to the right parotid had SUV 5.61 and there are multiple additional right parotid lesions with SUVs ranging from 3.13-6.24. A level 2 lymph node just behind the right parotid measuring 8.4 mm was FDG avid with SUV 8.07. A large right hilar mass which was noted to invade the mediastinum and encases the right upper lobe bronchus measured 6.7 x 4.0 cm and was FDG avid with SUV 14.09. A left lower lobe superior segment subpleural nodular density measuring 4.2 x 3.6 cm had SUV 12.18. Left bronchial and hilar lymphadenopathy showed increased metabolic activity with SUVs of 11.16 and 5.50. A spiculated nodule in the right apex anteriorly was FDG negative and an additional spiculated nodule in the right upper lobe measuring 8.4 x 10.4 mm was FDG avid with SUV 3.18. Right carinal lymph nodes measuring 1.2 and 1.7 cm were FDG avid with SUV of 13.55 and 10.57. Overall, the findings were consistent with bilateral pulmonary neoplastic lesions and bilateral neoplastic parotid gland lesions and associated right cervical level 2, left bronchial, left hilar, and right subcarinal lymph node involvement. His evaluation also included next generation sequencing by liquid biopsy which showed no actionable mutations. His medical illnesses, in addition to the aortic stenosis and atrial fibrillation, include COPD and benign prostatic hypertrophy. He has a history of smoking 1 pack of cigarettes daily for about 50 years. He quit smoking in October 2020. INTERIM HISTORY: I had seen him for a follow-up visit on 02/01/2021. At that point he was beginning to show some improvement in his performance status. Treatment for the lung cancer was deferred pending repeat echocardiogram and further recommendations from his cardiac surgeon. The echocardiogram, on 02/09/2021 showed normal left ventricular systolic function with ejection fraction estimated at 60%. There was severe aortic valve calcification and moderate to severe aortic valve stenosis with a mean gradient of 24 mmHg and ERIKA 0.85 cm???. There was mild aortic valve regurgitation. There was no pericardial effusion. He was then seen again on February 14, 2021. 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 CT angiogram of the chest showed significant disease progression of the right upper lobe, right suprahilar, and right middle mediastinal tumor mass. There was associated occlusion of the right upper lobe bronchus and collapse of the right upper lobe and there was associated obstruction of the superior vena cava. Three new large metastatic lesions were noted in the left lower lobe superior segment, largest measuring 5.5 x 4.3 cm. With those findings, he began palliative radiation on an urgent basis. He completed treatment on February 28, 2021, total dose 2700 cGy. For some reason he opted not to take his last treatment. On March 09, 2021 he underwent ultrasound-guided right thoracentesis with removal of 1200 mL of pleural fluid. Cytology was negative. Repeat chest CT on 03/22/2021 showed slight improvement in the superior vena cava obstruction, but there was persistent mass obstructing the bronchus in the right upper lobe with complete right upper lobe collapse. A moderate right pleural effusion was noted to have increased. Bilateral hilar adenopathy was slightly improved. The left lower lobe metastatic lesions appeared stable. I had seen him for a follow-up visit on 03/15/2021. At that point his symptoms had improved somewhat. He still had fairly marginal performance status, but he was motivated to continue with further treatment. With the PD-L1 negative tumor, he was given the option to have a trial of systemic therapy with carboplatin/pemetrexed in combination with pembrolizumab. Due to his superior vena cava obstruction and poor peripheral venous access, he underwent placement of a femoral vein Port-A-Cath. He then began cycle 1 of carboplatin/pemetrexed/pembrolizumab on 04/11/2021. During that time, he also was given parenteral iron replacement for iron deficiency anemia. At day 15 he was neutropenic, ANC 600. He also had moderately severe thrombocytopenia, platelet count 31,000. He was given prophylactic antibiotic coverage with Levaquin. As of his follow-up visit last week he did appear to be showing recovery, but his neutrophil count was still low at 1400, and his second cycle was delayed. He is seen for a follow-up visit. He is feeling better, though he still feels a little blurry eyed. He has limited activity, but he does get out. ECOG score is 2. Appetite is variable. He does not have fever or night sweats. He has not had sore mouth or throat. He has very little cough. He says his breathing has been okay. He is not having to use oxygen. He has not had chest pain. He has no GI complaints. He has frequent urination. He has no significant joint or bone pain, and he has no focal neurologic symptoms. Medications: Apixaban 1 Tablet (of 5 mg) Oral b.i.d., Aspirin 81 1 Tablet (of 81 mg) Tablet, chewable Oral daily, Metoprolol Tartrate 12.5 mg (of 25 mg) Tablet Oral daily, Tamsulosin HCl 1 Capsule (of 0.4 mg) Oral b.i.d. Allergies: No Known Allergies. Vital Signs: Performed on May 09, 2021 11:03 Height - 73.00 in Weight - 173.2 lbs (HIGH) BSA - 2.02 sq.m BMI - 22.85 Temperature - 97.5 F (LOW) Pulse - 88 /min Respiration - 16 /min BP - 92/58 mm(hg) O2 Sat - 99 % Pain - 0 Fatigue - 0 Physical Examination: Constitutional - He appears somewhat weak generally, Eyes - Sclerae nonicteric. Conjunctivae clear, ENMT - No lesions noted in the oral cavity, Hematologic/Lymphatic - No cervical, clavicular, or axillary adenopathy, Respiratory - Lungs show some decrease in air movement bilaterally, worse on the left. There are coarse breath sounds bilaterally, Cardiovascular - Heart rhythm is irregular. There is a II/ systolic murmur. There is no gallop or rub noted, Abdomen - Soft. Liver and spleen are not enlarged. There is no abdominal mass or ascites noted and there is no inguinal adenopathy, Extremities - Mild lower extremity edema, Neurologic - No focal neurologic deficits noted. Lab/Imaging: Test performed on May 09, 2021 09:18 Creatinine 0.4 mg/dL Cr Clearance (Est) 178.95 mL/min Test performed on May 09, 2021 08:15 Sodium 132 mmol/L Potassium 3.6 mmol/L Chloride 98 mmol/L CO2 25 mmol/L Anion Gap 12.6 BUN 10 mg/dL Glucose 100 mg/dL Osmolality - Calculated 273 mOsm/kg Calcium 8.8 mg/dL Protein, Total 6.8 g/dL Albumin 3.6 g/dL Globulin 3.2 g/dL Bilirubin, Total 0.4 mg/dL ALT (SGPT) < 5 U/L AST (SGOT) 11 U/L Alkaline Phosphatase 111 IU/L WBC 4.8 10 3/uL RBC 3.21 10 6/uL HGB 9.2 g/dL HCT 28.6 % MCV 89.1 fl MCH 28.7 pg MCHC 32.2 g/dL RDW 21.3 % Platelet Count 298 10 3/cmm MPV 8.5 fL Neutrophils 3.23 10 3/uL Lymphocytes 0.5 10 3/uL Monocytes 0.9 10 3/uL Eosinophils 0.0 10 3/uL Basophils 0.1 10 3/uL Neutrophil % 67.9 % Lymphocyte % 10.7 % Monocyte % 19.1 % Eosinophil % 0.6 % Basophils % 1.3 % NRBC % 0 % Problem List: 1. Non-small cell carcinoma involving the upper lobe of the right lung, by clinical evaluation stage at least NICOLE (T4, N3, M1a). 2. He had CT evidence of left lower lobe atelectasis, initially thought to be due to mucous plugging. 3. Aortic stenosis, status post valvuloplasty procedure on 11/06/2020. 4. Traumatic left hip fracture, status post hemiarthroplasty on 11/07/2020. 5. Atrial fibrillation. 6. COPD. 7. Benign prostatic hypertrophy. 8. Right inguinal hernia. 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 He underwent bronchoscopy/EBUS on 11/09/2020. The diagnosis was confirmed by FNA biopsy of station 4R lymph node. The tumor was negative for PD-L1 expression, <1%. CT showed relatively large primary malignancy in the right upper lobe/right hilar area. Staging PET/CT showed FDG avid right hilar mass measuring 6.7 x 4.0 cm. There was associated invasion of the mediastinum. A 4.2 x 3.6 cm left lower lobe mass was also FDG avid. Other findings included bilateral FDG avid parotid lesions. There appeared to be involved cervical level 2, left bronchial, left hilar, and right subcarinal lymph nodes. As such, his disease appears to be stage at least NICOLE (T4, N3, M1a) and possibly IVB to be aware of the parotid lesions represent metastatic disease or an unrelated malignant process. There were no actionable mutations identified on next generation sequencing by liquid biopsy. The PET/CT findings and pathology were reviewed with the patient and his son, and we discussed the clinical implications. He was advised that he would not be a candidate for chemoradiation, and that any treatment would be palliative. He indicated, though, that he did want to pursue treatment aggressively. We discussed the fact that with a PD-L1 negative tumor and with no actionable mutations identified, the best option would be combined chemotherapy/immunotherapy utilizing carboplatin/paclitaxel for the chemotherapy regimen. However, his treatment initially was deferred pending repeat echocardiogram and further recommendations from his cardiovascular surgeon. The echocardiogram showed moderate to severe aortic stenosis but with normal left ventricular systolic function. Following discussion with the cardiovascular surgeon, the plan was to proceed with treatment for the lung cancer and consider aortic valve replacement if he was to have significant response. 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 He has CT angiogram of the chest showed significant disease progression of the right upper lobe, right suprahilar, and right middle mediastinal tumor mass. There was associated occlusion of the right upper lobe bronchus and collapse of the right upper lobe and there was associated obstruction of the superior vena cava. Three new large metastatic lesions were noted in the left lower lobe superior segment, largest measuring 5.5 x 4.3 cm. With those findings, he underwent palliative radiation. He received 9/10 planned fractions, completed on February 28, 2021, total dose 2700 cGy. He did show some symptomatic improvement with the radiation. His performance status was still somewhat marginal, but he was motivated to continue further treatment for the lung cancer. With a PD-L1 negative tumor and with no actionable mutations identified, he was offered the option to have combined chemotherapy/immunotherapy with carboplatin/pemetrexed in combination with pembrolizumab. He began cycle 1 on 04/11/2021. He felt generally weak for the first day after the treatment, but his symptoms had subsequently been improving. At day 15 he had moderately severe neutropenia and thrombocytopenia. He began on prophylactic antibiotic coverage with Levaquin, which he tolerated rather poorly. His second cycle was delayed due to persistent neutropenia. He has now had adequate recovery. His overall clinical status appears stable. He will proceed with cycle 2 of carboplatin/pemetrexed/pembrolizumab. It will be administered with reductions in the carboplatin and pemetrexed. The pembrolizumab dosage remains the same at 200 mg by IV infusion. His blood counts will be monitored weekly. He returns in 3 weeks. I will plan restaging chest CT prior to the 4th cycle. Signed By: Roger Caraballo M.D. <<Signature on File>>
[2021-05-17 13:15] LABS: Eosinophils % 0.5 %; Hematocrit 23.5 % (42.0-52.0); Hemoglobin 7.8 g/dL (11.7-16.6); Lymphocytes # 0.6 10^3/uL (0.8-4.8); Lymphocytes % 27.9 %; Mean Corpuscular HGB Conc 33.2 g/dL (30.0-36.0); Mean Corpuscular Volume 87.4 fl (80-94); Mean Platelet Volume 9.3 fL (7.4-10.4); Monocytes # 0.1 10^3/uL (0.2-0.9); Neutrophils # 1.32 10^3/uL (1.8-7.7); Neutrophils % 65.6 %; Nucleated Red Blood Cells % 0 %; Platelet Count 154 10^3/cmm (130-400); Red Blood Count 2.69 10^6/uL (4.1-5.3); Red Cell Distribution Width 20.7 % (12.1-15.1)
[2021-05-17 13:40] LABS: Slide Review Slide Review Perform
[2021-05-22] VITALS (11 sets, daily range): BP systolic 97–118; BP diastolic 48–66; PULSE 61–76; RESP 16–17; TEMP 36.4–37; O2SAT 91–99
[2021-05-22 09:22] LABS: Nucleated Red Blood Cells % 0 %; Red Blood Count 2.51 10^6/uL (4.1-5.3)
[2021-05-22 09:27] LABS: Basophils % 0.6 %; Eosinophils % 0.6 %; Hematocrit 22.6 % (42.0-52.0); Hemoglobin 7.2 g/dL (11.7-16.6); Lymphocytes # 0.6 10^3/uL (0.8-4.8); Lymphocytes % 35.7 %; Mean Corpuscular HGB Conc 31.9 g/dL (30.0-36.0); Mean Corpuscular Hemoglobin 28.7 pg (28.0-34.0); Mean Platelet Volume 10.1 fL (7.4-10.4); Monocytes # 0.2 10^3/uL (0.2-0.9); Monocytes % 15.3 %; Neutrophils % 47.2 %; Platelet Count 58 10^3/cmm (130-400); Red Cell Distribution Width 19.9 % (12.1-15.1); White Blood Count 1.6 10^3/uL (4.0-10.0)
[2021-05-22 09:39] LABS: Neutrophils # 0.74 10^3/uL (1.8-7.7); Slide Review Slide Review Perform
[2021-05-22] MEDS: acetaminophen 325 mg Tablet 650 MG PO (12:00)
[2021-05-22] MEDS: sodium chloride 0.9% 250 ML 999 ML IV (12:00)
[2021-05-22] MEDS: diphenhydrAMINE 25 mg Capsule PO (12:20)
[2021-05-22] MEDS: FUROsemide 10 mg/mL SDV 2mL 20 MG IV (14:30)
== END 2021-05-24 23:59 | disposition home or self-care (01) ==
LOC: ONCMED 06:45
PROVIDERS: PCP Family Medicine; Visit Provider Internal Medicine Medical Oncology
DX: Z51.12 Encounter for antineoplastic immunotherapy (principal); Z51.11 Encounter for antineoplastic chemotherapy; C34.11 Malignant neoplasm of upper lobe, right bronchus or lung; J98.11 Atelectasis; I35.0 Nonrheumatic aortic (valve) stenosis; Z96.642 Presence of left artificial hip joint; I48.91 Unspecified atrial fibrillation; J44.9 Chronic obstructive pulmonary disease, unspecified; N40.0 Benign prostatic hyperplasia without lower urinary tract symptoms; K40.90 Unilateral inguinal hernia, without obstruction or gangrene, not specified as recurrent; Z79.899 Other long term (current) drug therapy
CPT/HCPCS: 36430; 36591; 80053; 85025; 86850; 86900; 86920; 96367; 96374; 96375; 96413; 96417; 99215; J1100; J1200; J1453; J1940; J2469; J3490; J7050; J9045; J9271; J9305; P9040

== ENCOUNTER 2021-06-12 06:42 | Outpatient (RCR) | payer MEDICARE, SELFPAY ==
[2021-05-30 09:29] LABS: Basophils % 0.6 %; Eosinophils % 0.6 %; Hematocrit 25.4 % (42.0-52.0); Hemoglobin 8.4 g/dL (11.7-16.6); Lymphocytes # 0.4 10^3/uL (0.8-4.8); Lymphocytes % 22.4 %; Mean Corpuscular HGB Conc 33.1 g/dL (30.0-36.0); Mean Corpuscular Volume 90.7 fl (80-94); Mean Platelet Volume 9.3 fL (7.4-10.4); Monocytes # 0.3 10^3/uL (0.2-0.9); Monocytes % 18.2 %; Neutrophils % 57.6 %; Nucleated Red Blood Cells % 0 %; Platelet Count 116 10^3/cmm (130-400); Red Cell Distribution Width 18.9 % (12.1-15.1); White Blood Count 1.7 10^3/uL (4.0-10.0)
[2021-05-30 09:51] LABS: Alanine Aminotransferase 8 U/L (0-41); Albumin Level 3.7 g/dL (3.5-5.2); Alkaline Phosphatase 92 IU/L (40-130); Anion Gap 14.7 (5-19); Aspartate Amino Transferase 14 U/L (0-40); Blood Urea Nitrogen 10 mg/dL (8-23); Calcium 8.7 mg/dL (8.5-10.5); Carbon Dioxide 24 mmol/L (22-29); Chloride 101 mmol/L (98-107); Globulin 2.8 g/dL (1.3-4.6); Glucose 132 mg/dL (65-115); Osmolality Calculated 283 mOsm/kg (285-295); Potassium 3.7 mmol/L (3.5-5.1); Sodium 136 mmol/L (136-145); Total Bilirubin 0.4 mg/dL (0.15-1.2); Total Protein 6.5 g/dL (6.6-8.7)
[2021-05-30 09:59] LABS: Slide Review Slide Review Perform
[2021-05-30 10:00] LABS: Neutrophils # 0.98 10^3/uL (1.8-7.7)
--- NOTE | 2021-06-04 21:50 | ONC FU_ITS ---
Josy Berger Progress Note Patient: Elliott Anderson Unit #: [id number]: 1945 Dicatated By: Josy Berger N.P.Date of Visit:May 30, 2021 Onc MED Follow-up/Prog Note Chief Complaint: Lung cancer. 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 On 11/02/2020 he was admitted to the hospital with traumatic left hip fracture. It occurred in association with atrial fibrillation/RVR and severe aortic stenosis. Due to the aortic stenosis, he was transferred to [facility] for further management, where he underwent a valvuloplasty procedure followed by left hip hemiarthroplasty. His preoperative evaluation also included chest CT which showed a 2.5 x 2.7 cm spiculated mass in the right upper lobe with extension into the mediastinum and right hilum. Overall the soft tissue mass measured 6.9 x 3.8 cm. The mass was noted to encase and significantly narrow the right lobar and segmental pulmonary arteries and was also noted to encase the right upper lobe bronchus. There were associated small mediastinal left hilar lymph nodes. An additional spiculated nodule measuring 8 mm was noted in the right apex. Other findings included severe emphysematous changes bilaterally. There was complete collapse of the left lower lung secondary to occlusion of the left lower lobe bronchus thought to be related to mucous plugging. CT abdomen/pelvis showed no obvious metastatic disease and there was also no metastatic disease noted on contrast-enhanced head CT scan. On 11/09/2020 he underwent bronchoscopy/EBUS. There were copious secretions found throughout the tracheobronchial tree which were partially obstructing the airway, and nose were suctioned. There is apparently no endobronchial lesion identified. You underwent FNA biopsy of left and right paratracheal and subcarinal lymph nodes. Cytology on the 4L in the subcarinal lymph nodes were negative, but the 4R FNA biopsy was positive for metastatic non-small cell carcinoma. The PD-L1 expression by IHC was negative at < 1%. He was then transferred to [place] for rehabilitation, and he subsequently was able to return home. Dr. Caraballo had seen him initially on 12/21/2020. His further evaluation included a staging PET/CT on 01/01/2021. 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 This included a left parotid mass measuring 1.6 x 1.2 cm with SUV 7.76 and an additional medial nodular density within the left parotid measuring 8.3 x 13.6 mm with SUV 10.02. A 9.3 mm density either within or anterior to the right parotid had SUV 5.61 and there are multiple additional right parotid lesions with SUVs ranging from 3.13-6.24. A level 2 lymph node just behind the right parotid measuring 8.4 mm was FDG avid with SUV 8.07. A large right hilar mass which was noted to invade the mediastinum and encases the right upper lobe bronchus measured 6.7 x 4.0 cm and was FDG avid with SUV 14.09. A left lower lobe superior segment subpleural nodular density measuring 4.2 x 3.6 cm had SUV 12.18. Left bronchial and hilar lymphadenopathy showed increased metabolic activity with SUVs of 11.16 and 5.50. A spiculated nodule in the right apex anteriorly was FDG negative and an additional spiculated nodule in the right upper lobe measuring 8.4 x 10.4 mm was FDG avid with SUV 3.18. Right carinal lymph nodes measuring 1.2 and 1.7 cm were FDG avid with SUV of 13.55 and 10.57. Overall, the findings were consistent with bilateral pulmonary neoplastic lesions and bilateral neoplastic parotid gland lesions and associated right cervical level 2, left bronchial, left hilar, and right subcarinal lymph node involvement. His evaluation also included next generation sequencing by liquid biopsy which showed no actionable mutations. His medical illnesses, in addition to the aortic stenosis and atrial fibrillation, include COPD and benign prostatic hypertrophy. He has a history of smoking 1 pack of cigarettes daily for about 50 years. He quit smoking in October 2020. INTERIM HISTORY: Dr. Caraballo had seen him for a follow-up visit on 02/01/2021. At that point he was beginning to show some improvement in his performance status. Treatment for the lung cancer was deferred pending repeat echocardiogram and further recommendations from his cardiac surgeon. The echocardiogram, on 02/09/2021 showed normal left ventricular systolic function with ejection fraction estimated at 60%. There was severe aortic valve calcification and moderate to severe aortic valve stenosis with a mean gradient of 24 mmHg and ERIKA 0.85 cm???. There was mild aortic valve regurgitation. There was no pericardial effusion. He was then seen again on February 14, 2021. 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 CT angiogram of the chest showed significant disease progression of the right upper lobe, right suprahilar, and right middle mediastinal tumor mass. There was associated occlusion of the right upper lobe bronchus and collapse of the right upper lobe and there was associated obstruction of the superior vena cava. Three new large metastatic lesions were noted in the left lower lobe superior segment, largest measuring 5.5 x 4.3 cm. With those findings, he began palliative radiation on an urgent basis. He completed treatment on February 28, 2021, total dose 2700 cGy. For some reason he opted not to take his last treatment. On March 09, 2021 he underwent ultrasound-guided right thoracentesis with removal of 1200 mL of pleural fluid. Cytology was negative. Repeat chest CT on 03/22/2021 showed slight improvement in the superior vena cava obstruction, but there was persistent mass obstructing the bronchus in the right upper lobe with complete right upper lobe collapse. A moderate right pleural effusion was noted to have increased. Bilateral hilar adenopathy was slightly improved. The left lower lobe metastatic lesions appeared stable. Dr. Caraballo had seen him for a follow-up visit on 03/15/2021. At that point his symptoms had improved somewhat. He still had fairly marginal performance status, but he was motivated to continue with further treatment. With the PD-L1 negative tumor, he was given the option to have a trial of systemic therapy with carboplatin/pemetrexed in combination with pembrolizumab. Due to his superior vena cava obstruction and poor peripheral venous access, he underwent placement of a femoral vein Port-A-Cath. He then began cycle 1 of carboplatin/pemetrexed/pembrolizumab on 04/11/2021. During that time, he also was given parenteral iron replacement for iron deficiency anemia. At day 15 he was neutropenic, ANC 600. He also had moderately severe thrombocytopenia, platelet count 31,000. He was given prophylactic antibiotic coverage with Levaquin. As of his follow-up visit last week he did appear to be showing recovery, but his neutrophil count was still low at 1400, and his second cycle was delayed. Patient presents today for follow-up. He continues to have a moderate amount of fatigue and weakness. Overall he is feeling a little better. His appetite is fair. He denies fever, chills, night sweats. No sinus drainage or sore throat. No shortness of breath, cough, chest pain. No GI or problems. No joint or muscle pain. No headaches or dizziness. Review Of Symptoms: See above. Past Medical History: Aortic stenosis Atrial fibrillation Benign prostatic hypertrophy Chronic obstructive pulmonary disease Past Surgical History: Arthroscopic right knee surgery Bilateral cataract excisions Hernia repair Left knee surgery Bronchoscopy/EBUS in 2020 Balloon valvuloplasty for aortic stenosis in 2020 Left hip hemiarthroplasty in 2020 COVID #1&2 in 2020 Allergies: No Known Allergies. Medications: Apixaban 1 Tablet (of 5 mg) Oral b.i.d. Methenamine Hippurate 1 Tablet (of 1 g) Oral b.i.d. Metoprolol Tartrate 12.5 mg (of 25 mg) Tablet Oral daily Tamsulosin HCl 1 Capsule (of 0.4 mg) Oral b.i.d. Vitamin C 2 Tablet (of 500 mg) Capsule Oral b.i.d. Family History: Mr. Anderson's mother is . Mr. Anderson's father is : alzheimer's disease. His father and his sister both with dementia. He does not know anything about his mother. Social History: Mr. Anderson is . Mr. Anderson no longer smokes. He drinks daily. He consumes 1 drink/day. 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 He has history of smoking 1 pack of cigarettes daily for about 50 years. He quit smoking in October 2020. He says that he used to drink a lot, but he cut down significantly about 6 to 8 months ago. He now drinks 1 beer daily. Physical Examination: Performed on May 30, 2021 12:01: Height - 73.00 in, Weight - 168 lbs (LOW), BSA - 2.00 sq.m, BMI - 22.17, Temperature - 96.9 F (LOW), Pulse - 74 /min, Respiration - 16 /min, BP - 109/63 mm(hg), O2 Sat - 98 %, Pain - 0, and Fatigue - 5. Performance Status: 2 - Ambulatory/capable of all self-care, unable to perform any work activities. Up and about more than 50% of waking hours. (ECOG) Constitutional Alert, cooperative, oriented. Mood and affect appropriate. Appears close to chronological age. Well nourished. Well developed. Head Normocephalic; no scars. Respiratory Lungs are clear to auscultation without rhonchi or wheezing. Cardiovascular Regular rate and rhythm of heart without murmurs, gallops or rubs. Abdomen Non-tender, non-distended, no masses, ascites or hepatosplenomegaly. Good bowel sounds. No guarding or rebound tenderness. Musculoskeletal No tenderness or swelling, normal range of motion without obvious weakness. Psychiatric Alert and oriented times three. Coherent speech. Verbalizes understanding of our discussions today. Laboratory: Test performed on May 30, 2021 09:00 Sodium 136 mmol/L Potassium 3.7 mmol/L Chloride 101 mmol/L CO2 24 mmol/L Anion Gap 14.7 BUN 10 mg/dL Creatinine 0.5 mg/dL Cr Clearance (Est) 143.1600 mL/min Glucose 132 mg/dL Osmolality - Calculated 283 mOsm/kg Calcium 8.7 mg/dL Protein, Total 6.5 g/dL Albumin 3.7 g/dL Globulin 2.8 g/dL Bilirubin, Total 0.4 mg/dL ALT (SGPT) 8 U/L AST (SGOT) 14 U/L Alkaline Phosphatase 92 IU/L WBC 1.7 10 3/uL RBC 2.80 10 6/uL HGB 8.4 g/dL HCT 25.4 % MCV 90.7 fl MCH 30.0 pg MCHC 33.1 g/dL RDW 18.9 % Platelet Count 116 10 3/cmm MPV 9.3 fL Neutrophils 0.98 10 3/uL Lymphocytes 0.4 10 3/uL Monocytes 0.3 10 3/uL Eosinophils 0.0 10 3/uL Basophils 0.0 10 3/uL Neutrophil % 57.6 % Lymphocyte % 22.4 % Monocyte % 18.2 % Eosinophil % 0.6 % Basophils % 0.6 % NRBC % 0 % CBC Slide Review Slide Review Perform SLIDE REVIEW AGREES WITH AUTOMATED REULTS Test performed on May 22, 2021 10:30 ABO & Rh Type # 2 AP Test performed on May 22, 2021 08:50 Irradiated Leuko Red RBC [id number] AP RCLRI XM COMPATIBLE Anti-D Positive Blood Type AP Antibody Screen (Gel) NEGATIVE Test performed on Apr 18, 2021 08:45 TSH 3.80 uIU/mL Test performed on Feb 14, 2021 13:50 NT proBNP 568 pg/mL Iron 33 mcg/dL Iron Binding Capacity (TIBC) 268 mcg/dl % Iron Saturation 12.3 % UIBC 235 mcg/dL Impression: 1. Non-small cell carcinoma involving the upper lobe of the right lung, by clinical evaluation stage at least NICOLE (T4, N3, M1a). 2. He had CT evidence of left lower lobe atelectasis, initially thought to be due to mucous plugging. 3. Aortic stenosis, status post valvuloplasty procedure on 11/06/2020. 4. Traumatic left hip fracture, status post hemiarthroplasty on 11/07/2020. 5. Atrial fibrillation. 6. COPD. 7. Benign prostatic hypertrophy. 8. Right inguinal hernia. 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 He underwent bronchoscopy/EBUS on 11/09/2020. The diagnosis was confirmed by FNA biopsy of station 4R lymph node. The tumor was negative for PD-L1 expression, <1%. CT showed relatively large primary malignancy in the right upper lobe/right hilar area. Staging PET/CT showed FDG avid right hilar mass measuring 6.7 x 4.0 cm. There was associated invasion of the mediastinum. A 4.2 x 3.6 cm left lower lobe mass was also FDG avid. Other findings included bilateral FDG avid parotid lesions. There appeared to be involved cervical level 2, left bronchial, left hilar, and right subcarinal lymph nodes. As such, his disease appears to be stage at least NICOLE (T4, N3, M1a) and possibly IVB to be aware of the parotid lesions represent metastatic disease or an unrelated malignant process. There were no actionable mutations identified on next generation sequencing by liquid biopsy. The PET/CT findings and pathology were reviewed with the patient and his son, and we discussed the clinical implications. He was advised that he would not be a candidate for chemoradiation, and that any treatment would be palliative. He indicated, though, that he did want to pursue treatment aggressively. We discussed the fact that with a PD-L1 negative tumor and with no actionable mutations identified, the best option would be combined chemotherapy/immunotherapy utilizing carboplatin/paclitaxel for the chemotherapy regimen. However, his treatment initially was deferred pending repeat echocardiogram and further recommendations from his cardiovascular surgeon. The echocardiogram showed moderate to severe aortic stenosis but with normal left ventricular systolic function. Following discussion with the cardiovascular surgeon, the plan was to proceed with treatment for the lung cancer and consider aortic valve replacement if he was to have significant response. 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 He has CT angiogram of the chest showed significant disease progression of the right upper lobe, right suprahilar, and right middle mediastinal tumor mass. There was associated occlusion of the right upper lobe bronchus and collapse of the right upper lobe and there was associated obstruction of the superior vena cava. Three new large metastatic lesions were noted in the left lower lobe superior segment, largest measuring 5.5 x 4.3 cm. With those findings, he underwent palliative radiation. He received 9/10 planned fractions, completed on February 28, 2021, total dose 2700 cGy. He did show some symptomatic improvement with the radiation. His performance status was still somewhat marginal, but he was motivated to continue further treatment for the lung cancer. With a PD-L1 negative tumor and with no actionable mutations identified, he was offered the option to have combined chemotherapy/immunotherapy with carboplatin/pemetrexed in combination with pembrolizumab. He began cycle 1 on 04/11/2021. He felt generally weak for the first day after the treatment, but his symptoms had subsequently been improving. At day 15 he had moderately severe neutropenia and thrombocytopenia. He began on prophylactic antibiotic coverage with Levaquin, which he tolerated rather poorly. His second cycle was delayed due to persistent neutropenia. He received his second cycle on 05/09/2021 administered with reductions in the carboplatin and pemetrexed. The pembrolizumab dosage remains the same at 200 mg by IV infusion. Due to pancytopenia cycle 3 of combined chemotherapy immunotherapy with carboplatin, pemetrexed and pembrolizumab will be held. He will follow-up in 1 week with a CBC and CMP. We will plan restaging chest CT prior to the 4th cycle. Signed By: Josy Berger N.P. <<Signature on File>>
[2021-06-06 08:45] LABS: Eosinophils % 0.5 %; Hematocrit 29.5 % (42.0-52.0); Hemoglobin 9.6 g/dL (11.7-16.6); Lymphocytes # 0.6 10^3/uL (0.8-4.8); Lymphocytes % 14.8 %; Mean Corpuscular HGB Conc 32.5 g/dL (30.0-36.0); Mean Corpuscular Hemoglobin 30.9 pg (28.0-34.0); Mean Corpuscular Volume 94.9 fl (80-94); Mean Platelet Volume 8.8 fL (7.4-10.4); Monocytes % 23.2 %; Neutrophils # 2.51 10^3/uL (1.8-7.7); Neutrophils % 59.8 %; Nucleated Red Blood Cells % 0 %; Platelet Count 324 10^3/cmm (130-400); Red Blood Count 3.11 10^6/uL (4.1-5.3); Red Cell Distribution Width 22.3 % (12.1-15.1); White Blood Count 4.2 10^3/uL (4.0-10.0)
[2021-06-06 09:02] LABS: Alanine Aminotransferase 9 U/L (0-41); Albumin Level 3.6 g/dL (3.5-5.2); Alkaline Phosphatase 95 IU/L (40-130); Anion Gap 14.9 (5-19); Aspartate Amino Transferase 14 U/L (0-40); Blood Urea Nitrogen 10 mg/dL (8-23); Carbon Dioxide 25 mmol/L (22-29); Chloride 101 mmol/L (98-107); Glucose 140 mg/dL (65-115); Osmolality Calculated 285 mOsm/kg (285-295); Potassium 3.9 mmol/L (3.5-5.1); Sodium 137 mmol/L (136-145); Total Bilirubin 0.3 mg/dL (0.15-1.2); Total Protein 6.6 g/dL (6.6-8.7)
[2021-06-06] MEDS: famotidine 20 mg/2 mL INJ IVP (10:14)
[2021-06-06] MEDS: sodium chloride 0.9% 250 ML 125 ML IV (10:14)
[2021-06-06] MEDS: diphenhydrAMINE 50 mg/mL SDV 1mL 25 MG IV (10:17)
[2021-06-06] MEDS: palonosetron 0.25 mg/5 mL SDV IV (10:20)
[2021-06-06] MEDS: fosaprepitant 150 MG in sodium chloride 0.9% 150 ML 300 MG IV (10:46)
--- NOTE | 2021-06-06 11:34 | ONC FU_ITS ---
Josy Berger Progress Note Patient: Elliott Anderson Unit #: [id number]: 1945 Dicatated By: Josy Berger N.P.Date of Visit:Jun 06, 2021 Onc MED Follow-up/Prog Note Chief Complaint: Lung cancer. 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 On 11/02/2020 he was admitted to the hospital with traumatic left hip fracture. It occurred in association with atrial fibrillation/RVR and severe aortic stenosis. Due to the aortic stenosis, he was transferred to [facility] for further management, where he underwent a valvuloplasty procedure followed by left hip hemiarthroplasty. His preoperative evaluation also included chest CT which showed a 2.5 x 2.7 cm spiculated mass in the right upper lobe with extension into the mediastinum and right hilum. Overall the soft tissue mass measured 6.9 x 3.8 cm. The mass was noted to encase and significantly narrow the right lobar and segmental pulmonary arteries and was also noted to encase the right upper lobe bronchus. There were associated small mediastinal left hilar lymph nodes. An additional spiculated nodule measuring 8 mm was noted in the right apex. Other findings included severe emphysematous changes bilaterally. There was complete collapse of the left lower lung secondary to occlusion of the left lower lobe bronchus thought to be related to mucous plugging. CT abdomen/pelvis showed no obvious metastatic disease and there was also no metastatic disease noted on contrast-enhanced head CT scan. On 11/09/2020 he underwent bronchoscopy/EBUS. There were copious secretions found throughout the tracheobronchial tree which were partially obstructing the airway, and nose were suctioned. There is apparently no endobronchial lesion identified. You underwent FNA biopsy of left and right paratracheal and subcarinal lymph nodes. Cytology on the 4L in the subcarinal lymph nodes were negative, but the 4R FNA biopsy was positive for metastatic non-small cell carcinoma. The PD-L1 expression by IHC was negative at < 1%. He was then transferred to [facility] for rehabilitation, and he subsequently was able to return home. Dr. Caraballo had seen him initially on 12/21/2020. His further evaluation included a staging PET/CT on 01/01/2021. 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 This included a left parotid mass measuring 1.6 x 1.2 cm with SUV 7.76 and an additional medial nodular density within the left parotid measuring 8.3 x 13.6 mm with SUV 10.02. A 9.3 mm density either within or anterior to the right parotid had SUV 5.61 and there are multiple additional right parotid lesions with SUVs ranging from 3.13-6.24. A level 2 lymph node just behind the right parotid measuring 8.4 mm was FDG avid with SUV 8.07. A large right hilar mass which was noted to invade the mediastinum and encases the right upper lobe bronchus measured 6.7 x 4.0 cm and was FDG avid with SUV 14.09. A left lower lobe superior segment subpleural nodular density measuring 4.2 x 3.6 cm had SUV 12.18. Left bronchial and hilar lymphadenopathy showed increased metabolic activity with SUVs of 11.16 and 5.50. A spiculated nodule in the right apex anteriorly was FDG negative and an additional spiculated nodule in the right upper lobe measuring 8.4 x 10.4 mm was FDG avid with SUV 3.18. Right carinal lymph nodes measuring 1.2 and 1.7 cm were FDG avid with SUV of 13.55 and 10.57. Overall, the findings were consistent with bilateral pulmonary neoplastic lesions and bilateral neoplastic parotid gland lesions and associated right cervical level 2, left bronchial, left hilar, and right subcarinal lymph node involvement. His evaluation also included next generation sequencing by liquid biopsy which showed no actionable mutations. His medical illnesses, in addition to the aortic stenosis and atrial fibrillation, include COPD and benign prostatic hypertrophy. He has a history of smoking 1 pack of cigarettes daily for about 50 years. He quit smoking in October 2020. INTERIM HISTORY: Dr. Caraballo had seen him for a follow-up visit on 02/01/2021. At that point he was beginning to show some improvement in his performance status. Treatment for the lung cancer was deferred pending repeat echocardiogram and further recommendations from his cardiac surgeon. The echocardiogram, on 02/09/2021 showed normal left ventricular systolic function with ejection fraction estimated at 60%. There was severe aortic valve calcification and moderate to severe aortic valve stenosis with a mean gradient of 24 mmHg and ERIKA 0.85 cm???. There was mild aortic valve regurgitation. There was no pericardial effusion. He was then seen again on February 14, 2021. 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 CT angiogram of the chest showed significant disease progression of the right upper lobe, right suprahilar, and right middle mediastinal tumor mass. There was associated occlusion of the right upper lobe bronchus and collapse of the right upper lobe and there was associated obstruction of the superior vena cava. Three new large metastatic lesions were noted in the left lower lobe superior segment, largest measuring 5.5 x 4.3 cm. With those findings, he began palliative radiation on an urgent basis. He completed treatment on February 28, 2021, total dose 2700 cGy. For some reason he opted not to take his last treatment. On March 09, 2021 he underwent ultrasound-guided right thoracentesis with removal of 1200 mL of pleural fluid. Cytology was negative. Repeat chest CT on 03/22/2021 showed slight improvement in the superior vena cava obstruction, but there was persistent mass obstructing the bronchus in the right upper lobe with complete right upper lobe collapse. A moderate right pleural effusion was noted to have increased. Bilateral hilar adenopathy was slightly improved. The left lower lobe metastatic lesions appeared stable. Dr. Caraballo had seen him for a follow-up visit on 03/15/2021. At that point his symptoms had improved somewhat. He still had fairly marginal performance status, but he was motivated to continue with further treatment. With the PD-L1 negative tumor, he was given the option to have a trial of systemic therapy with carboplatin/pemetrexed in combination with pembrolizumab. Due to his superior vena cava obstruction and poor peripheral venous access, he underwent placement of a femoral vein Port-A-Cath. He then began cycle 1 of carboplatin/pemetrexed/pembrolizumab on 04/11/2021. During that time, he also was given parenteral iron replacement for iron deficiency anemia. At day 15 he was neutropenic, ANC 600. He also had moderately severe thrombocytopenia, platelet count 31,000. He was given prophylactic antibiotic coverage with Levaquin. As of his follow-up visit last week he did appear to be showing recovery, but his neutrophil count was still low at 1400, and his second cycle was delayed. Patient presents today for follow-up. He states he has been feeling pretty good he does have moderate fatigue. He is able to ambulate small distances using his walker but he fatigues easily. His appetite has been fair. No fever, chills, night sweats. No sinus drainage or mouth sores. No shortness of breath, cough, chest pain. He does have problems with some constipation but he takes [id number] medication which helps control it. He denies joint or bone pain. No headaches or dizziness. Review Of Symptoms: See above. Past Medical History: Aortic stenosis Atrial fibrillation Benign prostatic hypertrophy Chronic obstructive pulmonary disease Past Surgical History: Arthroscopic right knee surgery Bilateral cataract excisions Hernia repair Left knee surgery Bronchoscopy/EBUS in 2020 Balloon valvuloplasty for aortic stenosis in 2020 Left hip hemiarthroplasty in 2020 COVID #1&2 in 2020 Allergies: No Known Allergies. Medications: Apixaban 1 Tablet (of 5 mg) Oral b.i.d. Methenamine Hippurate 1 Tablet (of 1 g) Oral b.i.d. Metoprolol Tartrate 12.5 mg (of 25 mg) Tablet Oral daily Tamsulosin HCl 1 Capsule (of 0.4 mg) Oral b.i.d. Vitamin C 2 Tablet (of 500 mg) Capsule Oral b.i.d. Family History: Mr. Anderson's mother is . Mr. Anderson's father is : alzheimer's disease. His father and his sister both with dementia. He does not know anything about his mother. Social History: Mr. Anderson is . Mr. Anderson no longer smokes. He drinks daily. He consumes 1 drink/day. 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 He has history of smoking 1 pack of cigarettes daily for about 50 years. He quit smoking in October 2020. He says that he used to drink a lot, but he cut down significantly about 6 to 8 months ago. He now drinks 1 beer daily. Physical Examination: Performed on Jun 06, 2021 10:30: Height - 73.00 in, Weight - 168.4 lbs (HIGH), BSA - 2.00 sq.m, BMI - 22.22, Temperature - 97.4 F (LOW), Pulse - 71 /min, Respiration - 16 /min, BP - 114/62 mm(hg), O2 Sat - 99 %, Pain - 0, and Fatigue - 4. Performance Status: 2 - Ambulatory/capable of all self-care, unable to perform any work activities. Up and about more than 50% of waking hours. (ECOG) Constitutional Alert, cooperative, oriented. Mood and affect appropriate. Appears close to chronological age. Well nourished. Well developed. Head Normocephalic; no scars. Respiratory Lungs are clear to auscultation without rhonchi or wheezing. Cardiovascular Regular rate and rhythm of heart without murmurs, gallops or rubs. Abdomen Non-tender, non-distended, no masses, ascites or hepatosplenomegaly. Good bowel sounds. No guarding or rebound tenderness. Extremities No edema Musculoskeletal Generalized weakness Psychiatric Alert and oriented times three. Coherent speech. Verbalizes understanding of our discussions today. Laboratory: Test performed on Jun 06, 2021 08:30 Sodium 137 mmol/L Potassium 3.9 mmol/L Chloride 101 mmol/L CO2 25 mmol/L Anion Gap 14.9 BUN 10 mg/dL Creatinine 0.5 mg/dL Cr Clearance (Est) 143.1600 mL/min Glucose 140 mg/dL Osmolality - Calculated 285 mOsm/kg Calcium 9.0 mg/dL Protein, Total 6.6 g/dL Albumin 3.6 g/dL Globulin 3.0 g/dL Bilirubin, Total 0.3 mg/dL ALT (SGPT) 9 U/L AST (SGOT) 14 U/L Alkaline Phosphatase 95 IU/L WBC 4.2 10 3/uL RBC 3.11 10 6/uL HGB 9.6 g/dL HCT 29.5 % MCV 94.9 fl MCH 30.9 pg MCHC 32.5 g/dL RDW 22.3 % Platelet Count 324 10 3/cmm MPV 8.8 fL Neutrophils 2.51 10 3/uL Lymphocytes 0.6 10 3/uL Monocytes 1.0 10 3/uL Eosinophils 0.0 10 3/uL Basophils 0.0 10 3/uL Neutrophil % 59.8 % Lymphocyte % 14.8 % Monocyte % 23.2 % Eosinophil % 0.5 % Basophils % 1.0 % NRBC % 0 % Test performed on May 30, 2021 09:00 CBC Slide Review Slide Review Perform SLIDE REVIEW AGREES WITH AUTOMATED REULTS Test performed on May 22, 2021 10:30 ABO & Rh Type # 2 AP Test performed on May 22, 2021 08:50 Irradiated Leuko Red RBC [id number] AP RCLRI XM COMPATIBLE Anti-D Positive Blood Type AP Antibody Screen (Gel) NEGATIVE Test performed on Apr 18, 2021 08:45 TSH 3.80 uIU/mL Test performed on Feb 14, 2021 13:50 NT proBNP 568 pg/mL Iron 33 mcg/dL Iron Binding Capacity (TIBC) 268 mcg/dl % Iron Saturation 12.3 % UIBC 235 mcg/dL Impression: 1. Non-small cell carcinoma involving the upper lobe of the right lung, by clinical evaluation stage at least NICOLE (T4, N3, M1a). 2. He had CT evidence of left lower lobe atelectasis, initially thought to be due to mucous plugging. 3. Aortic stenosis, status post valvuloplasty procedure on 11/06/2020. 4. Traumatic left hip fracture, status post hemiarthroplasty on 11/07/2020. 5. Atrial fibrillation. 6. COPD. 7. Benign prostatic hypertrophy. 8. Right inguinal hernia. 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 He underwent bronchoscopy/EBUS on 11/09/2020. The diagnosis was confirmed by FNA biopsy of station 4R lymph node. The tumor was negative for PD-L1 expression, <1%. CT showed relatively large primary malignancy in the right upper lobe/right hilar area. Staging PET/CT showed FDG avid right hilar mass measuring 6.7 x 4.0 cm. There was associated invasion of the mediastinum. A 4.2 x 3.6 cm left lower lobe mass was also FDG avid. Other findings included bilateral FDG avid parotid lesions. There appeared to be involved cervical level 2, left bronchial, left hilar, and right subcarinal lymph nodes. As such, his disease appears to be stage at least NICOLE (T4, N3, M1a) and possibly IVB to be aware of the parotid lesions represent metastatic disease or an unrelated malignant process. There were no actionable mutations identified on next generation sequencing by liquid biopsy. The PET/CT findings and pathology were reviewed with the patient and his son, and we discussed the clinical implications. He was advised that he would not be a candidate for chemoradiation, and that any treatment would be palliative. He indicated, though, that he did want to pursue treatment aggressively. We discussed the fact that with a PD-L1 negative tumor and with no actionable mutations identified, the best option would be combined chemotherapy/immunotherapy utilizing carboplatin/paclitaxel for the chemotherapy regimen. However, his treatment initially was deferred pending repeat echocardiogram and further recommendations from his cardiovascular surgeon. The echocardiogram showed moderate to severe aortic stenosis but with normal left ventricular systolic function. Following discussion with the cardiovascular surgeon, the plan was to proceed with treatment for the lung cancer and consider aortic valve replacement if he was to have significant response. 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 He has CT angiogram of the chest showed significant disease progression of the right upper lobe, right suprahilar, and right middle mediastinal tumor mass. There was associated occlusion of the right upper lobe bronchus and collapse of the right upper lobe and there was associated obstruction of the superior vena cava. Three new large metastatic lesions were noted in the left lower lobe superior segment, largest measuring 5.5 x 4.3 cm. With those findings, he underwent palliative radiation. He received 9/10 planned fractions, completed on February 28, 2021, total dose 2700 cGy. He did show some symptomatic improvement with the radiation. His performance status was still somewhat marginal, but he was motivated to continue further treatment for the lung cancer. With a PD-L1 negative tumor and with no actionable mutations identified, he was offered the option to have combined chemotherapy/immunotherapy with carboplatin/pemetrexed in combination with pembrolizumab. He began cycle 1 on 04/11/2021. He felt generally weak for the first day after the treatment, but his symptoms had subsequently been improving. At day 15 he had moderately severe neutropenia and thrombocytopenia. He began on prophylactic antibiotic coverage with Levaquin, which he tolerated rather poorly. His second cycle was delayed due to persistent neutropenia. He received his second cycle on 05/09/2021 administered with reductions in the carboplatin and pemetrexed. The pembrolizumab dosage remains the same at 200 mg by IV infusion. Due to pancytopenia cycle 3 of combined chemotherapy immunotherapy with carboplatin, pemetrexed and pembrolizumab was held. He presents today for follow-up. His labs are stable with WBC at 4.2 platelet count 324,000 and ANC 2.51. We will proceed with treatment today with Alimta carboplatin and Keytruda. We had planned on giving him Neulasta but insurance would not approve it. He will return to the clinic in 1 week with CBC and CMP Signed By: Josy Berger N.Sandip. <<Signature on File>>
[2021-06-12 10:14] LABS: Basophils % 1.2 %; Hematocrit 25.4 % (42.0-52.0); Hemoglobin 8.5 g/dL (11.7-16.6); Lymphocytes # 0.4 10^3/uL (0.8-4.8); Lymphocytes % 12.5 %; Mean Corpuscular HGB Conc 33.5 g/dL (30.0-36.0); Mean Corpuscular Hemoglobin 31.4 pg (28.0-34.0); Mean Corpuscular Volume 93.7 fl (80-94); Monocytes # 0.1 10^3/uL (0.2-0.9); Monocytes % 2.3 %; Neutrophils # 2.87 10^3/uL (1.8-7.7); Neutrophils % 83.4 %; Nucleated Red Blood Cells % 0 %; Platelet Count 210 10^3/cmm (130-400); Red Blood Count 2.71 10^6/uL (4.1-5.3); White Blood Count 3.4 10^3/uL (4.0-10.0)
[2021-06-12 10:31] LABS: Alanine Aminotransferase 10 U/L (0-41); Albumin Level 3.7 g/dL (3.5-5.2); Alkaline Phosphatase 81 IU/L (40-130); Anion Gap 13.1 (5-19); Aspartate Amino Transferase 15 U/L (0-40); Blood Urea Nitrogen 11 mg/dL (8-23); Carbon Dioxide 26 mmol/L (22-29); Chloride 97 mmol/L (98-107); Globulin 2.3 g/dL (1.3-4.6); Glucose 100 mg/dL (65-115); Osmolality Calculated 273 mOsm/kg (285-295); Potassium 4.1 mmol/L (3.5-5.1); Sodium 132 mmol/L (136-145); Total Bilirubin 0.6 mg/dL (0.15-1.2)
[2021-06-12 10:46] LABS: Slide Review Slide Review Perform
== END 2021-06-23 23:59 | disposition home or self-care (01) ==
LOC: ONCMED 06:42
PROVIDERS: PCP Family Medicine; Visit Provider Nurse Practitioner Family
DX: Z51.12 Encounter for antineoplastic immunotherapy (principal); Z51.11 Encounter for antineoplastic chemotherapy; C34.11 Malignant neoplasm of upper lobe, right bronchus or lung; J98.11 Atelectasis; I35.0 Nonrheumatic aortic (valve) stenosis; Z96.642 Presence of left artificial hip joint; I48.91 Unspecified atrial fibrillation; J44.9 Chronic obstructive pulmonary disease, unspecified; N40.0 Benign prostatic hyperplasia without lower urinary tract symptoms; K40.90 Unilateral inguinal hernia, without obstruction or gangrene, not specified as recurrent; Z79.899 Other long term (current) drug therapy
CPT/HCPCS: 36591; 80053; 81003; 85025; 86850; 86900; 96367; 96375; 96413; 96417; 99215; J1100; J1200; J1453; J2469; J3490; J7050; J9045; J9271; J9305

== ENCOUNTER 2021-07-24 12:00 | Oncology outpatient (recurring) (ONCR) | payer MEDICARE, SELFPAY ==
[2021-06-27] VITALS (11 sets, daily range): BP systolic 87–119; BP diastolic 48–66; PULSE 62–78; RESP 14–20; TEMP 36.3–36.8; O2SAT 94–99
[2021-06-27 08:49] LABS: Eosinophils % 0.5 %; Lymphocytes # 0.5 10^3/uL (0.8-4.8); Lymphocytes % 26.4 %; Mean Corpuscular HGB Conc 32.7 g/dL (30.0-36.0); Mean Corpuscular Hemoglobin 33.8 pg (28.0-34.0); Mean Corpuscular Volume 103.1 fl (80-94); Mean Platelet Volume 9.6 fL (7.4-10.4); Monocytes # 0.4 10^3/uL (0.2-0.9); Monocytes % 21.4 %; Neutrophils # 1.03 10^3/uL (1.8-7.7); Neutrophils % 51.2 %; Nucleated Red Blood Cells % 1.5 %; Platelet Count 93 10^3/cmm (130-400); Red Cell Distribution Width 23.4 % (12.1-15.1)
[2021-06-27 09:10] LABS: Alanine Aminotransferase < 5 U/L (0-41); Albumin Level 3.6 g/dL (3.5-5.2); Alkaline Phosphatase 83 IU/L (40-130); Anion Gap 15.4 (5-19); Aspartate Amino Transferase 10 U/L (0-40); Blood Urea Nitrogen 13 mg/dL (8-23); Calcium 8.9 mg/dL (8.5-10.5); Carbon Dioxide 23 mmol/L (22-29); Chloride 102 mmol/L (98-107); Globulin 2.9 g/dL (1.3-4.6); Glucose 150 mg/dL (65-115); Iron 97 ug/dL (59-158); Osmolality Calculated 287 mOsm/kg (285-295); Percent Saturation 46.8 % (20-50); Potassium 3.4 mmol/L (3.5-5.1); Sodium 137 mmol/L (136-145); Total Bilirubin 0.4 mg/dL (0.15-1.2); Total Iron Binding Capacity 207 mcg/dl; Total Protein 6.5 g/dL (6.6-8.7); Unsaturated Iron Binding 110 ug/dL (112-347)
[2021-06-27 09:36] LABS: Ferritin 1388 ng/mL (30-400)
[2021-06-27 09:51] LABS: Hemoglobin 5.4 g/dL (11.7-16.6); Slide Review Slide Review Perform
[2021-06-27 09:52] LABS: Hematocrit 16.5 % (42.0-52.0)
[2021-06-27 10:44] LABS: Reticulocyte % 6.2 % (0.5-2.0)
[2021-06-27 10:59] LABS: Lactate Dehydrogenase 184 U/L (135-225)
[2021-06-27] MEDS: acetaminophen 325 mg Tablet 650 MG PO (11:51)
[2021-06-27] MEDS: diphenhydrAMINE 50 mg/mL SDV 1mL 25 MG IVP (12:09)
[2021-06-27] MEDS: sodium chloride 0.9% 250 ML IV (12:09)
--- NOTE | 2021-07-09 11:46 | CT_ITS ---
WS: [id number] CT CHEST, ABDOMEN AND PELVIS WITHOUT CONTRAST. HISTORY: lung cancer TECHNIQUE: Contiguous 5 mm axial imaging performed through the chest, abdomen and pelvis without IV c ontrast, oral contrast has been provided. Coronal and sagittal reformats chest. Coronal and sagittal reformats through the abdomen and pelvis. All CT scans at [facility] use at least one of thes e dose optimization techniques: automated exposure control; mA and/or kV adjustment per patient size (includes targeted exams where dose is matched to clinical indication); or iterative reconstruction. CONTRAST: None DLP: 1331.08 mGy.cm COMPARISON: 03/22/2021, 11/03/[address]: Moderate to large RIGHT pleural effusion without significant increase in size. Increased in terstitial thickening throughout the remaining RIGHT lung may be lymphangitic spread of tumor. New sp iculated mass at the RIGHT apex measuring 2.3 x 2.1 cm. The previously described mass and collapse of the RIGHT upper lobe has improved. This new spiculated RIGHT upper lobe nodule may have been present on prior examinations but obscured. Previously described masses in the LEFT lower lobe are reidentif ied. These masses are smaller in size than they were on the prior examination. The largest measures 2 .5 x 2.5 cm as compared to 2.9 x 3.6 cm. Large RIGHT paratracheal mass that is obstructing the SVC has significantly decreased in size. The RI GHT paratracheal component now measures 4.5 x 3.1 cm. Obstruction of the RIGHT upper lobe bronchus shepherd s improved. Suspect hilar lymph nodes which are difficult to identified with certainty on this unenha nced study. There are hilar lymph nodes on the prior exam. Mild cardiomegaly. Moderate atheroscleroti c changes within the thoracic aorta. Heavy calcification in the great vessels. Normal size heart. Abdomen CT: On this unenhanced examination no metastatic lesions are identified within the liver. The re is very mild thickening of the LEFT adrenal gland similar to the prior study. Gallbladder is contr acted. No bile duct dilatation. Normal size spleen. Limited visualization of the pancreas. No renal o bstruction. Extensive atherosclerosis within the abdominal aorta and the mesenteric arteries. No evid ence for lymphadenopathy on this noncontrasted examination. No ascites. No GI tract obstruction. Pelvic CT: Patient has a large RIGHT scrotal hernia containing nondilated small bowel loops. A small portion of the cecum is also within the hernia. No free fluid in the pelvis. Status post RIGHT hip arthroplasty. Advanced thoracolumbar degenerative changes. No osteoblastic or osteolytic bone disease. CT/CT chest abd pel wo con IMPRESSION: 1. Moderate to large RIGHT pleural effusion is unchanged. 2. RIGHT upper lobe mass with mediastinal extension has moderately improved. P artial reexpansion of the RIGHT upper lobe. There is a new spiculated mass in t he RIGHT upper lobe which may have been present obscured by the consolidation p reviously described. 3. Mild improvement in the multiple metastatic lesions in the LEFT lower lobe. 4. Extensive atherosclerosis thoracic and abdominal aorta and mesenteric arter ies. 5. Large RIGHT scrotal hernia containing loops of small bowel and colon. 6. Any significant change in mediastinal and hilar lymph nodes is limited with out IV contrast. 7. Cannot confirm metastatic lesions in the liver. Mild thickening of the LEFT adrenal gland is unchanged.
[2021-07-09] MEDS: barium sulfate 450 mL Oral Susp PO (12:19)
[2021-07-11 10:47] LABS: Basophils # 0.1 10^3/uL (0.0-0.1); Eosinophils # 0.1 10^3/uL (0.0-0.8); Eosinophils % 0.8 %; Hematocrit 29.1 % (42.0-52.0); Lymphocytes # 0.8 10^3/uL (0.8-4.8); Lymphocytes % 12.2 %; Mean Corpuscular HGB Conc 30.9 g/dL (30.0-36.0); Mean Corpuscular Hemoglobin 32.3 pg (28.0-34.0); Mean Corpuscular Volume 104.3 fl (80-94); Mean Platelet Volume 9.5 fL (7.4-10.4); Monocytes # 0.9 10^3/uL (0.2-0.9); Monocytes % 14.8 %; Neutrophils # 4.38 10^3/uL (1.8-7.7); Neutrophils % 70.6 %; Nucleated Red Blood Cells % 0 %; Platelet Count 196 10^3/cmm (130-400); Red Blood Count 2.79 10^6/uL (4.1-5.3); Red Cell Distribution Width 19.7 % (12.1-15.1); White Blood Count 6.2 10^3/uL (4.0-10.0)
[2021-07-18 08:50] LABS: Basophils # 0.1 10^3/uL (0.0-0.1); Basophils % 1.2 %; Eosinophils # 0.2 10^3/uL (0.0-0.8); Eosinophils % 2.5 %; Hematocrit 30.7 % (42.0-52.0); Hemoglobin 9.8 g/dL (11.7-16.6); Lymphocytes # 0.7 10^3/uL (0.8-4.8); Lymphocytes % 10.9 %; Mean Corpuscular HGB Conc 31.9 g/dL (30.0-36.0); Mean Corpuscular Hemoglobin 31.9 pg (28.0-34.0); Mean Platelet Volume 9.8 fL (7.4-10.4); Monocytes # 0.7 10^3/uL (0.2-0.9); Monocytes % 10.9 %; Neutrophils # 5.06 10^3/uL (1.8-7.7); Neutrophils % 74.1 %; Nucleated Red Blood Cells % 0 %; Platelet Count 185 10^3/cmm (130-400); Red Blood Count 3.07 10^6/uL (4.1-5.3); Red Cell Distribution Width 17.5 % (12.1-15.1); White Blood Count 6.8 10^3/uL (4.0-10.0)
[2021-07-18 09:26] LABS: Alanine Aminotransferase 6 U/L (0-41); Albumin Level 3.6 g/dL (3.5-5.2); Alkaline Phosphatase 78 IU/L (40-130); Anion Gap 12.2 (5-19); Aspartate Amino Transferase 12 U/L (0-40); Blood Urea Nitrogen 8 mg/dL (8-23); Calcium 8.8 mg/dL (8.5-10.5); Carbon Dioxide 25 mmol/L (22-29); Chloride 100 mmol/L (98-107); Globulin 2.4 g/dL (1.3-4.6); Glucose 106 mg/dL (65-115); Osmolality Calculated 275 mOsm/kg (285-295); Potassium 4.2 mmol/L (3.5-5.1); Sodium 133 mmol/L (136-145); Thyroid Stimulating Hormone 3.91 uIU/mL (0.27-4.20); Total Bilirubin 0.4 mg/dL (0.15-1.2)
[2021-07-18] MEDS: sodium chloride 0.9% 250 ML 75 ML IV (11:57)
[2021-07-18] MEDS: famotidine 20 mg/2 mL INJ IVP (11:58)
[2021-07-18] MEDS: diphenhydrAMINE 50 mg/mL SDV 1mL 25 MG IVP (12:01)
[2021-07-18] MEDS: palonosetron 0.25 mg/5 mL SDV IVP (12:04)
[2021-07-18] MEDS: fosaprepitant 150 MG in sodium chloride 0.9% 150 ML 300 MG IV (12:25)
[2021-07-18] MEDS: pembrolizumab 200 MG in sodium chloride 0.9% 250 ML 516 MG IV (13:04)
[2021-07-18] MEDS: CARBOplatin 750 MG in sodium chloride 0.9% 500 ML 575 MG IV (14:02)
[2021-07-18 15:17] VITALS: BP 111/63; PULSE 67; TEMP 36.4; O2SAT 94
[2021-07-24 12:36] VITALS: BP 104/56; PULSE 73; RESP 16; TEMP 36.4; O2SAT 98
[2021-07-24 12:57] LABS: Basophils % 0.7 %; Eosinophils # 0.1 10^3/uL (0.0-0.8); Eosinophils % 2.6 %; Hematocrit 25.9 % (42.0-52.0); Hemoglobin 8.5 g/dL (11.7-16.6); Lymphocytes # 0.6 10^3/uL (0.8-4.8); Mean Corpuscular HGB Conc 32.8 g/dL (30.0-36.0); Mean Corpuscular Hemoglobin 32.3 pg (28.0-34.0); Mean Corpuscular Volume 98.5 fl (80-94); Mean Platelet Volume 9.9 fL (7.4-10.4); Monocytes # 0.1 10^3/uL (0.2-0.9); Monocytes % 1.3 %; Neutrophils # 3.78 10^3/uL (1.8-7.7); Neutrophils % 82.2 %; Nucleated Red Blood Cells % 0 %; Platelet Count 126 10^3/cmm (130-400); Red Blood Count 2.63 10^6/uL (4.1-5.3); Red Cell Distribution Width 15.9 % (12.1-15.1); White Blood Count 4.6 10^3/uL (4.0-10.0)
[2021-07-24 13:27] LABS: Alanine Aminotransferase 8 U/L (0-41); Albumin Level 3.8 g/dL (3.5-5.2); Alkaline Phosphatase 75 IU/L (40-130); Anion Gap 11.2 (5-19); Aspartate Amino Transferase 13 U/L (0-40); Blood Urea Nitrogen 13 mg/dL (8-23); Calcium 8.8 mg/dL (8.5-10.5); Carbon Dioxide 28 mmol/L (22-29); Chloride 97 mmol/L (98-107); Globulin 2.6 g/dL (1.3-4.6); Glucose 88 mg/dL (65-115); Osmolality Calculated 274 mOsm/kg (285-295); Potassium 4.2 mmol/L (3.5-5.1); Sodium 132 mmol/L (136-145); Total Bilirubin 0.4 mg/dL (0.15-1.2); Total Protein 6.4 g/dL (6.6-8.7)
[2021-07-24 13:32] LABS: Creatinine Clr Calc Pharmacy 87.5496
[2021-07-24 14:56] LABS: Slide Review Slide Review Perform
--- NOTE | 2021-07-24 15:34 | PC.NURSE ---
CBC, CMP results shown to Riley GALVANP and called to pt's grandson Ulisses. Ulisses voiced understanding and voiced no questions at this time. Pt to return to clinic for lab draw 07/31/21/
== END 2021-07-24 23:59 | disposition home or self-care (01) ==
PROVIDERS: Nurse Practitioner; Nurse Practitioner Family; PCP Family Medicine; Visit Provider Internal Medicine Medical Oncology
DX: C34.11 Malignant neoplasm of upper lobe, right bronchus or lung (principal)
CPT/HCPCS: 36430; 36591; 71250; 74176; 80053; 82728; 83010; 83540; 83550; 83615; 84443; 85025; 85045; 86850; 86900; 86920; 96367; 96375; 96413; 96417; 99214; 99215; 99999; J1100; J1200; J1453; J2469; J3490; J7040; J7050; J9045; J9271; J9305; P9040

== ENCOUNTER 2021-08-01 09:00 | Oncology outpatient (recurring) (ONCR) | payer MEDICARE, SELFPAY ==
[2021-07-31 11:13] LABS: Hematocrit 23.3 % (42.0-52.0); Hemoglobin 7.6 g/dL (11.7-16.6); Mean Corpuscular HGB Conc 32.6 g/dL (30.0-36.0); Mean Corpuscular Hemoglobin 31.4 pg (28.0-34.0); Mean Corpuscular Volume 96.3 fl (80-94); Mean Platelet Volume 10.4 fL (7.4-10.4); Platelet Count 33 10^3/cmm (130-400); Red Blood Count 2.42 10^6/uL (4.1-5.3); Red Cell Distribution Width 14.8 % (12.1-15.1); White Blood Count 1.9 10^3/uL (4.0-10.0)
[2021-07-31 11:28] LABS: Alanine Aminotransferase 7 U/L (0-41); Albumin Level 3.6 g/dL (3.5-5.2); Alkaline Phosphatase 80 IU/L (40-130); Aspartate Amino Transferase 13 U/L (0-40); Blood Urea Nitrogen 12 mg/dL (8-23); Calcium 8.7 mg/dL (8.5-10.5); Carbon Dioxide 25 mmol/L (22-29); Chloride 100 mmol/L (98-107); Globulin 2.9 g/dL (1.3-4.6); Glucose 89 mg/dL (65-115); Osmolality Calculated 279 mOsm/kg (285-295); Sodium 135 mmol/L (136-145); Total Bilirubin 0.4 mg/dL (0.15-1.2); Total Protein 6.5 g/dL (6.6-8.7)
[2021-07-31 11:31] LABS: Anion Gap 14.2 (5-19); Potassium 4.2 mmol/L (3.5-5.1)
[2021-07-31 11:49] LABS: Absolute Neutrophil 1.1 10^3/cmm (1.4-6.5); Absolute Segmented Neutrophil 1.1 10/cmm (1.6-7.1); Eosinophils 1 %; Lymphocytes 19 %; Lymphocytes Absolute 0.6 10^3/cmm (1.2-3.4); Monocytes Absolute 0.2 10^3/cmm (0.1-0.6); Platelet Estimate Decreased (Normal); Segmented Neutrophils 59 %; Total Cells Counted 100 (0-100)
[2021-08-01] VITALS (12 sets, daily range): BP systolic 103–124; BP diastolic 49–62; PULSE 63–68; RESP 18; TEMP 36.4–37; O2SAT 94–98
[2021-08-01] MEDS: diphenhydrAMINE 25 mg Capsule PO (08:54)
[2021-08-01] MEDS: acetaminophen 325 mg Tablet 650 MG PO (08:54)
[2021-08-01] MEDS: sodium chloride 0.9% 100 mL Bag 250 ML IV (13:10)
== END 2021-08-23 23:59 | disposition home or self-care (01) ==
PROVIDERS: Nurse Practitioner; PCP Family Medicine; Visit Provider Internal Medicine Medical Oncology
DX: D64.81 Anemia due to antineoplastic chemotherapy (principal); T45.1X5A Adverse effect of antineoplastic and immunosuppressive drugs, initial encounter; C34.11 Malignant neoplasm of upper lobe, right bronchus or lung
CPT/HCPCS: 36430; 36591; 80053; 85007; 85025; 86850; 86900; 86920; P9016

== ENCOUNTER 2021-08-04 06:19 | Inpatient (IN) | payer MEDICARE, SELFPAY ==
[2021-08-04] VITALS (52 sets, daily range): BP systolic 80–111; BP diastolic 49–78; PULSE 69–149; RESP 10–30; TEMP 36.3–37.1; O2SAT 86–100; BMI 22.4
--- NOTE | 2021-08-04 06:43 | CTR_ITS ---
PROCEDURE INFORMATION: Exam: CT Chest With Contrast; Diagnostic Exam date and time: 08/04/2021 7:40 AM Age: 76 years old Clinical indication: Injury or trauma; Fall; Generalized; Blunt trauma (contusions or hematomas); Prior surgery; Surgery date: 6+ months; Surgery type: Lt hip, inguinal port TECHNIQUE: Imaging protocol: Diagnostic computed tomography of the chest with contrast. Radiation optimization: All CT scans at this facility use at least one of these dose optimization techniques: automated exposure control; mA and/or kV adjustment per patient size (includes targeted exams where dose is matched to clinical indication); or iterative reconstruction. Contrast material: OMNIPAQUE 300; Contrast volume: 95 ml; Contrast route: INTRAVENOUS (IV); COMPARISON: [place] [id number] 07/09/2021 1:12 PM RADIATION DOSE METRICS: Total DLP (mGy-cm): 1310.83 FINDINGS: Lungs: Emphysematous disease. Dependent right basilar consolidation, similar to prior exam. Persistent masslike consolidation consolidation in the superior segment of the left lower lobe, similar to prior exam. Area of focal masslike consolidation in the posterior basal segment the left lower lobe decreased in size compared to prior exam now measuring up to 1.6 cm compared to the prior 2.6 cm. Spiculated mass measuring up to 1.9 cm in the anterior segment of the right upper lobe soft tissue extension to the superior medial mediastinal margin and hilar regions, similar to prior exam. Narrowing of the central right upper lobe bronchi, similar to prior exam. Right basilar consolidation favored to be atelectasis. Pleural spaces: Large right-sided pleural effusion. Heart: The heart is within normal limits for size. There is no evidence of pericardial abnormality. No coronary artery calcifications noted. Lymph nodes: Unremarkable. No enlarged lymph nodes. Vasculature: Soft tissue mass in the mediastinum surrounding the SVC causing short segment severe stenosis versus occlusion with multiple venous collaterals along the left chest in diaphragmatic region noted. Bones/joints: Multilevel degenerative changes in the spine. Soft tissues: Unremarkable. PROCEDURE INFORMATION: Exam: CT Abdomen And Pelvis With Contrast Exam date and time: 08/04/2021 7:40 AM Age: 76 years old Clinical indication: Injury or trauma; Fall; Generalized; Blunt trauma (contusions or hematomas); Prior surgery; Surgery date: 6+ months; Surgery type: Lt hip, inguinal port TECHNIQUE: Imaging protocol: Computed tomography of the abdomen and pelvis with contrast. Radiation optimization: All CT scans at this facility use at least one of these dose optimization techniques: automated exposure control; mA and/or kV adjustment per patient size (includes targeted exams where dose is matched to clinical indication); or iterative reconstruction. Contrast material: OMNIPAQUE 300; Contrast volume: 95 ml; Contrast route: INTRAVENOUS (IV); COMPARISON: [place] [id number] 07/09/2021 1:12 PM RADIATION DOSE METRICS: Total DLP (mGy-cm): 1310.83 FINDINGS: Liver: The liver is normal in size and contour. Gallbladder and bile ducts: The gallbladder is distended with normal wall thickness and does not demonstrate calcified gallstones. No intra- or extra-hepatic biliary ductal dilatation. Pancreas: The pancreas appears normal. Spleen: The spleen appears normal. Splenic granulomas noted. Adrenal glands: The adrenals appear normal. Kidneys and ureters: Chronic scarring again noted on the lateral interpolar region of the right kidney. No signs of urinary obstruction. Stomach and bowel: The stomach is not well distended but appears unremarkable. The small bowel loops are not abnormally dilated. The large bowel loops are not abnormally dilated. Appendix: No signs of appendicitis. Intraperitoneal space: Minimal free fluid in the dependent portion of the pelvis. Vasculature: Right-sided common femoral venous port noted with the distal tip in the lower IVC. Prominent atherosclerotic disease at the origin of the superior mesenteric artery and bilateral renal arteries. The aorta is nonaneurysmal. Lymph nodes: There are no enlarged lymph nodes. Urinary bladder: The urinary bladder is not well distended, therefore not well evaluated. Reproductive: Unremarkable as visualized. Bones/joints: Left total hip arthroplasty causing artifact in the pelvis, limiting evaluation. Prominent dystrophic calcifications surrounding the left hip. Fracture in the posterior left inferior pubic rami with extension to the ischium. Multilevel degenerative changes in the spine. Soft tissues: Large right-sided inguinal hernia containing multiple bowel loops (cecum and terminal ileum), similar to prior exam. CT/CT chest abd pel w con* IMPRESSION: 1. No acute traumatic injury identified in the chest. 2. Mass/malignancy again noted in the right hilar and region mediastinum causing SVC stenosis, similar to prior exam. 3. Spiculated mass in the right upper lobe concerning for malignancy, similar to prior exam. 4. Persistent large right-sided pleural effusion, similar to prior exam. 5. Stable and slightly decreased areas of masslike consolidation consolidation in the the left lower lobe. IMPRESSION: 1. Fracture in the posterior left inferior pubic rami and ischium. 2. Large right-sided inguinal hernia containing portions of the colon and small bowel without definitive signs of obstruction. 3. Minimal free fluid in the dependent portion of the pelvis of indeterminate etiology.
--- NOTE | 2021-08-04 06:43 | XRR_ITS ---
PROCEDURE INFORMATION: Exam: XR Right Hip Exam date and time: 08/04/2021 6:58 AM Age: 76 years old Clinical indication: Injury or trauma; Fall; Blunt trauma (contusions or hematomas); Right; Hip; Prior surgery; Surgery type: Port placement for chemotherapy TECHNIQUE: Imaging protocol: XR Right hip. Views: 1 view hip with pelvis when performed. COMPARISON: [place] [id number] 07/09/2021 1:12 PM FINDINGS: Tubes, catheters and devices: Right-sided femoral mass port noted. The distal tip of the port is not in the field of view. Bones/joints: No femoral fracture identified. The hip joint maintains normal alignment. Soft tissues: Unremarkable. XR/XR hip RT 2-3V wo/w pel* [id number] IMPRESSION: No right hip fracture identified.
--- NOTE | 2021-08-04 06:43 | CTR_ITS ---
PROCEDURE INFORMATION: Exam: CT Head Without Contrast Exam date and time: 08/04/2021 7:30 AM Age: 76 years old Clinical indication: Injury or trauma; Fall; Blunt trauma (contusions or hematomas); Without loss of consciousness TECHNIQUE: Imaging protocol: Computed tomography of the head without contrast. Radiation optimization: All CT scans at this facility use at least one of these dose optimization techniques: automated exposure control; mA and/or kV adjustment per patient size (includes targeted exams where dose is matched to clinical indication); or iterative reconstruction. COMPARISON: [place] [id number] 11/08/2020 10:31 AM RADIATION DOSE METRICS: Total DLP (mGy-cm): 1396.26 FINDINGS: Brain: No acute hemorrhage identified. No large territorial areas of hypoattenuation concerning for ischemic infarct identified. No intracranial mass effect. Diffuse cerebral atrophy. Subcortical and periventricular white matter hypoattenuation likely consistent with mild chronic microvascular ischemic disease. Cerebral ventricles: The ventricles are within normal limits. Paranasal sinuses: The visualized sinuses are unremarkable. Mastoid air cells: Fluid in the right mastoid air cells. Bones/joints: The osseous structures are intact. Soft tissues: Unremarkable. CT/CT head wo con* [id number] IMPRESSION: 1. No acute intracranial abnormality identified. 2. Mild chronic microvascular ischemic disease.
--- NOTE | 2021-08-04 06:43 | CTR_ITS ---
PROCEDURE INFORMATION: Exam: CT Cervical Spine Without Contrast Exam date and time: 08/04/2021 7:33 AM Age: 76 years old Clinical indication: Injury or trauma; Fall; Blunt trauma TECHNIQUE: Imaging protocol: Computed tomography images of the cervical spine without contrast. Radiation optimization: All CT scans at this facility use at least one of these dose optimization techniques: automated exposure control; mA and/or kV adjustment per patient size (includes targeted exams where dose is matched to clinical indication); or iterative reconstruction. COMPARISON: CT head wo con* [id number] 08/04/2021 7:30 AM RADIATION DOSE METRICS: Total DLP (mGy-cm): 609.42 FINDINGS: Bones/joints: The cervical spine maintains a normal lordotic curvature. No spondylolisthesis. The vertebral bodies maintain normal height. No fracture identified. Discs/Spinal canal/Neural foramina: Loss of intervertebral disc height in the lower cervical spine with endplate degenerative changes. Multilevel facet arthropathy. Lungs: Large right-sided pleural effusion. Emphysematous disease. Soft tissues: No prevertebral soft tissue swelling identified. CT/CT cervical spin wo con* [id number] IMPRESSION: 1. No acute fracture or traumatic malalignment identified within the cervical spine. 2. Large right-sided pleural effusion.
--- NOTE | 2021-08-04 06:43 | XRR_ITS ---
PROCEDURE INFORMATION: Exam: XR Chest Exam date and time: 08/04/2021 7:08 AM Age: 76 years old Clinical indication: Injury or trauma; Fall; Blunt trauma (contusions or hematomas); Patient HX: HX of lung cancer, currently undergoing chemotherapy TECHNIQUE: Imaging protocol: XR of the chest. Views: 1 view. COMPARISON: [place] [id number] 07/09/2021 1:12 PM FINDINGS: Lungs: Right basilar consolidation. The left lung is clear. Pulmonary scarring noted. Increased density in the right upper lung adjacent to the mediastinum, may correlate with previously noted consolidation/mass. Pleural spaces: Right-sided pleural effusion noted extending along the pleural margin to the apex. Heart/Mediastinum: The cardiomediastinal silhouette is within normal limits. Bones/joints: Unremarkable. XR/XR chest 1V portable [id number] IMPRESSION: 1. Right-sided pleural effusion with right basilar consolidation either atelectasis versus pneumonia. 2. Increased density in the right upper lung adjacent to the mediastinum, may correlate with previously noted consolidation/mass.
[2021-08-04 07:03] LABS: Eosinophils % 1.1 %; Hematocrit 22.8 % (42.0-52.0); Hemoglobin 7.6 g/dL (11.7-16.6); Lymphocytes # 0.3 10^3/uL (0.8-4.8); Lymphocytes % 31.2 %; Mean Corpuscular HGB Conc 33.3 g/dL (30.0-36.0); Mean Corpuscular Hemoglobin 30.8 pg (28.0-34.0); Mean Corpuscular Volume 92.3 fl (80-94); Mean Platelet Volume 10.6 fL (7.4-10.4); Monocytes # 0.1 10^3/uL (0.2-0.9); Neutrophils % 53.7 %; Nucleated Red Blood Cells % 0 %; Red Blood Count 2.47 10^6/uL (4.1-5.3); Red Cell Distribution Width 15.6 % (12.1-15.1)
--- NOTE | 2021-08-04 07:03 | PC.NURSE ---
Report received from IRENE Flower. Pt resting in bed and assessed. Type and screen drawn by IREEN Flower. Continuous cardiac, BP, and SpO2 monitoring continued. Pt currently on 6 LPM via NC. Care assumed.
[2021-08-04 07:10] LABS: Alanine Aminotransferase 15 U/L (0-41); Albumin Level 3.4 g/dL (3.5-5.2); Alkaline Phosphatase 67 IU/L (40-130); Anion Gap 16.2 (5-19); Aspartate Amino Transferase 16 U/L (0-40); Blood Urea Nitrogen 13 mg/dL (8-23); Calcium 8.4 mg/dL (8.5-10.5); Carbon Dioxide 23 mmol/L (22-29); Chloride 99 mmol/L (98-107); Globulin 2.6 g/dL (1.3-4.6); Glucose 131 mg/dL (65-115); Magnesium 1.7 mg/dL (1.7-2.3); Osmolality Calculated 282 mOsm/kg (285-295); Potassium 3.2 mmol/L (3.5-5.1); Sodium 135 mmol/L (136-145); Total Bilirubin 0.6 mg/dL (0.15-1.2)
--- NOTE | 2021-08-04 07:16 | ED_ITS ---
HPI - General Adult General: Chief complaint: General Medical Stated complaint: FALL/AFIB Time Seen by Provider: 08/04/21 06:25 History of Present Illness: Patient is brought in by EMS after a fall this morning. Patient states he got up out of bed and lost his balance and fell. States that he hit his head, however he is not complaining of any pain. When EMS arrived they found the patient to be tachycardic, stat EKG here shows A. fib with RVR. The patient takes Eliquis due to a history of atrial fibrillation. Patient states that he is on chemotherapy for lung cancer. Associated symptoms: Reports palpitations; Deny chest pain, dyspnea, headache(s), nausea, rash or vomiting Review of Systems Const: Denies: fever(s) or body aches Eyes: Denies: change in vision or blurry vision ENMT: Denies: throat pain or odynophagia Card: Reports: palpitations; Denies: chest pain Resp: Denies: dyspnea or productive cough GI: Denies: abdominal pain, nausea or vomiting : Denies: flank pain or dysuria Musc: Reports: back pain; Denies: neck pain Skin/Breast: Denies: rash or pruritus Neuro: Denies: headache(s) or numbness in extremities Psych: Denies: anxiety or change in appetite Endo: Denies: polyuria or excessive sweating PFSH ED PFSH: Medical History Anemia associated with chemotherapy Atrial fibrillation BPH w urinary obs/LUTS Chronic progressive lower urinary tract symptoms consistent with BPH with good response to double dose TAMSULOSIN. 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 Denies family history of Diabetes CAD (coronary artery disease) Clotting disorder Hyperlipidemia Psychiatric illness Chronic kidney disease (CKD) Suicide Anesthesia complication Bleeding disorder Lung disease Cancer Hypertension Stroke Social History Smoking and tobacco status: former smoker Quit status (tobacco): has quit using tobacco Year quit tobacco: 10/2020 Alcohol intake: current Alcohol intake frequency: 0-2 Drinks per Day Lives independently: Yes Marital status: / Current occupational status: retired Physical Exam Const: COMMON NORMALS: no acute distress, patient oriented x3 and alert OTHER: Cachectic HENMT: COMMON NORMALS: normocephalic HEAD & SCALP: normocephalic OTHER: Abrasion to the right scalp Eye: COMMON NORMALS: Equal, round and reactive pupils present and EOMs intact bilaterally PUPIL: Yes Equal, round and reactive pupils present Neck/C-Spine: COMMON NORMALS: full ROM and supple Resp: COMMON NORMALS: normal respiratory effort, No retractions and No use of accessory muscles OTHER: Diminished breath sounds in right base Cardio: OTHER: Tachycardia with an irregularly irregular rhythm GI: COMMON NORMALS: Normal to inspection, nondistended, normoactive bowel reggie nds present, Soft to palpation and non-tender PALPATION: Yes Soft to palp ation Back/Pelvis: COMMON NORMALS: thoracic and lumbar spine normal to inspection and no thoracic nor lumbar tenderness Extremity: OTHER: Right hip tenderness to palpation with decreased range of motion due to pain Neuro: COMMON NORMALS: patient oriented x3 SENSORIUM/ORIENTATION: Yes alert Psych: COMMON NORMALS: mental status grossly normal and cooperative Skin: COMMON NORMALS: no rashes or lesions noted and no wounds GENERAL SKIN EXAM: no rashes or lesions noted Course Vital Signs: Vital signs: Vital Signs Temperature 97.4 F L 08/04/21 06:22 Pulse Rate 149 H 08/04/21 06:22 Respiratory Rate 20 H 08/04/21 06:22 Blood Pressure 80/54 08/04/21 06:22 Pulse Oximetry 95 08/04/21 06:22 MDM - General Adult Medical Decision Making Patient is brought in by EMS after a fall this morning. Patient states he got up out of bed and lost his balance and fell. States that he hit his head, however he is not complaining of any pain. When EMS arrived they found the patient to be tachycardic, stat EKG here shows A. fib with RVR. The patient takes Eliquis due to a history of atrial fibrillation. Patient states that he is on chemotherapy for lung cancer. On physical exam he has some tenderness to palpation of his right hip. Will check labs, CT, x-ray, start diltiazem bolus and drip for atrial for with RVR, and reassess. On reassessment I talked to the patient about the test results. His heart rate is improving on the diltiazem. I discussed the case with the hospitalist, and we will admit for further work-up and treatment. Lab Data : 08/04/21 06:30 08/04/21 06:30 Radiology Impressions Cervical Spine CT 08/04/21 06:43 IMPRESSION: 1. No acute fracture or traumatic malalignment identified within the cervical spine. 2. Large right-sided pleural effusion. Chest X-Ray 08/04/21 06:43 IMPRESSION: 1. Right-sided pleural effusion with right basilar consolidation either atelectasis versus pneumonia. 2. Increased density in the right upper lung adjacent to the mediastinum, may correlate with previously noted consolidation/mass. Chest/Abdomen/Pelvis CT 08/04/21 06:43 IMPRESSION: 1. No acute traumatic injury identified in the chest. 2. Mass/malignancy again noted in the right hilar and region mediastinum causing SVC stenosis, similar to prior exam. 3. Spiculated mass in the right upper lobe concerning for malignancy, similar to prior exam. 4. Persistent large right-sided pleural effusion, similar to prior exam. 5. Stable and slightly decreased areas of masslike consolidation consolidation in the the left lower lobe. IMPRESSION: 1. Fracture in the posterior left inferior pubic rami and ischium. 2. Large right-sided inguinal hernia containing portions of the colon and small bowel without definitive signs of obstruction. 3. Minimal free fluid in the dependent portion of the pelvis of indeterminate etiology. Head CT 08/04/21 06:43 IMPRESSION: 1. No acute intracranial abnormality identified. 2. Mild chronic microvascular ischemic disease. Hip/Pelvis X-Ray 08/04/21 06:43 IMPRESSION: No right hip fracture identified. Laboratory Results WBC 0.9 10^3/uL (4.0-10.0) L* 08/04/21 06:30 RBC 2.47 10^6/uL (4.1-5.3) L 08/04/21 06:30 Hgb 7.6 g/dL (11.7-16.6) L 08/04/21 06:30 Hct 22.8 % (42.0-52.0) L 08/04/21 06:30 MCV 92.3 fl (80-94) 08/04/21 06:30 MCH 30.8 pg (28.0-34.0) 08/04/21 06:30 MCHC 33.3 g/dL (30.0-36.0) 08/04/21 06:30 RDW 15.6 % (12.1-15.1) H 08/04/21 06:30 Plt Count 14 10^3/cmm (130-400) L* 08/04/21 06:30 MPV 10.6 fL (7.4-10.4) H 08/04/21 06:30 Neut % (Auto) 53.7 % 08/04/21 06:30 Lymph % (Auto) 31.2 % 08/04/21 06:30 Letcher % (Auto) 14.0 % 08/04/21 06:30 Eos % (Auto) 1.1 % 08/04/21 06:30 Baso % (Auto) 0.0 % 08/04/21 06:30 Neut # (Auto) 0.50 10^3/uL (1.8-7.7) L* 08/04/21 06:30 Lymph # (Auto) 0.3 10^3/uL (0.8-4.8) L 08/04/21 06:30 [place]cher # (Auto) 0.1 10^3/uL (0.2-0.9) L 08/04/21 06:30 Eos # (Auto) 0.0 10^3/uL (0.0-0.8) 08/04/21 06:30 Baso # (Auto) 0.0 10^3/uL (0.0-0.1) 08/04/21 06:30 Nucleated RBC % (auto) 0 % 08/04/21 06:30 Nucleated RBCs # 0.0 /100WBC 08/04/21 06:30 Sodium 135 mmol/L (136-145) L 08/04/21 06:30 Potassium 3.2 mmol/L (3.5-5.1) L 08/04/21 06:30 Chloride 99 mmol/L (98-107) 08/04/21 06:30 Carbon Dioxide 23 mmol/L (22-29) 08/04/21 06:30 Anion Gap 16.2 (5-19) 08/04/21 06:30 BUN 13 mg/dL (8-23) 08/04/21 06:30 Creatinine 0.5 mg/dL (0.7-1.2) L 08/04/21 06:30 GFR Calculation Not Reportable 08/04/21 06:30 Glucose 131 mg/dL (65-115) H 08/04/21 06:30 Calculated Osmolality 282 mOsm/kg (285-295) L 08/04/21 06:30 Calcium 8.4 mg/dL (8.5-10.5) L 08/04/21 06:30 Magnesium 1.7 mg/dL (1.7-2.3) 08/04/21 06:30 Total Bilirubin 0.6 mg/dL (0.15-1.2) 08/04/21 06:30 AST 16 U/L (0-40) 08/04/21 06:30 ALT 15 U/L (0-41) 08/04/21 06:30 Alkaline Phosphatase 67 IU/L (40-130) 08/04/21 06:30 Total Protein 6.0 g/dL (6.6-8.7) L 08/04/21 06:30 Albumin 3.4 g/dL (3.5-5.2) L 08/04/21 06:30 Globulin 2.6 g/dL (1.3-4.6) 08/04/21 06:30 Blood Type A Positive 08/04/21 07:00 Rho(D) Type Positive 08/04/21 07:00 Antibody Screen Negative 08/04/21 07:00 EKG Data EKG done at 6:34 AM and interpreted at 6:35 AM shows atrial fibrillation with rapid ventricular response, ventricular rate of 126 bpm, no ST segment elevation, left axis deviation: Computer generated interpretation: Cervical Spine CT 08/04/21 06:43 IMPRESSION: 1. No acute fracture or traumatic malalignment identified within the cervical spine. 2. Large right-sided pleural effusion. Chest X-Ray 08/04/21 06:43 IMPRESSION: 1. Right-sided pleural effusion with right basilar consolidation either atelectasis versus pneumonia. 2. Increased density in the right upper lung adjacent to the mediastinum, may correlate with previously noted consolidation/mass. Chest/Abdomen/Pelvis CT 08/04/21 06:43 IMPRESSION: 1. No acute traumatic injury identified in the chest. 2. Mass/malignancy again noted in the right hilar and region mediastinum causing SVC stenosis, similar to prior exam. 3. Spiculated mass in the right upper lobe concerning for malignancy, similar to prior exam. 4. Persistent large right-sided pleural effusion, similar to prior exam. 5. Stable and slightly decreased areas of masslike consolidation consolidation in the the left lower lobe. IMPRESSION: 1. Fracture in the posterior left inferior pubic rami and ischium. 2. Large right-sided inguinal hernia containing portions of the colon and small bowel without definitive signs of obstruction. 3. Minimal free fluid in the dependent portion of the pelvis of indeterminate etiology. Head CT 08/04/21 06:43 IMPRESSION: 1. No acute intracranial abnormality identified. 2. Mild chronic microvascular ischemic disease. Hip/Pelvis X-Ray 08/04/21 06:43 IMPRESSION: No right hip fracture identified. Discharge Plan Discharge Patient Disposition: Admitted As Inpatient Clinical Impression: Atrial fibrillation with rapid ventricular response, Thrombocytopenia, Pleural effusion Condition: Stable Coding Level of Care Code ED Deicer Kit Assembler for Jw Fwd Exam Comprehensive
--- NOTE | 2021-08-04 07:26 | PC.PHAR ---
pt states his grandson erica [phone] helps him with his medications-pts grandson erica states the pt doesnt take folic acid 1mg daily ext med history shows filled 07/27/21 90d/s erica states they didnt pick it up-pt states he hasnt taken his eliquis since friday-erica states he is unsure what all the pt gets from office but states the medications entered are the medications the pt takes at home- office is closed no way to verify what he gets from the cancer treatment center-notes are made in the pharmacy comment
[2021-08-04 07:46] LABS: Slide Review Slide Review Perform
[2021-08-04 07:47] LABS: White Blood Count 0.9 10^3/uL (4.0-10.0)
[2021-08-04 07:49] LABS: Platelet Count 14 10^3/cmm (130-400)
[2021-08-04] MEDS: calcium gluconate 0.9% NaCL 1 GM/50 ML PREMIX IV (07:53)
[2021-08-04] MEDS: iohexol 300 mg/mL 100 mL Btl IV (07:56)
[2021-08-04] MEDS: dilTIAZem 5 mg/mL SDV 5 mL 10 MG IVP (07:58)
--- NOTE | 2021-08-04 10:35 | ECG_ITS ---
[facility] Test Date: 2021-08-04 Pat Name: Elliott Anderson Department: Room[facility] Gender: Male Local Area Network Administrator: : 1945 Requested By: Frankie Carney Order Number: [id number] Nabor MD: Giuliana Mcginnis M.D. Measurements Intervals [place] Rate: 126 P: [place]: QRS: -14 QRSD: 94 T: 78 QT: 305 QTc: 442 Interpretive Statements ATRIAL FLUTTER/TACHYCARDIA WITH RAPID VENTRICULAR RESPONSE MODERATE ST DEPRESSION [0.05+ mV ST DEPRESSION] Compared to ECG 04/05/2021 12:04:55 ST (T wave) deviation now present Sinus rhythm no longer present Myocardial infarct finding no longer present Electronically Signed On 08-04-2021 19:05:51 CDT by Giuliana Mcginnis M.D. [email or web address]
[2021-08-04] MEDS: nicotine 4 mg lozenge MUCOUS MEM (11:18)
[2021-08-04 11:22] LABS: Basophils % 0.7 %; Hematocrit 25.6 % (42.0-52.0); Hemoglobin 8.3 g/dL (11.7-16.6); Lymphocytes # 0.4 10^3/uL (0.8-4.8); Lymphocytes % 25.7 %; Mean Corpuscular HGB Conc 32.4 g/dL (30.0-36.0); Mean Corpuscular Hemoglobin 31.1 pg (28.0-34.0); Mean Corpuscular Volume 95.9 fl (80-94); Mean Platelet Volume 12.4 fL (7.4-10.4); Monocytes # 0.3 10^3/uL (0.2-0.9); Monocytes % 19.1 %; Neutrophils % 51.6 %; Nucleated Red Blood Cells % 0 %; Red Blood Count 2.67 10^6/uL (4.1-5.3); Red Cell Distribution Width 15.6 % (12.1-15.1); White Blood Count 1.4 10^3/uL (4.0-10.0)
[2021-08-04 12:01] LABS: Slide Review Slide Review Perform
[2021-08-04 12:03] LABS: Platelet Count 27 10^3/cmm (130-400)
--- NOTE | 2021-08-04 15:21 | P.HP_ITS ---
Providers/Chief Complaint Admitting Physician: Dae Zacarias Primary Care Provider: Leonard Huerta DO Chief Complaint: FALL/AFIB History of Present Illness Pleasant, hard of hearing 76-year-old gentleman with NSCLC, recently resumed chemotherapy, A. fib, previously on anticoagulation, but states after recent blood transfusion with hematochezia due to which stopped Eliquis himself, COPD, aortic stenosis, BPH is admitted after sustaining a fall at home this morning after getting out of bed and losing his balance. In ER he was noted to be tachycardic, atrial fibrillation with RVR, heart rates 130s-140s., With pancytopenia, with hemoglobin 10.6, platelets 14,000, ANC 500. Afebrile. Without respiratory symptoms. Reports easy bruising, bleeding from few skin tears. Imaging including CT head, C-spine, chest abdomen pelvis with noted large right-sided pleural effusion, mass/malignancy noted in the right hilum region mediastinum causing SVC stenosis similar to prior, spiculated mass upper lobe concerning for malignancy. Persistent large right-sided pleural effusion similar to prior. Stable slightly decreased areas of masslike consolidation in left lower lobe. Fractures noted in posterior left inferior pubic rami and ischium. Large right-sided inguinal hernia containing portions of colon and small bowel without definitive signs of obstruction. Minimal free fluid in the dependent portions of the pelvis of indeterminate etiology. He reports currently having some low back discomfort, otherwise is not bothered by any other symptoms. Small bleeds from skin tears have resolved. He does not have any chest pain or pressure, denies shortness of breath, cough. No headache, nausea vomiting, trouble swallowing or diarrhea. Review of Systems General: Reports: Other (Fall) Const: Denies: fever(s), chills, body aches or malaise Eyes: Denies: change in vision, eye discomfort or eye redness ENMT: Denies: throat pain, oral sores or ear or mastoid pain Card: Denies: chest pain, edema, pre-syncope or dyspnea on exertion Resp: Denies: dyspnea, productive cough, change in phlegm color or hemoptysis GI: Reports: hematochezia (After recent RBC transfusion); Denies: abdominal pain, nausea, vomiting, diarrhea, constipation or melena : Denies: flank pain, difficulty urinating, urinary frequency or hematuria Musc: Denies: back pain, joint swelling or joint redness Skin/Breast: Denies: rash or new lesions Neuro: Denies: headache(s), numbness in extremities, weakness in extremities, dizziness, confusion or seizure-like activity Endo: Denies: polyuria or polydipsia Yohan/Lymph: Reports: easy bruising, easy bleeding and petechiae All/Imm: Denies: urticaria or tongue swelling Medications/Allergies Home Medications Medication Instructions Recorded Confirmed Last Taken Type apixaban 5 mg tablet (Eliquis) 5 mg PO BID 03/09/21 08/04/21 07/31/21 History see pharmacy comment methenamine hippurate 1 gram tablet 1 g PO BID 03/09/21 08/04/21 04/06/21 History metoprolol succinate 25 mg 12.5 mg PO QAM 03/09/21 08/04/21 04/09/21 History tablet,extended release 24 hr tamsulosin 0.4 mg capsule 0.4 mg PO BID 03/09/21 08/04/21 04/06/21 History ascorbic acid (vitamin C) 1,000 mg 1 g PO BID tab 06/12/21 08/04/21 Unknown History tablet magnesium citrate 5 - 10 ml PO QAM 08/04/21 08/04/21 Unknown History Allergies Allergy/AdvReac Type Severity Reaction Status Date / Time No Known Allergies Allergy Verified 08/04/21 07:29 PFSH Acute PFSH: Medical History (Updated 08/04/21 @ 15:41 by Dae Zacarias MD) Anemia associated with chemotherapy Atrial fibrillation BPH w urinary obs/LUTS Chronic progressive lower urinary tract symptoms consistent with BPH with good response to double dose TAMSULOSIN. 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 Denies family history of Diabetes CAD (coronary artery disease) Clotting disorder Hyperlipidemia Psychiatric illness Chronic kidney disease (CKD) Suicide Anesthesia complication Bleeding disorder Lung disease Cancer Hypertension Stroke Social History Smoking and tobacco status: former smoker Quit status (tobacco): has quit using tobacco Year quit tobacco: 10/2020 Alcohol intake: current Alcohol intake frequency: 0-2 Drinks per Day Lives independently: Yes Marital status: / Current occupational status: retired Vitals/I&O/Wt Last Vital Signs Temp 97.4 F L 08/04/21 06:22 Pulse 108 H 08/04/21 09:40 Resp 17 08/04/21 09:40 BP 107/67 08/04/21 09:40 Pulse Ox 98 08/04/21 09:40 08/04/21 08/04/21 08/04/21 06:59 14:59 22:59 Intake Total 59.167 / 59.167 Balance 59.167 / 59.167 Weight last 48 hrs Weight 77.111 kg Physical Exam Const: COMMON NORMALS: alert GENERAL APPEARANCE: cooperative ORIENTATION/CONSCIOUSNESS: Yes awake OTHER: [place] HENMT: COMMON NORMALS: normocephalic, EAC's normal, Normal external nose present and moist oral mucous membranes HEAD & SCALP: normocephalic NOSE: Normal external nose present EXTERNAL AUDITORY CANAL: EAC's normal Neck/C-Spine: COMMON NORMALS: no meningeal signs Chest: CHEST: Yes Symmetrical chest wall rise Resp: COMMON NORMALS: clear to auscultation bilaterally AUSCULTATION: clear to auscultation bilaterally Cardio: COMMON NORMALS: regular rate, regular rhythm and No murmurs present (Cardio) RATE: regular rate RHYTHM: regular rhythm GI: COMMON NORMALS: Normal to inspection, nondistended, normoactive bowel sounds present, Soft to palpation and non-tender PALPATION: Yes Soft to palpation Extremity: COMMON NORMALS: no pedal edema Neuro: COMMON NORMALS: moves all extremities SENSORIUM/ORIENTATION: Yes alert MENINGEAL SIGNS: Yes no meningeal signs Psych: COMMON NORMALS: mental status grossly normal THOUGHT PROCESS: Circumstantial thought process present Skin: COMMON NORMALS: no wounds GENERAL SKIN EXAM: dry skin, ecchymosis and petechiae RASHES: no rashes Data : 08/04/21 10:39 08/04/21 06:30 A&P Assessment and plan (1) Atrial fibrillation with rapid ventricular response: In ER started on Cardizem drip. Blood pressure transiently as low as 80/54, but appears lower due to tachycardia, as per report with improving tachycardia blood pressure appears to be improving. Wean down Cardizem drip. Resume metoprolol 12.5 mg starting now. If blood pressures persistently low, consider digoxin. Give magnesium, potassium replacement. Check TSH. Check troponin and EKG series. After heart rates improve consider TTE. Status: Acute (2) Closed pelvic fracture: After fall, posterior left inferior pubic rami extending to the ischium. Follow-up blood counts, platelet levels, requested platelets to be available in case needing transfusion. Conservative management for now. PT, OT assessment once a little bit more stable. Status: Acute (3) Pancytopenia: Recheck blood count this evening, and then again in the morning given pelvic fractures, anemia, for which he did receive 2 units RBC transfusions on 08/01, also reports hematochezia the same afternoon after which he stopped taking Eliquis. With platelets 16,000, but on recheck 27,000. 2 units of platelets on hold been requested. Neutropenia with absolute neutrophil count 500, recheck 700. Neutropenic precautions and neutropenic diet. Check blood culture. He is afebrile. Check Pro-Pedro Status: Acute (4) Fall: After losing balance after getting up from the bed. With bruising, several skin tears which have now stopped bleeding. With known moderate-severe aortic stenosis. Once he is more stable check orthostatic precautions. PT, OT assessment once will be more stable. If persistent symptoms, consideration of aortic valve repair. Status: Acute (5) Thrombocytopenia: Status: Acute (6) Hematochezia: Reports hematochezia on 08/01 after receiving 2 units RBC transfusion. He stopped Eliquis by himself at this time. Continue to hold anticoagulation. Once neutropenia resolves would benefit from additional assessment by endoscopy. PPI, although low suspicion that it was upper GI bleed Status: Acute (7) Pleural effusion: Large right pleural effusion, stable from prior. Once he is a bit more stable, with improvement in platelets, consider thoracentesis. 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 fib with RVR and gentleman with pancytopenia after fall noted posterior left inferior pubic rami fracture extending to the ischium, recent episode of hematochezia, previously on anticoagulation. 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
[2021-08-04] MEDS: metoprolol succinate ER (24 HR) 25 mg Tablet 12.5 MG PO (15:53)
[2021-08-04] MEDS: pantoprazole 40 mg SDV IVP (15:54)
[2021-08-04] MEDS: lidocaine 1% 5 ML in potassium chloride premix 100 ML 25 ML IV (15:55)
[2021-08-04 16:02] LABS: Procalcitonin 0.49 ng/mL (0-0.5)
[2021-08-04 16:34] LABS: Troponin(5th) Baseline 33 ng/L (0-15)
[2021-08-04] MEDS: tamsulosin 0.4 mg Capsule PO (17:31)
--- NOTE | 2021-08-04 17:44 | ECG_ITS ---
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 Measurements Intervals [place] Rate: 72 P: 23 [place]: 197 QRS: -23 QRSD: 88 T: 90 QT: 360 QTc: 395 Interpretive Statements SINUS RHYTHM BORDERLINE LEFT AXIS DEVIATION [QRS AXIS < -20] NONSPECIFIC T-WAVE ABNORMALITY Compared to ECG 08/04/2021 06:34:31 T-wave abnormality now present Atrial flutter no longer present ST (T wave) deviation no longer present Electronically Signed On 08-04-2021 19:09:17 CDT by Giuliana Mcginnis M.D. [id number]
[2021-08-04 18:24] LABS: Hemoglobin 6.7 g/dL (11.7-16.6); Lymphocytes # 0.4 10^3/uL (0.8-4.8); Mean Corpuscular HGB Conc 35.1 g/dL (30.0-36.0); Mean Corpuscular Hemoglobin 31.9 pg (28.0-34.0); Monocytes # 0.1 10^3/uL (0.2-0.9); Monocytes % 13.3 %; Neutrophils % 46.7 %; Nucleated Red Blood Cells % 0 %; Red Cell Distribution Width 15.2 % (12.1-15.1); White Blood Count 1.1 10^3/uL (4.0-10.0)
[2021-08-04 18:50] LABS: Mean Platelet Volume 10.3 fL (7.4-10.4)
[2021-08-04 18:52] LABS: Slide Review Slide Review Perform
[2021-08-04 18:53] LABS: Hematocrit 19.1 % (42.0-52.0); Platelet Count 14 10^3/cmm (130-400); Troponin 5 2HR 34.29 ng/L (0-15)
[2021-08-04 18:54] LABS: Neutrophils # 0.49 10^3/uL (1.8-7.7)
[2021-08-04 19:06] LABS: Troponin 5 2HR Delta 1.29 ABS# (0-10)
[2021-08-04] MEDS: sodium chloride 0.9% (100 ml) 100 ML 10 ML (21:15)
--- NOTE | 2021-08-04 21:44 | ECG_ITS ---
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 Measurements Intervals [place] Rate: 71 P: 78 [place]: 193 QRS: -12 QRSD: 106 T: 57 QT: 382 QTc: 417 Interpretive Statements SINUS RHYTHM Nonspecific T wave Compared to ECG 08/04/2021 16:19:14 T-wave abnormality no longer present Electronically Signed On 08-05-2021 21:14:36 CDT by Giuliana Mcginnis M.D. [id number]
[2021-08-04 22:34] LABS: Troponin 5 6HR 33.37 ng/L (0-15)
[2021-08-04 22:36] LABS: Troponin 5 6HR Delta 0.37 ng/L (0-12)
[2021-08-05] VITALS (42 sets, daily range): BP systolic 103–120; BP diastolic 51–69; PULSE 67–89; RESP 13–25; TEMP 36.8–37.4; O2SAT 90–99
[2021-08-05] MEDS: sodium chloride 0.9% (100 ml) 100 ML 10 ML (00:30)
[2021-08-05 05:16] LABS: Hemoglobin 7.3 g/dL (11.7-16.6); Lymphocytes # 0.3 10^3/uL (0.8-4.8); Lymphocytes % 27.5 %; Mean Corpuscular HGB Conc 34.8 g/dL (30.0-36.0); Mean Corpuscular Hemoglobin 30.9 pg (28.0-34.0); Mean Platelet Volume 9.6 fL (7.4-10.4); Monocytes # 0.2 10^3/uL (0.2-0.9); Monocytes % 18.6 %; Neutrophils % 51.9 %; Nucleated Red Blood Cells % 0 %; Platelet Count 63 10^3/cmm (130-400); Red Blood Count 2.36 10^6/uL (4.1-5.3); Red Cell Distribution Width 15.4 % (12.1-15.1)
[2021-08-05 05:37] LABS: Alanine Aminotransferase 11 U/L (0-41); Albumin Level 3.2 g/dL (3.5-5.2); Alkaline Phosphatase 60 IU/L (40-130); Anion Gap 13.5 (5-19); Aspartate Amino Transferase 13 U/L (0-40); Blood Urea Nitrogen 10 mg/dL (8-23); Calcium 8.3 mg/dL (8.5-10.5); Carbon Dioxide 24 mmol/L (22-29); Chloride 100 mmol/L (98-107); Globulin 2.6 g/dL (1.3-4.6); Glucose 90 mg/dL (65-115); Osmolality Calculated 277 mOsm/kg (285-295); Potassium 3.5 mmol/L (3.5-5.1); Slide Review Slide Review Perform; Sodium 134 mmol/L (136-145); Thyroid Stimulating Hormone 6.28 uIU/mL (0.27-4.20); Total Protein 5.8 g/dL (6.6-8.7)
[2021-08-05 05:41] LABS: Neutrophils # 0.53 10^3/uL (1.8-7.7)
[2021-08-05] MEDS: metoprolol succinate ER (24 HR) 25 mg Tablet 12.5 MG PO (06:19)
[2021-08-05] MEDS: pantoprazole 40 mg SDV IVP ×2 (06:20→14:53)
[2021-08-05] MEDS: magnesium citrate Btl 296 mL PO (06:29)
[2021-08-05] MEDS: tamsulosin 0.4 mg Capsule PO ×2 (08:20→17:13)
[2021-08-05 09:27] LABS: Hemoglobin 7.9 g/dL (11.7-16.6); Lymphocytes # 0.3 10^3/uL (0.8-4.8); Lymphocytes % 27.5 %; Mean Corpuscular HGB Conc 34.3 g/dL (30.0-36.0); Mean Corpuscular Hemoglobin 30.7 pg (28.0-34.0); Mean Corpuscular Volume 89.5 fl (80-94); Mean Platelet Volume 9.4 fL (7.4-10.4); Monocytes # 0.2 10^3/uL (0.2-0.9); Monocytes % 15.7 %; Neutrophils % 56.8 %; Nucleated Red Blood Cells % 0 %; Platelet Count 60 10^3/cmm (130-400); Red Blood Count 2.57 10^6/uL (4.1-5.3); Red Cell Distribution Width 15.4 % (12.1-15.1)
[2021-08-05] MEDS: potassium chloride oral liq 20 mEq/15 mL UDC 40 MEQ PO (09:48)
[2021-08-05 09:58] LABS: Add Urine Microscopic? NO; Charge for UA Resulting for Rev
[2021-08-05 10:09] LABS: Bilirubin Urine Neg (Negative); Blood Urine Neg (Negative); Glucose Urine UA Norm (Normal); Ketones Urine 1+ (Negative); Leukocyte Esterase Urine Negative (Negative); Nitrate Urine Negative (Negative); Protein Urine Neg (Negative); Specific Gravity, Urine 1.015 (1.005-1.030); Urine Appearance Clear (CLEAR); Urine Color Yellow (Yellow); Urobilinogen Urine Norm (Negative); pH Urine 5 (5-7)
[2021-08-05 10:14] LABS: T3 Free 1.6 PG/ML (2.0-4.4)
[2021-08-05 10:50] LABS: Neutrophils # 0.58 10^3/uL (1.8-7.7); Slide Review Slide Review Perform
--- NOTE | 2021-08-05 11:42 | PC.NURSE ---
Report Given to Nurse Daniels on med surge.
--- NOTE | 2021-08-05 13:06 | P.PN_ITS ---
Subjective Subjective: Reports that he is doing a bit better. Feels better after blood transfusion. Denies any additional ache or pain. No trouble breathing. No chest pain or pressure. No fever or chills. No bloody bowel movements. Vitals/I&O/Wt Last Vital Signs Temp 98.7 F 08/05/21 08:45 Pulse 84 08/05/21 09:00 Resp 25 H 08/05/21 09:00 BP 105/52 08/05/21 09:00 Pulse Ox 95 08/05/21 09:00 08/04/21 08/05/21 08/05/21 22:59 06:59 14:59 Intake Total 644.417 / 703.584 392 / 1095.584 360 / 360 Output Total 500 / 500 200 / 700 100 / 100 Balance 144.417 / 203.584 192 / 395.584 260 / 260 Weight last 48 hrs Weight 77.111 kg Physical Exam Const: COMMON NORMALS: alert GENERAL APPEARANCE: cooperative ORIENTATION/CONSCIOUSNESS: Yes awake OTHER: [place] HENMT: COMMON NORMALS: normocephalic, EAC's normal, Normal external nose present and moist oral mucous membranes HEAD & SCALP: normocephalic NOSE: Normal external nose present EXTERNAL AUDITORY CANAL: EAC's normal Neck/C-Spine: COMMON NORMALS: no meningeal signs Chest: CHEST: Yes Symmetrical chest wall rise Resp: COMMON NORMALS: clear to auscultation bilaterally AUSCULTATION: clear to auscultation bilaterally Cardio: COMMON NORMALS: regular rate, regular rhythm and No murmurs present (Cardio) RATE: regular rate RHYTHM: regular rhythm GI: COMMON NORMALS: Normal to inspection, nondistended, normoactive bowel sounds present, Soft to palpation and non-tender PALPATION: Yes Soft to palpation Extremity: COMMON NORMALS: no pedal edema Neuro: COMMON NORMALS: moves all extremities SENSORIUM/ORIENTATION: Yes alert MENINGEAL SIGNS: Yes no meningeal signs Psych: COMMON NORMALS: mental status grossly normal THOUGHT PROCESS: Circumstantial thought process present Skin: COMMON NORMALS: no wounds GENERAL SKIN EXAM: dry skin, ecchymosis and petechiae RASHES: no rashes Data : 08/05/21 09:10 08/05/21 04:15 Micro: Microbiology 08/04/21 16:11 Blood Culture - Preliminary Blood SPECIMEN COLLECTED 08/04/21 15:40 Blood Culture - Preliminary Blood SPECIMEN COLLECTED A&P Assessment and plan (1) Acute anemia: Last night hemoglobin decreased to 6.7. Acute anemia multifactorial, possible volvulus with pelvic fracture, in addition to anemia secondary to chemotherapy, also reports having hematochezia back in 08/01 after RBC transfusion at that time. So far no bloody or melanotic bowel movements. Received 1 unit RBC and 2 units of platelets on 08/04 so far with good response. Requesting occult blood stool. Follow-up blood counts in the morning. Status: Acute (2) Atrial fibrillation with rapid ventricular response: Heart rates are doing much better. Weaned off Cardizem drip. Restarted on metoprolol 12.5 mg. Maintaining blood pressures. Replaced serum magnesium. Additional replacement of potassium today. Monitor heart rates. Recheck electrolytes in the morning. Check TSH elevated. Check free T4, free T3. Troponin series not suggestive of acute ischemia. Mild elevation of troponin. Assess TTE. Status: Acute (3) Closed pelvic fracture: After fall, posterior left inferior pubic rami extending to the ischium. Follow-up blood counts, platelet levels, requested platelets to be available in case needing transfusion. Conservative management for now. PT, OT assessment Status: Acute (4) Pancytopenia: Recheck blood count this evening, and then again in the morning given pelvic fractures, anemia, for which he did receive 2 units RBC transfusions on 08/01, also reports hematochezia the same afternoon after which he stopped taking E liquis. With platelets 16,000, but on recheck 27,000. 2 units of platelets on hold been requested. Neutropenia with absolute neutrophil count 500, recheck 700. Neutropenic precautions and neutropenic diet. Check blood culture. He is afebrile. Uninformative Pro-Pedro Status: Acute (5) Fall: After losing balance after getting up from the bed. With bruising, several skin tears which have now stopped bleeding. With known moderate-severe aortic stenosis. Once he is more stable check orthostatic precautions. PT, OT assessment If persistent symptoms, consideration of aortic valve repair. Status: Acute (6) Thrombocytopenia: Status: Acute (7) Hematochezia: Reports hematochezia on 08/01 after receiving 2 units RBC transfusion. He stopped Eliquis by himself at this time. Check Hemoccult Continue to hold anticoagulation. Once neutropenia resolves would benefit from additional assessment by endoscopy. PPI, although low suspicion that it was upper GI bleed Status: Acute (8) Pleural effusion: Large right pleural effusion, stable from prior. Once he is a bit more stable, with improvement in platelets, consider thoracentesis. 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 Attestations Medical Necessity Statement*: Continue admission for assessment of management of acute anemia in setting of pelvic fracture, pancytopenia from chemotherapy, also with acute neutropenia, assessment after A. fib with RVR and optimization of control in gentleman with lung cancer. 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
--- NOTE | 2021-08-05 13:12 | USCV_ITS ---
Elliott Anderson Age: 76 Gender: M : 1945 Exam Date: 08/05/2021 13:49 Ordering Phys: Dae Zacarias MD Technologist: YOBANY [place] [facility] [place]: ELEVATED TROP W/ AFIB AND RVR BP: 105 / 52 HR: 88 Rhythm: Atrial fibrillation Technical Quality: Suboptimal MEASUREMENTS (Male / Female) Normal Values 2D ECHO LV Diastolic Diameter PLAX 3.8 cm 4.2 - 5.9 / 3.9 - 5.3 cm LV Systolic Diameter PLAX 3.1 cm IVS Diastolic Thickness 1.8 cm 0.6 - 1.0 / 0.6 - 0.9 cm IVS Systolic Thickness 1.8 cm LVPW Diastolic Thickness 0.9 cm 0.6 - 1.0 / 0.6 - 0.9 cm LVPW Systolic Thickness 1.4 cm LVOT Diameter 2.0 cm LV Ejection Fraction 2D Teich 41.1 % LV Ejection Fraction MOD 2C 71.1 % LV Ejection Fraction 2C AL 69.6 % LA Diameter 2.5 cm LA Width 2.6 cm LA Height 4.3 cm RA Width 2.6 cm RA Height 3.7 cm Aorta at Sinotubular Diameter 2.5 cm IVC Diameter 2.0 cm M-MODE Aortic Annulus Diameter 3.2 cm LA Ao Ratio MM 0.8 MV E Point Septal Separation 0.9 cm DOPPLER Right Atrial Pressure 3.0 mmHg FINDINGS Left Ventricle Normal left ventricular size and systolic function, EF 69 %. No regional wall motion abnormalities. Right Ventricle Normal right ventricular size and systolic function. Right Atrium Normal right atrial size. Left Atrium Normal left atrial size. Mitral Valve Thickened mitral valve. Mild mitral annular calcification. Aortic Valve Thickened and stenotic aortic valve Tricuspid Valve No gross abnormalities noted Pulmonic Valve No gross abnormalities noted Pericardium No pericardial effusion. Aorta Normal aortic annulus size. IVC CONCLUSIONS Normal left ventricular size and systolic function, EF 69 %. No regional wall motion abnormalities. Thickened mitral valve. Mild mitral annular calcification. Thickened aortic valve with restricted mobility. Moderate calcification. There is no pericardial effusion. Dr Giuliana Mcginnis MD [facility] (Electronically Signed) Final Date: 05 August 2021 21:00 S
[2021-08-05 14:40] LABS: Bacillus cereus group Not Detected (NOT DETECT); Bacillus subtillis group Not Detected (NOT DETECT); Corynebacterium Not Detected (NOT DETECT); Cutibacterium acnes (P.acnes) Not Detected (NOT DETECT); Enterococcus Not Detected (NOT DETECT); Enterococcus faecalis Not Detected (NOT DETECT); Enterococcus faecium Not Detected (NOT DETECT); Lactobacillus species Not Detected (NOT DETECT); Listeria Not Detected (NOT DETECT); Listeria monocytogenes Not Detected (NOT DETECT); Micrococcus Not Detected (NOT DETECT); Pan Candida Not Detected (NOT DETECT); Pan Gram-Negative Not Detected (NOT DETECT); Staphylococcus epidermidis Not Detected (NOT DETECT); Staphylococcus lugdunensis Not Detected (NOT DETECT); Staphylococcus species Detected (NOT DETECT); Streptococcus agalactiae Not Detected (NOT DETECT); Streptococcus anginosus group Not Detected (NOT DETECT); Streptococcus pneumoniae Not Detected (NOT DETECT); Streptococcus pyogenes Not Detected (NOT DETECT); Streptococcus species Not Detected (NOT DETECT); mecA Not Detected (NOT DETECT); mecC Not Detected (NOT DETECT)
[2021-08-05 20:30] LABS: Eosinophils % 0.6 %; Hematocrit 21.5 % (42.0-52.0); Hemoglobin 7.3 g/dL (11.7-16.6); Lymphocytes # 0.5 10^3/uL (0.8-4.8); Lymphocytes % 29.1 %; Mean Corpuscular Hemoglobin 30.9 pg (28.0-34.0); Mean Corpuscular Volume 91.1 fl (80-94); Mean Platelet Volume 9.7 fL (7.4-10.4); Monocytes # 0.4 10^3/uL (0.2-0.9); Monocytes % 24.1 %; Neutrophils % 44.9 %; Nucleated Red Blood Cells % 0 %; Platelet Count 58 10^3/cmm (130-400); Red Blood Count 2.36 10^6/uL (4.1-5.3); Red Cell Distribution Width 16.1 % (12.1-15.1); White Blood Count 1.6 10^3/uL (4.0-10.0)
[2021-08-05 20:45] LABS: Neutrophils # 0.71 10^3/uL (1.8-7.7); Slide Review Slide Review Perform
[2021-08-06] VITALS (16 sets, daily range): BP systolic 99–127; BP diastolic 59–72; PULSE 67–78; RESP 17–18; TEMP 36.4–37; O2SAT 87–98
[2021-08-06 05:05] LABS: Eosinophils % 1.4 %; Hemoglobin 7.1 g/dL (11.7-16.6); Lymphocytes # 0.4 10^3/uL (0.8-4.8); Lymphocytes % 29.1 %; Mean Corpuscular HGB Conc 34.3 g/dL (30.0-36.0); Mean Corpuscular Hemoglobin 30.7 pg (28.0-34.0); Mean Corpuscular Volume 89.6 fl (80-94); Mean Platelet Volume 10.1 fL (7.4-10.4); Monocytes # 0.4 10^3/uL (0.2-0.9); Monocytes % 28.4 %; Nucleated Red Blood Cells % 0 %; Platelet Count 59 10^3/cmm (130-400); Red Blood Count 2.31 10^6/uL (4.1-5.3); Red Cell Distribution Width 16.2 % (12.1-15.1); White Blood Count 1.4 10^3/uL (4.0-10.0)
[2021-08-06 05:16] LABS: Alanine Aminotransferase 7 U/L (0-41); Alkaline Phosphatase 59 IU/L (40-130); Anion Gap 13.4 (5-19); Aspartate Amino Transferase 9 U/L (0-40); Blood Urea Nitrogen 7 mg/dL (8-23); Calcium 8.1 mg/dL (8.5-10.5); Carbon Dioxide 25 mmol/L (22-29); Chloride 100 mmol/L (98-107); Globulin 2.5 g/dL (1.3-4.6); Glucose 104 mg/dL (65-115); Magnesium 1.7 mg/dL (1.7-2.3); Osmolality Calculated 278 mOsm/kg (285-295); Potassium 3.4 mmol/L (3.5-5.1); Sodium 135 mmol/L (136-145); Total Bilirubin 0.7 mg/dL (0.15-1.2); Total Protein 5.5 g/dL (6.6-8.7)
[2021-08-06 05:34] LABS: Slide Review Slide Review Perform
[2021-08-06 05:36] LABS: Hematocrit 20.7 % (42.0-52.0); Neutrophils # 0.55 10^3/uL (1.8-7.7)
[2021-08-06] MEDS: metoprolol succinate ER (24 HR) 25 mg Tablet 12.5 MG PO (06:01)
[2021-08-06] MEDS: HYDROcodone-acetaminophen 5-325 mg Tablet 1 TAB PO (06:01)
[2021-08-06] MEDS: tamsulosin 0.4 mg Capsule PO ×2 (10:02→17:07)
[2021-08-06] MEDS: sodium chloride 0.9% (100 ml) 100 ML 10 ML (10:03)
--- NOTE | 2021-08-06 12:10 | PC.OT ---
hold OT treatment today due to critically low Hematocrit. Will attempt again tomorrow.
--- NOTE | 2021-08-06 16:19 | P.PN_ITS ---
Subjective Subjective: He reports objectively he is doing all right. He is not bothered by any particular pain currently at rest. Denies chest pain or pressure. No trouble breathing. No nausea or vomiting. Tells me he was having some trouble standing up today with attempted therapy. With measured blood pressure he was becoming very orthostatic. Vitals/I&O/Wt Last Vital Signs Temp 98.2 F 08/06/21 12:16 Pulse 76 08/06/21 12:16 Resp 18 08/06/21 12:16 BP 109/66 08/06/21 12:16 Pulse Ox 94 08/06/21 12:16 08/06/21 08/06/21 08/06/21 06:59 14:59 22:59 Intake Total 490 / 490 Output Total 150 / 550 100 / 100 Balance -150 / 10 390 / 390 Physical Exam Const: COMMON NORMALS: alert GENERAL APPEARANCE: cooperative ORIENTA TION/CONSCIOUSNESS: Yes awake OTHER: [place] HENMT: COMMON NORMALS: normocephalic, EAC's normal, Normal external nose present and moist oral mucous membranes HEAD & SCALP: normocephalic NOSE: Normal external nose present EXTERNAL AUDITORY CANAL: EAC's normal Neck/C-Spine: COMMON NORMALS: no meningeal signs Chest: CHEST: Yes Symmetrical chest wall rise Resp: COMMON NORMALS: clear to auscultation bilaterally AUSCULTATION: clear to auscultation bilaterally Cardio: COMMON NORMALS: regular rate, regular rhythm and No murmurs present (Cardio) RATE: regular rate RHYTHM: regular rhythm GI: COMMON NORMALS: Normal to inspection, nondistended, normoactive bowel sounds present, Soft to palpation and non-tender PALPATION: Yes Soft to palpation Extremity: COMMON NORMALS: no pedal edema OTHER: Soft right inguinal hernia Neuro: COMMON NORMALS: moves all extremities SENSORIUM/ORIENTATION: Yes alert MENINGEAL SIGNS: Yes no meningeal signs Psych: COMMON NORMALS: mental status grossly normal THOUGHT PROCESS: Circumstantial thought process present Skin: COMMON NORMALS: no wounds GENERAL SKIN EXAM: dry skin, ecchymosis and petechiae RASHES: no rashes Data : 08/06/21 04:30 08/06/21 04:30 Micro: Microbiology 08/05/21 15:14 Blood Culture - Preliminary Blood NEGATIVE TO DATE 08/04/21 16:11 Blood Culture - Preliminary Blood Coagulase negativ staphylococc 08/05/21 17:28 Blood Culture - Preliminary Blood SPECIMEN COLLECTED 08/04/21 15:40 Blood Culture - Preliminary Blood NEGATIVE TO DATE A&P Assessment and plan (1) Acute anemia: Additional decrease in hemoglobin today, down to 7.1, and he is quite significantly orthostatic, discussed with him regarding additional unit of red blood cells to which she is agreeable. Platelets appear to be holding up at this time, no additional platelet transfusion for now. Follow-up blood counts tonight and tomorrow. Previously hemoglobin decreased to 6.7. Acute anemia multifactorial, possible blood loss with pelvic fracture, in addition to anemia secondary to chemotherapy, also reports having hematochezia back in 08/01 after RBC transfusion at that time. So far no bloody or melanotic bowel movements. Received 1 unit RBC and 2 units of platelets on 08/04 so far with good response. Requested occult blood stool. Status: Acute (2) Orthostatic hypotension: Orthostatic blood pressures assessed today with PT, with noted severe orthostasis, blood pressure 122/68 supine, 102/62 sitting, down to 69/33 standing. Was set back down immediately. Additional RBC transfusion as above. Discussed with him also started on midodrine. Reassess. In case persistent hypotension, may additionally need consideration of reevaluation and possible repair of aortic valve stenosis. EF on limited echo appears normal. Status: Acute (3) Atrial fibrillation with rapid ventricular response: Heart rates are doing much better. Give additional potassium, magnesium. Continue metoprolol 12.5 mg. Weaned off Cardizem drip. Replaced serum magnesium. Additional replacement of potassium today. Monitor heart rates. Recheck electrolytes in the morning. Check TSH elevated. Check free T4, free T3. Troponin series not suggestive of acute ischemia. Mild elevation of troponin. Assess TTE. Status: Acute (4) Closed pelvic fracture: After fall, posterior left inferior pubic rami extending to the ischium. Follow-up blood counts, platelet levels, requested platelets to be available in case needing transfusion. Conservative management for now. PT, OT, although has been limited by severe orthostasis Status: Acute (5) Pancytopenia: Recheck blood count this evening, and then again in the morning given pelvic fractures, anemia, for which he did receive 2 units RBC transfusions on 08/01, also reports hematochezia the same afternoon after which he stopped taking Eliquis. With platelets 16,000, but on recheck 27,000. 2 units of platelets on hold been requested. Neutropenia with absolute neutrophil count 500, recheck 700. Neutropenic precautions and neutropenic diet. Check blood culture. He is afebrile. Uninformative Pro-Pedro Status: Acute (6) Fall: After losing balance after getting up from the bed. With bruising, several skin tears which have now stopped bleeding. With known moderate-severe aortic stenosis. Once he is more stable check orthostatic precautions. PT, OT, although has been limited by severe orthostasis found today If persistent symptoms, consideration of aortic valve repair. Status: Acute (7) Thrombocytopenia: Status: Acute (8) Hematochezia: Reports hematochezia on 08/01 after receiving 2 units RBC transfusion. He stopped Eliquis by himself at this time. Check Hemoccult Continue to hold anticoagulation. Once neutropenia resolves would benefit from additional assessment by endoscopy. PPI, although low suspicion that it was upper GI bleed Status: Acute (9) Pleural effusion: Large right pleural effusion, stable from prior. Once he is a bit more stable, with improvement in platelets, consider thoracentesis. 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
[2021-08-06] MEDS: potassium chloride ER 20 mEq Tablet 40 MEQ PO (17:06)
[2021-08-06] MEDS: pantoprazole 40 mg SDV IVP (17:06)
[2021-08-06] MEDS: magnesium sulfate premix 2 GM/50 ML PIGGYBACK IV (17:07)
[2021-08-06 17:11] LABS: Hemoglobin 8.1 g/dL (11.7-16.6)
[2021-08-06] MEDS: midodrine 5 mg TABLET PO (21:58)
[2021-08-07] VITALS (9 sets, daily range): BP systolic 81–126; BP diastolic 47–73; PULSE 69–89; RESP 16–18; TEMP 36.5–36.9; O2SAT 91–97
[2021-08-07] MEDS: pantoprazole 40 mg SDV IVP ×2 (03:27→15:49)
[2021-08-07 05:37] LABS: Basophils % 0.8 %; Eosinophils % 1.5 %; Hemoglobin 8.3 g/dL (11.7-16.6); Lymphocytes # 0.4 10^3/uL (0.8-4.8); Lymphocytes % 28.8 %; Mean Corpuscular HGB Conc 33.2 g/dL (30.0-36.0); Mean Corpuscular Hemoglobin 30.5 pg (28.0-34.0); Mean Corpuscular Volume 91.9 fl (80-94); Mean Platelet Volume 9.6 fL (7.4-10.4); Monocytes # 0.3 10^3/uL (0.2-0.9); Monocytes % 21.2 %; Neutrophils % 46.9 %; Nucleated Red Blood Cells % 0 %; Platelet Count 60 10^3/cmm (130-400); Red Blood Count 2.72 10^6/uL (4.1-5.3); Red Cell Distribution Width 16.4 % (12.1-15.1); White Blood Count 1.3 10^3/uL (4.0-10.0)
[2021-08-07] MEDS: metoprolol succinate ER (24 HR) 25 mg Tablet 12.5 MG PO (05:45)
[2021-08-07 05:54] LABS: Slide Review Slide Review Perform
[2021-08-07 05:55] LABS: Neutrophils # 0.62 10^3/uL (1.8-7.7)
[2021-08-07 06:02] LABS: Alanine Aminotransferase 7 U/L (0-41); Albumin Level 2.9 g/dL (3.5-5.2); Alkaline Phosphatase 64 IU/L (40-130); Anion Gap 11.8 (5-19); Aspartate Amino Transferase 8 U/L (0-40); Blood Urea Nitrogen 7 mg/dL (8-23); Calcium 8.4 mg/dL (8.5-10.5); Carbon Dioxide 25 mmol/L (22-29); Chloride 101 mmol/L (98-107); Globulin 2.8 g/dL (1.3-4.6); Glucose 99 mg/dL (65-115); Osmolality Calculated 276 mOsm/kg (285-295); Potassium 3.8 mmol/L (3.5-5.1); Sodium 134 mmol/L (136-145); Total Bilirubin 0.8 mg/dL (0.15-1.2); Total Protein 5.7 g/dL (6.6-8.7)
[2021-08-07 06:28] LABS: T4 Total 6.9 mcg/dL (4.9-10.5)
--- NOTE | 2021-08-07 07:59 | PC.NURSE ---
pt complaining of an erection of multiple hours. physician notified.
[2021-08-07] MEDS: tamsulosin 0.4 mg Capsule PO ×2 (09:49→17:02)
[2021-08-07] MEDS: midodrine 5 mg TABLET PO ×3 (09:49→20:50)
--- NOTE | 2021-08-07 12:18 | PC.SOCIAL ---
IMM Update pg 2 of IMM updated and reviewed w/ patient. Copy provided and Copy placed in chart.
--- NOTE | 2021-08-07 13:59 | P.PN_ITS ---
Subjective Subjective: Patient was seen this morning, patient's grandson was on the phone, following discussion was made with grandsons presence, he tells me that yesterday he got up twice, and felt lightheaded, his blood pressure dropped, so he stopped getting up, he tells me that when he did get up he did not have any back pain or pain in his lower pelvis, he continues to have a poor appetite, no fevers overnight, no cough, no fevers, no dysuria, no current lightheadedness, no dizziness, no chest pain, denies any bloody or black stools, he is currently on 2 L oxygen, does not use oxygen at home, Vitals/I&O/Wt Last Vital Signs Temp 98.1 F 08/07/21 11:06 Pulse 72 08/07/21 12:06 Resp 18 08/07/21 12:06 BP 126/73 08/07/21 11:06 Pulse Ox 91 08/07/21 12:06 08/06/21 08/07/21 08/07/21 22:59 06:59 14:59 Intake Total 390 / 880 600 / 600 Output Total 300 / 400 100 / 100 Balance 390 / 780 -300 / 480 500 / 500 Physical Exam Const: COMMON NORMALS: no acute distress and patient oriented x3 Resp: COMMON NORMALS: normal respiratory effort, No retractions, No use of accessory muscles and clear to auscultation bilaterally AUSCULTATION: clear to auscultation bilaterally Cardio: COMMON NORMALS: regular rate, regular rhythm, S1 normal heart sound present and S2 normal heart sound present RATE: regular rate RHYTHM: regular rhythm HEART SOUNDS: S1 normal heart sound present and S2 normal heart sound present GI: COMMON NORMALS: Normal to inspection, nondistended, normoactive bowel sounds present, Soft to palpation and non-tender PALPATION: Yes Soft to palpation Extremity: COMMON NORMALS: no pedal edema Neuro: COMMON NORMALS: patient oriented x3 Psych: COMMON NORMALS: mental status grossly normal Data : 08/07/21 05:04 08/07/21 05:04 Micro: Microbiology 08/05/21 17:28 Blood Culture - Preliminary Blood NEGATIVE TO DATE 08/05/21 15:14 Blood Culture - Preliminary Blood NEGATIVE TO DATE 08/04/21 16:11 Blood Culture - Preliminary Blood Coagulase negativ staphylococc A&P Assessment and plan (1) Acute anemia: Additional decrease in hemoglobin today, down to 7.1, and he is quite significantly orthostatic, discussed with him regarding additional unit of red blood cells to which she is agreeable. Platelets appear to be holding up at this time, no additional platelet transfusion for now. Follow-up blood counts tonight and tomorrow. Previously hemoglobin decreased to 6.7. Acute anemia multifactorial, possible blood loss with pelvic fracture, in addition to anemia secondary to chemotherapy, also reports having hematochezia back in 08/01 after RBC transfusion at that time. So far no bloody or melanotic bowel movements. Received 1 unit RBC and 2 units of platelets on 08/04 so far with good response. Requested occult blood stool. Status: Acute (2) Orthostatic hypotension: Orthostatic blood pressures assessed today with PT, with noted severe orthostasis, blood pressure 122/68 supine, 102/62 sitting, down to 69/33 standing. Was set back down immediately. Additional RBC transfusion as above. Discussed with him also started on midodrine. Reassess. In case persistent hypotension, may additionally need consideration of reevaluation and possible repair of aortic valve stenosis. EF on limited echo appears normal. Status: Acute (3) Atrial fibrillation with rapid ventricular response: Heart rates are doing much better. Give additional potassium, magnesium. Continue metoprolol 12.5 mg. Weaned off Cardizem drip. Replaced serum magnesium. Additional replacement of potassium today. Monitor heart rates. Recheck electrolytes in the morning. Check TSH elevated. Check free T4, free T3. Troponin series not suggestive of acute ischemia. Mild elevation of troponin. Assess TTE. Status: Acute (4) Closed pelvic fracture: After fall, posterior left inferior pubic rami extending to the ischium. Follow-up blood counts, platelet levels, requested platelets to be available in case needing transfusion. Conservative management for now. PT, OT, although has been limited by severe orthostasis Status: Acute (5) Pancytopenia: Recheck blood count this evening, and then again in the morning given pelvic fractures, anemia, for which he did receive 2 units RBC transfusions on 08/01, also reports hematochezia the same afternoon after which he stopped taking Eliquis. With platelets 16,000, but on recheck 27,000. 2 units of platelets on hold been requested. Neutropenia with absolute neutrophil count 500, recheck 700. Neutropenic precautions and neutropenic diet. Check blood culture. He is afebrile. Uninformative Pro-Pedro Status: Acute (6) Fall: After losing balance after getting up from the bed. With bruising, several skin tears which have now stopped bleeding. With known moderate-severe aortic stenosis. Once he is more stable check orthostatic precautions. PT, OT, although has been limited by severe orthostasis found today If persistent symptoms, consideration of aortic valve repair. Status: Acute (7) Thrombocytopenia: Status: Acute (8) Hematochezia: Reports hematochezia on 08/01 after receiving 2 units RBC transfusion. He stopped Eliquis by himself at this time. Check Hemoccult Continue to hold anticoagulation. Once neutropenia resolves would benefit from additional assessment by endoscopy. PPI, although low suspicion that it was upper GI bleed Status: Acute (9) Pleural effusion: Large right pleural effusion, stable from prior. Once he is a bit more stable, with improvement in platelets, consider thoracentesis. 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 Mass/malignancy again noted in the right hilar and region mediastinum causing SVC stenosis, similar to prior exam. 3. Spiculated mass in the right upper lobe concerning for malignancy, similar to prior exam. 4. Persistent large right-sided pleural effusion, similar to prior exam. 5. Stable and slightly decreased areas of masslike consolidation consolidation in the the left lower lobe Aortic stenosis -Thickened and stenotic aortic valve -Has had surgical intervention in the past Atrial fibrillation -Hold metoprolol -Monitor magnesium, potassium Pancytopenia -Likely chemotherapy-induced -Hemoccult stool -Has received 1 unit PRBC, 2 units platelets on 611 -Remains neutropenic -Neutropenic precautions, keep an eye on blood counts Fall -Likely combination of anemia, orthostatic hypotension, deconditioning, aortic stenosis Left pleural effusion -Currently not symptomatic, continue to monitor -Monitor require thoracocentesis Attestations Medical Necessity Statement*: Patient requires hospitalization for acute anemia, thrombocytopenia, orthostatic hypotension, atrial fibrillation,, pubic rami fracture Coding Level of Care Code 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
[2021-08-07 14:09] LABS: Add Urine Microscopic? NO; Charge for UA Resulting for Rev
[2021-08-07 15:18] LABS: Protein Urine Neg (Negative); Specific Gravity, Urine 1.005 (1.005-1.030); Urine Appearance Clear (CLEAR); Urine Color Dark Yellow (Yellow); pH Urine 7 (5-7)
[2021-08-07 15:19] LABS: Bilirubin Urine 1+ (Negative); Blood Urine Neg (Negative); Glucose Urine UA Norm (Normal); Ketones Urine Negative (Negative); Leukocyte Esterase Urine Negative (Negative); Nitrate Urine Negative (Negative); Urobilinogen Urine 4+ mg/dL (Negative)
[2021-08-07] MEDS: sodium chloride 0.9% 1,000 ML 50 ML IV (15:48)
[2021-08-08] VITALS (10 sets, daily range): BP systolic 74–151; BP diastolic 50–75; PULSE 69–98; RESP 16–24; TEMP 36.5–36.7; O2SAT 90–97
[2021-08-08] MEDS: magnesium citrate Btl 296 mL PO (05:29)
[2021-08-08] MEDS: pantoprazole 40 mg SDV IVP ×2 (05:29→15:17)
[2021-08-08 06:12] LABS: Alanine Aminotransferase 6 U/L (0-41); Albumin Level 2.9 g/dL (3.5-5.2); Alkaline Phosphatase 62 IU/L (40-130); Aspartate Amino Transferase 9 U/L (0-40); Blood Urea Nitrogen 8 mg/dL (8-23); C Reactive Protein 40.5 mg/L (0.0-4.9); Calcium 8.4 mg/dL (8.5-10.5); Carbon Dioxide 24 mmol/L (22-29); Chloride 101 mmol/L (98-107); Globulin 2.7 g/dL (1.3-4.6); Glucose 96 mg/dL (65-115); Magnesium 1.8 mg/dL (1.7-2.3); Osmolality Calculated 276 mOsm/kg (285-295); Phosphorus 2.9 mg/dL (2.5-4.5); Sodium 134 mmol/L (136-145); Total Bilirubin 0.6 mg/dL (0.15-1.2); Total Protein 5.6 g/dL (6.6-8.7)
[2021-08-08 06:14] LABS: Anion Gap 12.9 (5-19); Potassium 3.9 mmol/L (3.5-5.1)
[2021-08-08 06:18] LABS: Procalcitonin 0.13 ng/mL (0-0.5)
[2021-08-08] MEDS: tamsulosin 0.4 mg Capsule PO ×2 (09:42→17:22)
[2021-08-08] MEDS: midodrine 5 mg TABLET PO (09:42)
[2021-08-08 10:43] LABS: Basophils % 0.6 %; Eosinophils % 1.2 %; Hematocrit 25.6 % (42.0-52.0); Hemoglobin 8.6 g/dL (11.7-16.6); Lymphocytes # 0.5 10^3/uL (0.8-4.8); Lymphocytes % 28.6 %; Mean Corpuscular HGB Conc 33.6 g/dL (30.0-36.0); Mean Corpuscular Hemoglobin 30.5 pg (28.0-34.0); Mean Corpuscular Volume 90.8 fl (80-94); Mean Platelet Volume 10.2 fL (7.4-10.4); Monocytes # 0.4 10^3/uL (0.2-0.9); Monocytes % 24.2 %; Neutrophils % 45.4 %; Nucleated Red Blood Cells % 0 %; Platelet Count 71 10^3/cmm (130-400); Red Blood Count 2.82 10^6/uL (4.1-5.3); Red Cell Distribution Width 16.3 % (12.1-15.1); White Blood Count 1.6 10^3/uL (4.0-10.0)
[2021-08-08] MEDS: sodium chloride 0.9% 1,000 ML 50 ML IV (10:57)
[2021-08-08 11:16] LABS: Slide Review Slide Review Perform
[2021-08-08 11:17] LABS: Neutrophils # 0.73 10^3/uL (1.8-7.7)
--- NOTE | 2021-08-08 12:40 | PM.PN ---
Subjective Subjective: Patient was seen this morning he is a bit frustrated about remaining orthostatic positive, complains of weakness, no nausea, no vomiting, no chest pain, no palpitations, no shortness of breath, Vitals/I&O/Wt Last Vital Signs Temp 97.8 F 08/08/21 07:51 Pulse 82 08/08/21 10:07 Resp 18 08/08/21 10:07 BP 97/55 08/08/21 08:00 Pulse Ox 93 08/08/21 10:07 08/07/21 08/08/21 08/08/21 22:59 06:59 14:59 Intake Total 240 / 840 120 / 960 987.5 / 987.5 Output Total 200 / 300 Balance 240 / 740 -80 / 660 987.5 / 987.5 Physical Exam Const: COMMON NORMALS: no acute distress and patient oriented x3 Neck/C-Spine: COMMON NORMALS: no JVD Resp: COMMON NORMALS: normal respiratory effort, No retractions, No use of accessory muscles and clear to auscultation bilaterally AUSCULTATION: clear to auscultation bilaterally Cardio: COMMON NORMALS: no JVD, regular rate, regular rhythm, S1 normal heart sound present and S2 normal heart sound present RATE: regular rate RHYTHM: regular rhythm HEART SOUNDS: S1 normal heart sound present and S2 normal heart sound present GI: COMMON NORMALS: Normal to inspection, nondistended, normoactive bowel sounds present, Soft to palpation, non-tender and No hepatosplenomegaly present PALPATION: Yes Soft to palpation and Yes No hepatosplenomegaly present Extremity: COMMON NORMALS: no pedal edema Neuro: COMMON NORMALS: patient oriented x3 Psych: COMMON NORMALS: mental status grossly normal Data : 08/08/21 09:18 08/08/21 05:15 Micro: Microbiology 08/08/21 09:48 Occult Blood (FIT) - Final Stool Routine Collection A&P Assessment and plan (1) Acute anemia: Additional decrease in hemoglobin today, down to 7.1, and he is quite significantly orthostatic, discussed with him regarding additional unit of red blood cells to which she is agreeable. Platelets appear to be holding up at this time, no additional platelet transfusion for now. Follow-up blood counts tonight and tomorrow. Previously hemoglobin decreased to 6.7. Acute anemia multifactorial, possible blood loss with pelvic fracture, in addition to anemia secondary to chemotherapy, also reports having hematochezia back in 08/01 after RBC transfusion at that time. So far no bloody or melanotic bowel movements. Received 1 unit RBC and 2 units of platelets on 08/04 so far with good response. Requested occult blood stool. Status: Acute (2) Orthostatic hypotension: Orthostatic blood pressures assessed today with PT, with noted severe orthostasis, blood pressure 122/68 supine, 102/62 sitting, down to 69/33 standing. Was set back down immediately. Additional RBC transfusion as above. Discussed with him also started on midodrine. Reassess. In case persistent hypotension, may additionally need consideration of reevaluation and possible repair of aortic valve stenosis. EF on limited echo appears normal. Status: Acute (3) Atrial fibrillation with rapid ventricular response: Heart rates are doing much better. Give additional potassium, magnesium. Continue metoprolol 12.5 mg. Weaned off Cardizem drip. Replaced serum magnesium. Additional replacement of potassium today. Monitor heart rates. Recheck electrolytes in the morning. Check TSH elevated. Check free T4, free T3. Troponin series not suggestive of acute ischemia. Mild elevation of troponin. Assess TTE. Status: Acute (4) Closed pelvic fracture: After fall, posterior left inferior pubic rami extending to the ischium. Follow-up blood counts, platelet levels, requested platelets to be available in case needing transfusion. Conservative management for now. PT, OT, although has been limited by severe orthostasis Status: Acute (5) Pancytopenia: Recheck blood count this evening, and then again in the morning given pelvic fractures, anemia, for which he did receive 2 units RBC transfusions on 08/01, also reports hematochezia the same afternoon after which he stopped taking Eliquis. With platelets 16,000, but on recheck 27,000. 2 units of platelets on hold been requested. Neutropenia with absolute neutrophil count 500, recheck 700. Neutropenic precautions and neutropenic diet. Check blood culture. He is afebrile. Uninformative Pro-Pedro Status: Acute (6) Fall: After losing balance after getting up from the bed. With bruising, several skin tears which have now stopped bleeding. With known moderate-severe aortic stenosis. Once he is more stable check orthostatic precautions. PT, OT, although has been limited by severe orthostasis found today If persistent symptoms, consideration of aortic valve repair. Status: Acute (7) Thrombocytopenia: Status: Acute (8) Hematochezia: Reports hematochezia on 08/01 after receiving 2 units RBC transfusion. He stopped Eliquis by himself at this time. Check Hemoccult Continue to hold anticoagulation. Once neutropenia resolves would benefit from additional assessment by endoscopy. PPI, although low suspicion that it was upper GI bleed Status: Acute (9) Pleural effusion: Large right pleural effusion, stable from prior. Once he is a bit more stable, with improvement in platelets, consider thoracentesis. 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 Mass/malignancy again noted in the right hilar and region mediastinum causing SVC stenosis, similar to prior exam. 3. Spiculated mass in the right upper lobe concerning for malignancy, similar to prior exam. 4. Persistent large right-sided pleural effusion, similar to prior exam. 5. Stable and slightly decreased areas of masslike consolidation consolidation in the the left lower lobe Aortic stenosis -Thickened and stenotic aortic valve -Has had surgical intervention in the past Atrial fibrillation -Hold metoprolol -Monitor magnesium, potassium Pancytopenia -Likely chemotherapy-induced -Hemoccult stool was positive -Has received 1 unit PRBC, 2 units platelets on 611 -Remains neutropenic -Neutropenic precautions, keep an eye on blood counts Fall -Likely combination of anemia, orthostatic hypotension, deconditioning, aortic stenosis Left pleural effusion -Currently not symptomatic, continue to monitor -Monitor require thoracocentesis Attestations Medical Necessity Statement*: Patient requires hospitalization for orthostatic hypotension, anemia, atrial fibrillation 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
--- NOTE | 2021-08-08 13:31 | PC.NURSE ---
enlarged scrotum and scrotal area, hernia
[2021-08-08] MEDS: midodrine 5 mg TABLET 10 MG PO ×2 (15:13→20:51)
[2021-08-09] VITALS (10 sets, daily range): BP systolic 85–143; BP diastolic 53–73; PULSE 69–104; RESP 16–18; TEMP 36.4–36.8; O2SAT 92–98
[2021-08-09] MEDS: pantoprazole 40 mg SDV IVP ×2 (03:29→15:25)
[2021-08-09] MEDS: sodium chloride 0.9% 1,000 ML 50 ML IV (05:08)
[2021-08-09] MEDS: magnesium citrate Btl 296 mL PO (05:08)
[2021-08-09 05:35] LABS: Eosinophils % 0.6 %; Hematocrit 23.9 % (42.0-52.0); Hemoglobin 8.1 g/dL (11.7-16.6); Lymphocytes # 0.4 10^3/uL (0.8-4.8); Mean Corpuscular HGB Conc 33.9 g/dL (30.0-36.0); Mean Corpuscular Hemoglobin 31.2 pg (28.0-34.0); Mean Corpuscular Volume 91.9 fl (80-94); Mean Platelet Volume 10.4 fL (7.4-10.4); Monocytes # 0.5 10^3/uL (0.2-0.9); Monocytes % 25.8 %; Nucleated Red Blood Cells % 0 %; Platelet Count 93 10^3/cmm (130-400); Red Cell Distribution Width 16.4 % (12.1-15.1); White Blood Count 1.8 10^3/uL (4.0-10.0)
[2021-08-09 05:54] LABS: Alanine Aminotransferase 6 U/L (0-41); Albumin Level 3.1 g/dL (3.5-5.2); Alkaline Phosphatase 66 IU/L (40-130); Aspartate Amino Transferase 10 U/L (0-40); Blood Urea Nitrogen 7 mg/dL (8-23); C Reactive Protein 29.6 mg/L (0.0-4.9); Calcium 8.5 mg/dL (8.5-10.5); Carbon Dioxide 26 mmol/L (22-29); Chloride 101 mmol/L (98-107); Globulin 2.6 g/dL (1.3-4.6); Glucose 92 mg/dL (65-115); Magnesium 1.8 mg/dL (1.7-2.3); Osmolality Calculated 280 mOsm/kg (285-295); Phosphorus 3.3 mg/dL (2.5-4.5); Sodium 136 mmol/L (136-145); Total Bilirubin 0.5 mg/dL (0.15-1.2); Total Protein 5.7 g/dL (6.6-8.7)
[2021-08-09 05:58] LABS: Procalcitonin 0.08 ng/mL (0-0.5)
[2021-08-09 06:02] LABS: Anion Gap 12.7 (5-19); Potassium 3.7 mmol/L (3.5-5.1)
[2021-08-09 06:12] LABS: Add RBC Morph Yes; Slide Review Slide Review Perform
[2021-08-09 06:13] LABS: Anisocytosis 2+; Hypochromasia 1+; Neutrophils # 0.89 10^3/uL (1.8-7.7); Polychromasia Trace; RBC Morph Comp No
[2021-08-09] MEDS: tamsulosin 0.4 mg Capsule PO ×2 (09:29→17:54)
[2021-08-09] MEDS: midodrine 5 mg TABLET 10 MG PO ×3 (09:30→22:03)
--- NOTE | 2021-08-09 12:41 | PC.SOCIAL ---
IMM Updated Updated pt on IMM. No questions voiced. Provided pt a copy. Initialed, dated, & timed copy in chart.
--- NOTE | 2021-08-09 15:10 | PM.PN ---
Subjective Subjective: Patient was seen this morning, son is at bedside, patient is upset that he still orthostatic positive, he tells me that when he got up to do his orthostatic vitals with the nursing staff, when he stood up, everything in the parking lot outside his window when it bit easy for a few seconds, he did not really pass out, but then everything returned back to normal, -I advised him that he is received roughly 48 hours of hydration I do not think dehydration is playing a role to his orthostats, nor do I think it is a significant component of his anemia -I think likely his orthostatic positive or a combination of his chemotherapy and over the aortic stenosis likely the aortic stenosis playing more of a role -He he knows that he needs to have any aortic valve replacement, but everything was on hold given his chemotherapy -He has had his aortic valve opened up before, and the surgeon that it is that that he needed to have an aortic valve replacement at some point -I advised that at this point likely will need to do is to ambulate with care especially when changing positions, continue to monitor for symptomatology, monitor his pain given his pubic rami fracture -He does have a high risk of falls, especially associate with orthostats, will have to avoid blood pressure medications -Given that he is on Eliquis this is quite a concern, however he tells me that he is able to ambulate, he is able to change positions carefully - Vitals/I&O/Wt Last Vital Signs Temp 98.2 F 08/09/21 12:00 Pulse 96 08/09/21 12:00 Resp 18 08/09/21 12:00 BP 124/73 08/09/21 12:00 Pulse Ox 92 08/09/21 12:00 08/09/21 08/09/21 08/09/21 06:59 14:59 22:59 Intake Total 1359.167 / 2616.667 720 / 720 Output Total 480 / 580 75 / 75 Balance 879.167 / 2036.667 645 / 645 Physical Exam Const: COMMON NORMALS: no acute distress and patient oriented x3 Resp: COMMON NORMALS: normal respiratory effort, No retractions, No use of accessory muscles and clear to auscultation bilaterally AUSCULTATION: clear to auscultation bilaterally Cardio: COMMON NORMALS: regular rate, regular rhythm, S1 normal heart sound present and S2 normal heart sound present RATE: regular rate RHYTHM: regular rhythm HEART SOUNDS: S1 normal heart sound present and S2 normal heart sound present GI: COMMON NORMALS: Normal to inspection, nondistended, normoactive bowel sounds present, Soft to palpation, non-tender and No hepatosplenomegaly present PALPATION: Yes Soft to palpation and Yes No hepatosplenomegaly present Extremity: COMMON NORMALS: no pedal edema Neuro: COMMON NORMALS: patient oriented x3 Psych: COMMON NORMALS: mental status grossly normal Data : 08/09/21 04:38 08/09/21 04:38 Micro: Microbiology 08/04/21 16:11 Blood Culture - Final Blood Coagulase negativ staphylococc 08/08/21 09:48 Occult Blood (FIT) - Final Stool Routine Collection A&P Assessment and plan (1) Acute anemia: Additional decrease in hemoglobin today, down to 7.1, and he is quite significantly orthostatic, discussed with him regarding additional unit of red blood cells to which she is agreeable. Platelets appear to be holding up at this time, no additional platelet transfusion for now. Follow-up blood counts tonight and tomorrow. Previously hemoglobin decreased to 6.7. Acute anemia multifactorial, possible blood loss with pelvic fracture, in addition to anemia secondary to chemotherapy, also reports having hematochezia back in 08/01 after RBC transfusion at that time. So far no bloody or melanotic bowel movements. Received 1 unit RBC and 2 units of platelets on 08/04 so far with good response. Requested occult blood stool. Status: Acute (2) Orthostatic hypotension: Orthostatic blood pressures assessed today with PT, with noted severe orthostasis, blood pressure 122/68 supine, 102/62 sitting, down to 69/33 standing. Was set back down immediately. Additional RBC transfusion as above. Discussed with him also started on midodrine. Reassess. In case persistent hypotension, may additionally need consideration of reevaluation and possible repair of aortic valve stenosis. EF on limited echo appears normal. Status: Acute (3) Atrial fibrillation with rapid ventricular response: Heart rates are doing much better. Give additional potassium, magnesium. Continue metoprolol 12.5 mg. Weaned off Cardizem drip. Replaced serum magnesium. Additional replacement of potassium today. Monitor heart rates. Recheck electrolytes in the morning. Check TSH elevated. Check free T4, free T3. Troponin series not suggestive of acute ischemia. Mild elevation of troponin. Assess TTE. Status: Acute (4) Closed pelvic fracture: After fall, posterior left inferior pubic rami extending to the ischium. Follow-up blood counts, platelet levels, requested platelets to be available in case needing transfusion. Conservative management for now. PT, OT, although has been limited by severe orthostasis Status: Acute (5) Pancytopenia: Recheck blood count this evening, and then again in the morning given pelvic fractures, anemia, for which he did receive 2 units RBC transfusions on 08/01, also reports hematochezia the same afternoon after which he stopped taking Eliquis. With platelets 16,000, but on recheck 27,000. 2 units of platelets on hold been requested. Neutropenia with absolute neutrophil count 500, recheck 700. Neutropenic precautions and neutropenic diet. Check blood culture. He is afebrile. Uninformative Pro-Pedro Status: Acute (6) Fall: After losing balance after getting up from the bed. With bruising, several skin tears which have now stopped bleeding. With known moderate-severe aortic stenosis. Once he is more stable check orthostatic precautions. PT, OT, although has been limited by severe orthostasis found today If persistent symptoms, consideration of aortic valve repair. Status: Acute (7) Thrombocytopenia: Status: Acute (8) Hematochezia: Reports hematochezia on 08/01 after receiving 2 units RBC transfusion. He stopped Eliquis by himself at this time. Check Hemoccult Continue to hold anticoagulation. Once neutropenia resolves would benefit from additional assessment by endoscopy. PPI, although low suspicion that it was upper GI bleed Status: Acute (9) Pleural effusion: Large right pleural effusion, stable from prior. Once he is a bit more stable, with improvement in platelets, consider thoracentesis. 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 Mass/malignancy again noted in the right hilar and region mediastinum causing SVC stenosis, similar to prior exam. 3. Spiculated mass in the right upper lobe concerning for malignancy, similar to prior exam. 4. Persistent large right-sided pleural effusion, similar to prior exam. 5. Stable and slightly decreased areas of masslike consolidation consolidation in the the left lower lobe Aortic stenosis -Thickened and stenotic aortic valve -Has had surgical intervention in the past -We will need to at some point follow-up with cardiothoracic surgery for consideration of aortic valve replacement however this is dependent on his lung cancer, and it status Atrial fibrillation -Hold metoprolol -Given his Hemoccult positive stools, and anemia, I think placing him on anticoagulation would carry high risks, for now it is on hold -Monitor magnesium, potassium Pancytopenia -Likely chemotherapy-induced -Hemoccult stool was positive -Has received 1 unit PRBC, 2 units platelets on 611 -Remains neutropenic -Neutropenic precautions, keep an eye on blood counts Fall -Likely combination of anemia, orthostatic hypotension, deconditioning, aortic stenosis Left pleural effusion -Currently not symptomatic, continue to monitor -Monitor require thoracocentesis Attestations Medical Necessity Statement*: Patient requires hospitalization for pubic rami fracture, lung cancer, aortic stenosis, orthostatic hypotension, Coding Level of Care Code Acute Field Radio Technician for [facility] 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
--- NOTE | 2021-08-09 16:35 | PC.OT ---
OT TREATMENT ATTEMPTED. PATIENT REFUSED TO PARTICIPATE STATING IT WAS TOO LATE IN THE DAY. OT TREATMENT PLAN TO BE ADJUSTED TO 4X WEEK DUE TO DECREASED PATIENT ENDURANCE.
[2021-08-10] VITALS (7 sets, daily range): BP systolic 70–133; BP diastolic 44–76; PULSE 70–102; RESP 16–18; TEMP 36.5–37.7; O2SAT 88–100
[2021-08-10] MEDS: pantoprazole 40 mg SDV IVP ×2 (03:36→15:30)
[2021-08-10] MEDS: acetaminophen 325 mg Tablet 650 MG PO ×2 (03:37→15:28)
[2021-08-10 05:22] LABS: Basophils % 0.6 %; Eosinophils % 0.6 %; Hematocrit 23.3 % (42.0-52.0); Hemoglobin 7.9 g/dL (11.7-16.6); Lymphocytes # 0.4 10^3/uL (0.8-4.8); Lymphocytes % 24.4 %; Mean Corpuscular HGB Conc 33.9 g/dL (30.0-36.0); Mean Corpuscular Hemoglobin 30.9 pg (28.0-34.0); Mean Platelet Volume 9.6 fL (7.4-10.4); Monocytes # 0.4 10^3/uL (0.2-0.9); Monocytes % 21.7 %; Neutrophils % 52.1 %; Nucleated Red Blood Cells % 0 %; Platelet Count 109 10^3/cmm (130-400); Red Blood Count 2.56 10^6/uL (4.1-5.3); Red Cell Distribution Width 16.5 % (12.1-15.1); White Blood Count 1.8 10^3/uL (4.0-10.0)
[2021-08-10 05:43] LABS: Alanine Aminotransferase 6 U/L (0-41); Alkaline Phosphatase 68 IU/L (40-130); Anion Gap 13.5 (5-19); Aspartate Amino Transferase 8 U/L (0-40); Blood Urea Nitrogen 5 mg/dL (8-23); C Reactive Protein 24.5 mg/L (0.0-4.9); Calcium 8.4 mg/dL (8.5-10.5); Carbon Dioxide 26 mmol/L (22-29); Chloride 100 mmol/L (98-107); Globulin 2.7 g/dL (1.3-4.6); Glucose 90 mg/dL (65-115); Magnesium 1.7 mg/dL (1.7-2.3); Neutrophils # 0.94 10^3/uL (1.8-7.7); Osmolality Calculated 279 mOsm/kg (285-295); Phosphorus 3.7 mg/dL (2.5-4.5); Potassium 3.5 mmol/L (3.5-5.1); Slide Review Slide Review Perform; Sodium 136 mmol/L (136-145); Total Bilirubin 0.6 mg/dL (0.15-1.2); Total Protein 5.7 g/dL (6.6-8.7)
[2021-08-10 05:49] LABS: Procalcitonin 0.09 ng/mL (0-0.5)
--- NOTE | 2021-08-10 08:00 | MR_ITS ---
WS: [id number] MRI BRAIN WITHOUT CONTRAST HISTORY: syncope COMPARISON: Head CT 08/04/2021 TECHNIQUE: Diffusion imaging, multiplanar T1, T2 and FLAIR imaging obtained. No evidence for acute infarct or hemorrhage. Magallanes-white matter differentiation is normal. Tiny lacuna r infarct in the RIGHT moy radiata. Mild atrophy is symmetric. Very mild small vessel ischemic type changes. Ventricles and extra-axial spaces are normal. No inferior displacement of cerebellar tonsils. The sella turcica and pituitary gland are unremarkabl e. Dural venous sinuses and [place] of [place] demonstrate no abnormality on this unenhanced studies. Paranasal sinuses: Clear. Mastoid air cells: Bilateral effusions and mastoid air cells, RIGHT greater than LEFT. Calvarium and scalp: Intact. MR/MR head wo con* [id number] IMPRESSION: 1. No acute infarct or hemorrhage. 2. Atrophy and mild small vessel ischemic disease. 3. Bilateral mastoid air cell effusions, RIGHT greater than LEFT.
[2021-08-10] MEDS: tamsulosin 0.4 mg Capsule PO ×2 (08:12→18:00)
[2021-08-10] MEDS: midodrine 5 mg TABLET 10 MG PO ×3 (08:12→21:28)
[2021-08-10] MEDS: NON-FORMULARY MEDICATION (Methenamine Hippurate 1 gram tablet) 1 EACH PO ×2 (11:47→18:00)
--- NOTE | 2021-08-10 12:53 | PM.PN ---
Subjective Subjective: patient was seen this morning, case workers at bedside, i discussed patient's present state, his persistent hypotension, I discussed with him his underlying lung malignancy, his poor response to chemotherapy, I discussed his care with Dr. Caraballo, Dr. Caraballo feels that patient has had a poor response to chemotherapy, he has had a poor functional status, and patient's aortic valve stenosis has been an issue throughout the past, and unfortunately its not come to the forefront in terms of treatment because of his underlying lung malignancy, evidence of metastasis, poor response to chemotherapy -I discussed options with patient, he tells me he does not want to have chemotherapy, he tells me liquid chemotherapy is done with me, he is weak, he is hypotensive he is orthostatic positive from chemotherapy he does not want to have it anymore -He tells me he wants to go home, and he wants to go home on hospice -I did discuss with aortic valve replacement I advised that we could certainly discharge him and have him follow-up with a reclamation kettle tender outpatient for aortic valve replacement however I do not feel that right now he is a candidate for surgery given his poor functional status, nor with the emergently to the surgery and given his lung malignancy evidence of metastasis and poor response to chemotherapy I do not feel that they would likely perform surgery unless he would have a good performance status or response to chemotherapy from his lung cancer or clinical improvement from his lung cancer -Nonetheless I discussed all options available to patient, he voices any, all questions answered -He tells me that he he wants to go home on hospice, discussed risk and benefits of hospice, he worsened; questions answered, agreed to proceed Vitals/I&O/Wt Last Vital Signs Temp 98.6 F 08/10/21 12:00 Pulse 72 08/10/21 12:00 Resp 18 08/10/21 12:00 BP 133/74 08/10/21 12:00 Pulse Ox 100 08/10/21 12:00 08/09/21 08/10/21 08/10/21 22:59 06:59 14:59 Intake Total 960 / 1680 720 / 720 Output Total 350 / 425 200 / 200 Balance 610 / 1255 520 / 520 Physical Exam Const: COMMON NORMALS: no acute distress and patient oriented x3 Resp: COMMON NORMALS: normal respiratory effort, No retractions, No use of accessory muscles and clear to auscultation bilaterally AUSCULTATION: clear to auscultation bilaterally Cardio: COMMON NORMALS: regular rate, regular rhythm, S1 normal heart sound present and S2 normal heart sound present RATE: regular rate RHYTHM: regular rhythm HEART SOUNDS: S1 normal heart sound present, S2 normal heart sound present and Murmur heart sound present GI: COMMON NORMALS: Normal to inspection, nondistended, normoactive bowel sounds present, Soft to palpation and non-tender PALPATION: Yes Soft to palpation Extremity: COMMON NORMALS: no pedal edema Neuro: COMMON NORMALS: patient oriented x3 Psych: COMMON NORMALS: mental status grossly normal Data : 08/10/21 04:55 08/10/21 04:55 Micro: Microbiology 08/04/21 15:40 Blood Culture - Final Blood NO GROWTH AFTER 5 DAYS 08/04/21 16:11 Blood Culture - Final Blood Coagulase negativ staphylococc A&P Assessment and plan (1) Acute anemia: Additional decrease in hemoglobin today, down to 7.1, and he is quite significantly orthostatic, discussed with him regarding additional unit of red blood cells to which she is agreeable. Platelets appear to be holding up at this time, no additional platelet transfusion for now. Follow-up blood counts tonight and tomorrow. Previously hemoglobin decreased to 6.7. Acute anemia multifactorial, possible blood loss with pelvic fracture, in addition to anemia secondary to chemotherapy, also reports having hematochezia back in 08/01 after RBC transfusion at that time. So far no bloody or melanotic bowel movements. Received 1 unit RBC and 2 units of platelets on 08/04 so far with good response. Requested occult blood stool. Status: Acute (2) Orthostatic hypotension: Orthostatic blood pressures assessed today with PT, with noted severe orthostasis, blood pressure 122/68 supine, 102/62 sitting, down to 69/33 standing. Was set back down immediately. Additional RBC transfusion as above. Discussed with him also started on midodrine. Reassess. In case persistent hypotension, may additionally need consideration of reevaluation and possible repair of aortic valve stenosis. EF on limited echo appears normal. Status: Acute (3) Atrial fibrillation with rapid ventricular response: Heart rates are doing much better. Give additional potassium, magnesium. Continue metoprolol 12.5 mg. Weaned off Cardizem drip. Replaced serum magnesium. Additional replacement of potassium today. Monitor heart rates. Recheck electrolytes in the morning. Check TSH elevated. Check free T4, free T3. Troponin series not suggestive of acute ischemia. Mild elevation of troponin. Assess TTE. Status: Acute (4) Closed pelvic fracture: After fall, posterior left inferior pubic rami extending to the ischium. Follow-up blood counts, platelet levels, requested platelets to be available in case needing transfusion. Conservative management for now. PT, OT, although has been limited by severe orthostasis Status: Acute (5) Pancytopenia: Recheck blood count this evening, and then again in the morning given pelvic fractures, anemia, for which he did receive 2 units RBC transfusions on 08/01, also reports hematochezia the same afternoon after which he stopped taking Eliquis. With platelets 16,000, but on recheck 27,000. 2 units of platelets on hold been requested. Neutropenia with absolute neutrophil count 500, recheck 700. Neutropenic precautions and neutropenic diet. Check blood culture. He is afebrile. Uninformative Pro-Pedro Status: Acute (6) Fall: After losing balance after getting up from the bed. With bruising, several skin tears which have now stopped bleeding. With known moderate-severe aortic stenosis. Once he is more stable check orthostatic precautions. PT, OT, although has been limited by severe orthostasis found today If persistent symptoms, consideration of aortic valve repair. Status: Acute (7) Thrombocytopenia: Status: Acute (8) Hematochezia: Reports hematochezia on 08/01 after receiving 2 units RBC transfusion. He stopped Eliquis by himself at this time. Check Hemoccult Continue to hold anticoagulation. Once neutropenia resolves would benefit from additional assessment by endoscopy. PPI, although low suspicion that it was upper GI bleed Status: Acute (9) Pleural effusion: Large right pleural effusion, stable from prior. Once he is a bit more stable, with improvement in platelets, consider thoracentesis. 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 Mass/malignancy again noted in the right hilar and region mediastinum causing SVC stenosis, similar to prior exam. 3. Spiculated mass in the right upper lobe concerning for malignancy, similar to prior exam. 4. Persistent large right-sided pleural effusion, similar to prior exam. 5. Stable and slightly decreased areas of masslike consolidation consolidation in the the left lower lobe Aortic stenosis -Thickened and stenotic aortic valve -Has had surgical intervention in the past -We will need to at some point follow-up with cardiothoracic surgery for consideration of aortic valve replacement however this is dependent on his lung cancer, and it status Atrial fibrillation -Hold metoprolol -Given his Hemoccult positive stools, and anemia, I think placing him on anticoagulation would carry high risks, for now it is on hold -Monitor magnesium, potassium Pancytopenia -Likely chemotherapy-induced -Hemoccult stool was positive -Has received 1 unit PRBC, 2 units platelets on 611 -Remains neutropenic -Neutropenic precautions, keep an eye on blood counts Fall -Likely combination of anemia, orthostatic hypotension, deconditioning, aortic stenosis Left pleural effusion -Currently not symptomatic, continue to monitor -Monitor require thoracocentesis Attestations Medical Necessity Statement*: Patient requires hospitalization , proceeding to hospice Coding Level of Care Code Acute Traditional [employer] Health Practitioner for [facility] 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
[2021-08-11 00:29] VITALS: BP 105/61; PULSE 67; RESP 17; TEMP 36.6; O2SAT 98
[2021-08-11] MEDS: pantoprazole 40 mg SDV IVP (03:29)
[2021-08-11 04:19] VITALS: BP 132/69; PULSE 69; RESP 17; TEMP 36.9; O2SAT 100
[2021-08-11 05:50] LABS: Basophils % 0.5 %; Eosinophils % 0.5 %; Hematocrit 25.1 % (42.0-52.0); Hemoglobin 8.4 g/dL (11.7-16.6); Lymphocytes # 0.4 10^3/uL (0.8-4.8); Lymphocytes % 21.2 %; Mean Corpuscular HGB Conc 33.5 g/dL (30.0-36.0); Mean Corpuscular Hemoglobin 30.9 pg (28.0-34.0); Mean Corpuscular Volume 92.3 fl (80-94); Mean Platelet Volume 9.6 fL (7.4-10.4); Monocytes # 0.5 10^3/uL (0.2-0.9); Monocytes % 23.2 %; Neutrophils # 1.05 10^3/uL (1.8-7.7); Neutrophils % 53.1 %; Nucleated Red Blood Cells % 0 %; Platelet Count 125 10^3/cmm (130-400); Red Blood Count 2.72 10^6/uL (4.1-5.3)
[2021-08-11 06:13] LABS: Anion Gap 10.6 (5-19); Blood Urea Nitrogen 5 mg/dL (8-23); Carbon Dioxide 28 mmol/L (22-29); Chloride 98 mmol/L (98-107); Potassium 3.6 mmol/L (3.5-5.1); Sodium 133 mmol/L (136-145)
[2021-08-11 06:14] LABS: Alanine Aminotransferase < 5 U/L (0-41); Albumin Level 3.3 g/dL (3.5-5.2); Alkaline Phosphatase 74 IU/L (40-130); Aspartate Amino Transferase 10 U/L (0-40); Calcium 8.7 mg/dL (8.5-10.5); Globulin 2.5 g/dL (1.3-4.6); Glucose 86 mg/dL (65-115); Magnesium 1.7 mg/dL (1.7-2.3); Osmolality Calculated 273 mOsm/kg (285-295); Phosphorus 3.7 mg/dL (2.5-4.5); Total Bilirubin 0.5 mg/dL (0.15-1.2); Total Protein 5.8 g/dL (6.6-8.7)
[2021-08-11 06:15] LABS: Slide Review Slide Review Perform
[2021-08-11 08:00] VITALS: BP 144/69; PULSE 71; RESP 16; TEMP 36.5; O2SAT 98
[2021-08-11 08:45] VITALS: PULSE 80; RESP 16; O2SAT 100
[2021-08-11] MEDS: midodrine 5 mg TABLET 10 MG PO (08:59)
[2021-08-11] MEDS: tamsulosin 0.4 mg Capsule PO (09:01)
--- NOTE | 2021-08-11 10:51 | PM.DCS ---
Discharge Providers Date of Admission: 08/04/21 08:56 Date of Discharge: August 11, 2021 Attending Provider at Admission: Dae Zacarias Attending Provider at Discharge: Adelfo Lobo MD Primary Care Provider: Leonard Huerta DO Diagnoses at Discharge Discharge Diagnosis (1) Acute anemia: Status: Acute (2) Orthostatic hypotension: Status: Acute (3) Atrial fibrillation with rapid ventricular response: Status: Acute (4) Closed pelvic fracture: Status: Acute (5) Pancytopenia: Status: Acute (6) Fall: Status: Acute (7) Thrombocytopenia: Status: Acute (8) Hematochezia: Status: Acute (9) Pleural effusion: Status: Acute (10) Chemotherapy induced neutropenia: Status: Acute (11) Severe aortic stenosis: Status: Acute (12) 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: Status: Acute (13) Malignant neoplasm of upper lobe, right bronchus or lung: Status: Acute Permanent problem details: Stage NICOLE - T4, N3, M1a Reason for Visit Reason for Visit: FALL/AFIB Hospital Course Hospital Course This is a 76-year-old male with a history of 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, with evidence of metastatic lesions, T4, N3, M1A, with evidence of superior vena cava obstruction, disease progression of the right upper lobe, right suprahilar and right middle mediastinal tumor associated with occlusion of the right upper lobe bronchus with collapse of right upper lobe, with new large metastatic lesions in the left lower lobe superior segment, status post palliative radiation, cycle 4 chemotherapy, history of CAD, history of hyperlipidemia, CKD, history of atrial fibrillation on Eliquis, history of chemotherapy-induced pancytopenia, history of severe aortic stenosis status balloon valvuloplasty, with recurrence of severe aortic stenosis, COPD, BPH, history of closed left hip fracture who presents to [facility] due to lightheadedness, with a fall. Patient was admitted to [facility] for lightheadedness etiology of her lightheadedness is likely secondary to anemia, aortic stenosis, chemotherapy, orthostatic hypotension -Patient was admitted to [facility], was found to have orthostatic hypotension, persistent orthostatic hypotension despite fluids, blood transfusions, platelet transfusions, no evidence of UTI, no evidence of pneumonia, his beta-john was stopped, and orthostatic hypotension persisted despite midodrine -Thus likely his orthostatic hypotension, persistent lightheadedness, especially when changing positions is associated with patient's severe aortic stenosis and chemotherapy induced -This is associated with a high risk of falls, high risk of morbidity and mortality, unfortunately there is no good solution -Unfortunately given his metastatic lung cancer, advanced progression, poor functional status he is already had a balloon valvuloplasty for his aortic stenosis there was discussion about aortic valve replacement but given his lung cancer status and current status he is unlikely to be a good surgical candidate for aortic valve replacement. I discussed this with him, and his family in detail, we can certainly try to discharge him home and have him follow-up with cardiothoracic surgery as outpatient, however given his advanced lung cancer and urgent replacement is very unlikely. And given his advanced lung cancer, metastatic lung cancer, and poor functional status, he is unlikely to be a good surgical candidate, but this certainly discussion he can have with cardiothoracic surgery -He has received chemotherapy, has suffered pancytopenia from chemotherapy, since his fourth cycle, he likely has also developed a component of chemotherapy-induced orthostatic hypotension, has received midodrine, however remained orthostatic positive - he was anemic during his hospitalization, likely multifactorial, his Hemoccults were positive, likely slow GI bleed as he is on Eliquis, anticoagulation was stopped he had received 2 units during his hospitalization, there is also component chemotherapy-induced anemia -I had extensive discussions with patient and family, certainly this is a difficult situation, he has advanced lung cancer, evidence of metastasis, poor response to chemotherapy, chemotherapy-induced pancytopenia and orthostatic hypotension, no evidence of slow GI bleed, with severe aortic stenosis, poor functional status, with now with pubic rami fracture -I had a discussion with Dr. Caraballo, patient has advanced lung cancer, poor response to chemotherapy, has received palliative radiation therapy in the past, now given his aortic stenosis, he has had a gradual functional decline, has a poor performance status, hospice would be reasonable -And he has severe aortic stenosis, which is difficult to be intervened on given his advanced lung cancer -Patient tells me he wants to go home, he does not want to have chemotherapy anymore, he does want to have his aortic valve intervened on, but he understands that his advanced lung cancer makes him a poor candidate -After discussion of the risks and benefits, he voices understanding, all questions answered, agreed to proceed with home hospice -Patient will be discharged home on hospice -In terms of atrial fibrillation, given his medical positive stools, anemia, falls, recurrent syncope, orthostatic positive I think that he has a high risk of morbidity mortality associatedwith anticoagulation. Discuss risks of stroke versus risk of bleeding and falls, he voiced All questions answered, agreed to discontinue Eliquis. I have also discontinued his metoprolol given his orthostatic hypotension. -For his aortic stenosis, he is going on home on hospice, currently poor surgical candidate -Pancytopenia, chemotherapy-induced, continue to monitor -Left pleural effusion, currently asymptomatic -Inferior pubic rami fracture, related to fall, orthostatic hypotension, PT OT, pain control, discharged home on hospice -Lung cancer, CT scanning's as below 2. Mass/malignancy again noted in the right hilar and region mediastinum causing SVC stenosis, similar to prior exam. 3. Spiculated mass in the right upper lobe concerning for malignancy, similar to prior exam. 4. Persistent large right-sided pleural effusion, similar to prior exam. 5. Stable and slightly decreased areas of masslike consolidation consolidation in the the left lower lobe Physical Exam Const: COMMON NORMALS: no acute distress and patient oriented x3 Resp: COMMON NORMALS: normal respiratory effort, No retractions, No use of accessory muscles and clear to auscultation bilaterally AUSCULTATION: clear to auscultation bilaterally Cardio: COMMON NORMALS: regular rate, regular rhythm, S1 normal heart sound present and S2 normal heart sound present RATE: regular rate RHYTHM: regular rhythm HEART SOUNDS: S1 normal heart sound present and S2 normal heart sound present GI: COMMON NORMALS: Normal to inspection, nondistended, normoactive bowel sounds present, Soft to palpation and non-tender PALPATION: Yes Soft to palpation Extremity: COMMON NORMALS: no pedal edema Neuro: COMMON NORMALS: patient oriented x3 Discharge Data Studies Completed and Pending Completed Studies During Hospitalization Category Date Time Status CT cervical spin wo con* [id number] Urgent Cat Scan 08/04/21 06:[address] chest abdomen pelvis [CT chest abd pel w con*] Cat Scan 08/04/21 06:[address] head wo con* [id number] Urgent Cat Scan 08/04/21 06:43 Completed XR chest 1V portable [id number] Urgent Exams 08/04/21 06:43 Completed XR hip RT 2-3V wo/w pel* [id number] Stat Exams 08/04/21 06:43 Completed MR head wo con* [id number] Routine MRI 08/10/21 08:00 Completed CV. echo limited [id number] Routine Ultrasound 08/05/21 13:12 Completed Pending at discharge Category Date Time Status ABO/Rh Type Stat Lab 08/04/21 07:00 Results Complete Blood Count w/Auto AM LABS Lab 08/12/21 04:00 Ordered Complete Blood Count w/Auto AM LABS Lab 08/13/21 04:00 Ordered Complete Crossmatch Stat Lab 08/04/21 07:00 Results Comprehensive Metabolic Panel AM LABS Lab 08/12/21 04:00 Ordered Comprehensive Metabolic Panel AM LABS Lab 08/13/21 04:00 Ordered Irrad Leukoreduced PLT Pher Stat Lab 08/04/21 07:00 Results Irradiated Leuko Red RBC Routine Lab 08/04/21 07:00 Results Leukocyte Reduced RBC Routine Lab 08/04/21 07:00 Results Magnesium AM LABS Lab 08/12/21 04:00 Ordered Magnesium AM LABS Lab 08/13/21 04:00 Ordered Phosphorus AM LABS Lab 08/12/21 04:00 Ordered Phosphorus AM LABS Lab 08/13/21 04:00 Ordered Platelets Leuko-Reduced Routine Lab 08/04/21 07:00 Results Type and Screen Stat Lab 08/04/21 07:00 Results Radiology Impressions Cervical Spine CT 08/04/21 06:43 IMPRESSION: 1. No acute fracture or traumatic malalignment identified within the cervical spine. 2. Large right-sided pleural effusion. Chest X-Ray 08/04/21 06:43 IMPRESSION: 1. Right-sided pleural effusion with right basilar consolidation either atelectasis versus pneumonia. 2. Increased density in the right upper lung adjacent to the mediastinum, may correlate with previously noted consolidation/mass. Chest/Abdomen/Pelvis CT 08/04/21 06:43 IMPRESSION: 1. No acute traumatic injury identified in the chest. 2. Mass/malignancy again noted in the right hilar and region mediastinum causing SVC stenosis, similar to prior exam. 3. Spiculated mass in the right upper lobe concerning for malignancy, similar to prior exam. 4. Persistent large right-sided pleural effusion, similar to prior exam. 5. Stable and slightly decreased areas of masslike consolidation consolidation in the the left lower lobe. IMPRESSION: 1. Fracture in the posterior left inferior pubic rami and ischium. 2. Large right-sided inguinal hernia containing portions of the colon and small bowel without definitive signs of obstruction. 3. Minimal free fluid in the dependent portion of the pelvis of indeterminate etiology. Head CT 08/04/21 06:43 IMPRESSION: 1. No acute intracranial abnormality identified. 2. Mild chronic microvascular ischemic disease. Hip/Pelvis X-Ray 08/04/21 06:43 IMPRESSION: No right hip fracture identified. Head MRI 08/10/21 08:00 IMPRESSION: 1. No acute infarct or hemorrhage. 2. Atrophy and mild small vessel ischemic disease. 3. Bilateral mastoid air cell effusions, RIGHT greater than LEFT. Laboratory Results WBC 2.0 10^3/uL (4.0-10.0) L 08/11/21 05:30 Corrected WBC Cancelled 08/08/21 05:15 RBC 2.72 10^6/uL (4.1-5.3) L 08/11/21 05:30 Hgb 8.4 g/dL (11.7-16.6) L 08/11/21 05:30 Hct 25.1 % (42.0-52.0) L 08/11/21 05:30 MCV 92.3 fl (80-94) 08/11/21 05:30 MCH 30.9 pg (28.0-34.0) 08/11/21 05:30 MCHC 33.5 g/dL (30.0-36.0) 08/11/21 05:30 RDW 17.0 % (12.1-15.1) H 08/11/21 05:30 Plt Count 125 10^3/cmm (130-400) L 08/11/21 05:30 MPV 9.6 fL (7.4-10.4) 08/11/21 05:30 Gran % Cancelled 08/08/21 05:15 Neut % (Auto) 53.1 % 08/11/21 05:30 Lymph % (Auto) 21.2 % 08/11/21 05:30 [place] % (Auto) 23.2 % 08/11/21 05:30 Eos % (Auto) 0.5 % 08/11/21 05:30 Baso % (Auto) 0.5 % 08/11/21 05:30 Neut # (Auto) 1.05 10^3/uL (1.8-7.7) L 08/11/21 05:30 Lymph # (Auto) 0.4 10^3/uL (0.8-4.8) L 08/11/21 05:30 [place] # (Auto) 0.5 10^3/uL (0.2-0.9) 08/11/21 05:30 Eos # (Auto) 0.0 10^3/uL (0.0-0.8) 08/11/21 05:30 Baso # (Auto) 0.0 10^3/uL (0.0-0.1) 08/11/21 05:30 Absolute Gran (auto) Cancelled 08/08/21 05:15 Nucleated RBC % (auto) 0 % 08/11/21 05:30 Nucleated RBCs # 0.0 /100WBC 08/11/21 05:30 Polychromasia Trace 08/09/21 04:38 Hypochromasia 1+ H 08/09/21 04:38 Anisocytosis 2+ H 08/09/21 04:38 Sodium 133 mmol/L (136-145) L 08/11/21 05:30 Potassium 3.6 mmol/L (3.5-5.1) 08/11/21 05:30 Chloride 98 mmol/L (98-107) 08/11/21 05:30 Carbon Dioxide 28 mmol/L (22-29) 08/11/21 05:30 Anion Gap 10.6 (5-19) 08/11/21 05:30 BUN 5 mg/dL (8-23) L 08/11/21 05:30 Creatinine 0.3 mg/dL (0.7-1.2) L 08/11/21 05:30 GFR Calculation Not Reportable 08/11/21 05:30 Glucose 86 mg/dL (65-115) 08/11/21 05:30 Calculated Osmolality 273 mOsm/kg (285-295) L 08/11/21 05:30 Calcium 8.7 mg/dL (8.5-10.5) 08/11/21 05:30 Phosphorus 3.7 mg/dL (2.5-4.5) 08/11/21 05:30 Magnesium 1.7 mg/dL (1.7-2.3) 08/11/21 05:30 Total Bilirubin 0.5 mg/dL (0.15-1.2) 08/11/21 05:30 AST 10 U/L (0-40) 08/11/21 05:30 ALT < 5 U/L (0-41) 08/11/21 05:30 Alkaline Phosphatase 74 IU/L (40-130) 08/11/21 05:30 Troponin T Baseline 33 ng/L (0-15) H 08/04/21 16:11 Troponin T 120 Minute 34.29 ng/L (0-15) H 08/04/21 18:10 Delta Troponin T 1.29 ABS# (0-10) 08/04/21 18:10 Troponin T Hi Sens 6Hr 33.37 ng/L (0-15) H 08/04/21 22:09 Troponin T Hi Sens 6Hr Delta 0.37 ng/L (0-12) 08/04/21 22:09 C-Reactive Protein 24.5 mg/L (0.0-4.9) H 08/10/21 04:55 Total Protein 5.8 g/dL (6.6-8.7) L 08/11/21 05:30 Albumin 3.3 g/dL (3.5-5.2) L 08/11/21 05:30 Globulin 2.5 g/dL (1.3-4.6) 08/11/21 05:30 Procalcitonin 0.09 ng/mL (0-0.5) 08/10/21 04:55 TSH 6.28 uIU/mL (0.27-4.20) H 08/05/21 04:15 Thyroxine (T4) 6.9 mcg/dL (4.9-10.5) 08/05/21 09:10 Free T3 1.6 PG/ML (2.0-4.4) L 08/05/21 04:15 Urine Color Dark yellow (Yellow) 08/07/21 13:48 Urine Appearance Clear (CLEAR) 08/07/21 13:48 Urine pH 7 (5-7) 08/07/21 13:48 Ur Specific [place] 1.005 (1.005-1.030) 08/07/21 13:48 Urine Protein Neg (Negative) 08/07/21 13:48 Urine Glucose (UA) Norm (Normal) 08/07/21 13:48 Urine Ketones Negative (Negative) 08/07/21 13:48 Urine Blood Neg (Negative) 08/07/21 13:48 Urine Nitrate Negative (Negative) 08/07/21 13:48 Urine Bilirubin 1+ (Negative) H 08/07/21 13:48 Urine Urobilinogen 4+ mg/dL (Negative) H 08/07/21 13:48 Ur Leukocyte Esterase Negative (Negative) 08/07/21 13:48 Blood Type A Positive 08/04/21 07:00 Rho(D) Type Positive 08/04/21 07:00 Antibody Screen Negative 08/04/21 07:00 Crossmatch See Detail 08/04/21 07:00 Vitals Last Vital Signs Temp 97.7 F 08/11/21 08:00 Pulse 80 08/11/21 08:45 Resp 16 08/11/21 08:45 BP 144/69 08/11/21 08:00 Pulse Ox 100 08/11/21 08:45 Discharge Plan Discharge Patient Disposition: Hospice - Home Condition: Stable Prescriptions: New midodrine 5 mg Tablet 10 mg PO QID 30 Days Qty: 240 0RF Protonix 40 mg tablet,delayed release (DR/EC) 40 mg PO BID 30 Days Qty: 60 0RF Carafate 1 gram tablet 1 g PO BID 28 Days Qty: 56 0RF Continued ascorbic acid (vitamin C) 1,000 mg tablet 1 g PO BID 0RF methenamine hippurate 1 gram tablet 1 g PO BID 0RF Hold Instructions: Doctor's Order tamsulosin 0.4 mg capsule 0.4 mg PO BID 0RF magnesium citrate Solution 5 - 10 ml PO QAM 0RF Discontinued metoprolol succinate 25 mg tablet extended release 24 hr 12.5 mg PO QAM 0RF Eliquis 5 mg tablet 5 mg PO BID 0RF Discharge Orders: Discharge Order (Routine); Ordered 08/11/21 Ordered By: Adelfo Lobo Referrals: [facility] [place] [facility] ([facility]) [Outside] Leonard Huerta DO [Primary Care Provider] - 7-10 days (Please call Dr. Huerta's Office at [phone] to schedule your follow up appointment. Thank you.) Discharge Diet: Regular Discharge Activity: Resume usual activity Patient Instructions: Sucralfate (By mouth), Midodrine (By mouth), Pantoprazole (By mouth), Hospice Care Discharge Attestations Time Spent in Discharge Care*: less than 30 min Status at Discharge: Cognitive status at discharge: cognitively intact, Quality Metrics Clinical Quality Measures [ No reported AMI, CVA or VTE this stay] Coding Level of Care Code Acute Chg FW DC note Diagnoses Acute anemia D64.9 Orthostatic hypotension I95.1 Atrial fibrillation with rapid ventricular response I48.91 Closed pelvic fracture S32.9XXA Pancytopenia D61.818 Fall W19.XXXA Thrombocytopenia D69.6 Hematochezia K92.1 Pleural effusion J90 Chemotherapy induced neutropenia D70.1; T45.1X5A Severe aortic stenosis I35.0 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
--- NOTE | 2021-08-11 11:03 | PC.SOCIAL ---
IMM Update pg 2 of IMM updated and reviewed w/ patient. Copy provided and Copy in chart updated.
== END 2021-08-11 10:58 | disposition home or self-care (01) | DRG 809 ==
LOC: ER 08:54 → ICU 09:12 → MEDSURG 08-05 11:55
PROVIDERS: Internal Medicine; Admitting Provider Internal Medicine; Emergency Provider Emergency Medicine; PCP Family Medicine; Visit Provider Family Medicine
DX: D61.810 Antineoplastic chemotherapy induced pancytopenia (principal); S32.592A Other specified fracture of left pubis, initial encounter for closed fracture; S32.602A Unspecified fracture of left ischium, initial encounter for closed fracture; C34.11 Malignant neoplasm of upper lobe, right bronchus or lung; C78.02 Secondary malignant neoplasm of left lung; N13.8 Other obstructive and reflux uropathy; J90 Pleural effusion, not elsewhere classified; I87.1 Compression of vein; D64.81 Anemia due to antineoplastic chemotherapy; D69.59 Other secondary thrombocytopenia; T45.1X5A Adverse effect of antineoplastic and immunosuppressive drugs, initial encounter; W06.XXXA Fall from bed, initial encounter; I48.91 Unspecified atrial fibrillation; Z79.899 Other long term (current) drug therapy; D70.1 Agranulocytosis secondary to cancer chemotherapy; N40.1 Benign prostatic hyperplasia with lower urinary tract symptoms; J44.9 Chronic obstructive pulmonary disease, unspecified; I35.0 Nonrheumatic aortic (valve) stenosis; Z87.891 Personal history of nicotine dependence; N18.9 Chronic kidney disease, unspecified; E78.5 Hyperlipidemia, unspecified; Z92.3 Personal history of irradiation; I95.1 Orthostatic hypotension; K40.90 Unilateral inguinal hernia, without obstruction or gangrene, not specified as recurrent
CPT/HCPCS: 36415; 36430; 36591; 70450; 70551; 71045; 71260; 72125; 73502; 74177; 80053; 81003; 82274; 83735; 84100; 84145; 84436; 84443; 84481; 84484; 85018; 85025; 86140; 86850; 86900; 86920; 87040; 87150; 87205; 93005; 93308; 94664; 96365; 96375; 97110; 97162; 97165; 97530; 97535; 99285; C9113; J0610; J3475; J3480; J3490; J7030; P9016; P9037; P9040; Q9967